=== PATIENT | female | born 1975 | race Caucasian/White ===

== ENCOUNTER 2020-06-21 13:59 | Observation (INO) | payer MEDICAID, SELFPAY ==
--- NOTE | ~2020-06-21 | CT_ITS ---
EXAMINATION: CT abdomen pelvis w con DATE: 06/21/2020 15:17 INDICATION: Nausea and vomiting. Jaundice. Right abdominal pain. TECHNIQUE: Computed tomography (CT) of the abdomen and pelvis was performed with 100 mL Omnipaque 350 intravenous contrast. Automated exposure control and iterative reconstruction technique were employe d. The dose-length product was 306.81 mGy-cm. COMPARISON: None. FINDINGS: The visualized portions of the lung bases demonstrate mild atelectasis. No pleural effusion . The heart size is normal. No pericardial effusion. The liver demonstrates diffuse steatosis and prema face nodularity, consistent with cirrhosis. The gallbladder is normal in size. Gallbladder wall thick ening is likely secondary to chronic liver disease. There is splenomegaly measuring 15.4 cm. Paraesop hageal varices are noted. There is a paraumbilical portacaval shunt. The pancreas, adrenal glands, an d left kidney are normal. There is focal parenchymal volume loss in right kidney upper pole. There is a 5 mm cyst in right kidney. There is a small volume of ascites. There is an intrauterine device in expected position. There are no dilated loops of bowel. The appendix is not visualized. There is mild periportal and aortocaval lymphadenopathy, likely reactive. There is edema of the intra-abdominal fa t. There is mild lumbar spondylosis. There is a healing fracture of right 10th rib. IMPRESSION: 1. Cirrhosis of the liver with portal venous hypertension. 2. Small volume of ascites, likely not enough for paracentesis. 3. Mild abdominal lymphadenopathy, likely reactive. Reviewed, dictated and finalized at location A.
[2020-06-21 14:00] VITALS: BP 155/93; PULSE 112; RESP 15; TEMP 36.6; O2SAT 100
[2020-06-21 14:24] LABS: Basophils Absolute Auto 0.1 K/mm3 (0.0-0.1); Basophils Percent Auto 0.7 % (0.2-1.2); Eosinophils Absolute Auto 0.1 K/mm3 (0-0.3); Eosinophils Percent Auto 0.7 % (0-4.4); Hematocrit 39.8 % (37.0-47.0); Hemoglobin 13.5 g/dL (12.0-15.0); Immature Granulocyte Absolute 0.03 K/mm3 (0.00-0.031); Immature Granulocyte Percent A 0.4 % (0-0.5); Lymphocytes Absolute Auto 1.09 K/mm3 (0.9-3.2); Mean Corpuscular HGB Conc 33.9 g/dl (32-36); Mean Corpuscular Hemoglobin 34.5 pg (26-34); Mean Corpuscular Volume 101.8 fl (80-100); Mean Platelet Volume 11.5 fl (7.4-10.4); Monocytes Absolute Auto 0.7 K/mm3 (0.1-0.6); Monocytes Percent Auto 9.2 % (2.6-8.5); Neutrophils Absolute Auto 5.4 K/mm3 (1.3-6.7); Platelet Count Result 79 k/mm3 (150-375); Red Blood Count 3.91 M/mm3 (4.2-5.4); Red Cell Distribution Width 14.6 % (11.5-14.5); White Blood Count 7.3 K/mm3 (4.5-10.0)
[2020-06-21 14:37] LABS: Ammonia 14 umol/L (9-30); Lactic Acid Reflex 1.6 mmol/L (0.7-2.1)
[2020-06-21 14:38] LABS: Alanine Aminotransferase 52 U/L (4-35); Albumin Level 4.4 g/dL (3.5-5.1); Alkaline Phosphatase 322 U/L (38-126); Anion Gap 18.2 mmol/L (7-16); Aspartate Amino Transferase 220 U/L (14-36); Bilirubin,Total 15.7 mg/dL (0.2-1.3); Blood Urea Nitrogen 7 mg/dL (7-17); Calcium 9.4 mg/dL (8.4-10.2); Carbon Dioxide 26 mmol/L (22-30); Chloride 90 mmol/L (98-107); Estimated CRCL calculation 126 ml/min; Estimated Glomerular Filt Rate > 60; Glucose 92 mg/dL (65-105); Lipase 363 U/L (23-300); Potassium 3.2 mmol/L (3.4-5.0); Sodium 131 mmol/L (137-145)
[2020-06-21 15:06] LABS: Add Urine Microscopic? YES; Amorphous Sediment Urine Few; Appearance Urine Clear (Clear); Bacteria Urine 4+ /hpf; Bilirubin Urine 2+ (Negative); Blood Urine 1+ (Negative); Color Urine Amber (Yellow); Glucose Urine UA Negative (Negative); Ketones Urine 1+ mg/dL (Negative); Leukocyte Esterase Ur 2+ LEU/UL (Negative); Mucus Urine Rare /lpf; Nitrate Urine Positive (Negative); Protein Urine 1+ mg/dL (Negative); RBC Urine 0-2 /hpf (0-2); Specific Grav Ur 1.015 (1.001-1.035); Squamous Epithelial Cell Urine Many /hpf (Few); WBC Urine >75 /hpf
--- NOTE | 2020-06-21 15:31 | ED.ABDPAIN ---
HPI - Abdominal Pain General Chief Complaint: Abdominal Pain Stated Complaint: liver issues Time Seen by Provider: 06/21/20 15:00 Source: patient History of Present Illness HPI narrative: 45 years old white female presents with abdominal bloating and intermittent vomiting for the last 2 months. Right upper quadrant and yellow change of the conjunctiva over the last 2 days. Patient denies any fever, chills. Patient does not smoke and drinks on the weekend, history of section x2 and IUD. Patient drove herself to the emergency room. Related Data Home Medications Medication Instructions Recorded Confirmed doxycycline hyclate 06/21/20 Allergies Allergy/AdvReac Type Severity Reaction Status Date / Time No Known Allergies Allergy Verified 06/21/20 14:09 Review of Systems Review of Systems: Narrative: CONSTITUTIONAL: Denies fever, chills, or sweats. EYES: Denies visual changes, redness, or discharge. ENT: Denies rhinorrhea, congestion, sore throat, or otalgia. CARDIOVASCULAR: Denies chest pain, palpitations, or edema. RESPIRATORY: Denies cough or dyspnea. GASTROINTESTINAL: Right abdominal pain, abdominal distention GENITOURINARY: Denies dysuria or hematuria. SKIN: Denies rash or itching. MUSCULOSKELETAL: Denies back pain, joint pain, or myalgia. NEUROLOGIC: Denies headache, numbness, or weakness. PSYCHIATRIC: Denies anxiety or depression. [facility] Surgical History Surgical History H/O: History of tonsillectomy and adenoidectomy Social History Social History Smoking status: Never smoker Gender identity (if verbalized by the patient): Female Exam Narrative: Exam Narrative: General appearance: Well-developed, well-nourished Skin: Normal color Head: Normocephalic, nontraumatic Eyes: Yellow conjunctiva ENT: Oropharynx normal, ears normal, nose normal Neck: Supple, nontender Chest and respiratory: Airway patent, no respiratory distress, no accessory muscle use Heart: Regular rate/rhythm Abdomen: Soft, diffuse tenderness right upper quadrant, questionable hepatomegaly, large distended abdomen Vascular: Normal peripheral pulses, normal capillary refill. Musculoskeletal: Normal range of motion, nontender back Neurologic: Alert and oriented ?3, [employer]PUT[employer] is normal as tested, no gross motor deficit Course Course Emergency Course: Stable Vital Signs Vital signs: Vital Signs Temperature 36.6 C 06/21/20 14:00 Pulse Rate 112 H 06/21/20 14:00 Respiratory Rate 15 06/21/20 14:00 Blood Pressure 155/93 H 06/21/20 14:00 Pulse Oximetry 100 06/21/20 14:00 Temperature 36.6 C 06/21/20 14:00 Pulse Rate 112 H 06/21/20 14:00 Respiratory Rate 15 06/21/20 14:00 Blood Pressure 155/93 H 06/21/20 14:00 Pulse Oximetry 100 06/21/20 14:00 MDM - Abdominal Pain MDM Narrative Medical decision making narrative: Patient presents with painless jaundice. Raises the suspicious for pancreatic cancer. Reviewed labs, CT abdomen pelvis with IV contrast, IV fluid started. Further plan to follow Differential Diagnosis Differential diagnosis: Likely pancreatitis and other (Gallbladder pathology, pancreatic cancer, intra-abdominal malignancy, ovarian cancer with metastasis) Lab Data Result diagrams: 06/21/20 14:13 06/21/20 14:13 Labs: Lab Results 06/21/20 06/21/20 06/21/20 Range/Units 14:13 14:13 14:13 WBC 7.3 (4.5-10.0) K/mm3 RBC 3.91 L (4.2-5.4) M/mm3 Hgb 13.5 (12.0-15.0) g/dL Hct 39.8 (37.0-47.0) % MCV 101.8 H (80-100) fl MCH 34.5 H (26-34) pg MCHC
[2020-06-21] MEDS: POTASSIUM CHLORIDE 20 MEQ TABLET PO (17:02)
[2020-06-21 18:21] VITALS: BP 127/77; PULSE 112; RESP 16; TEMP 37; O2SAT 99
--- NOTE | 2020-06-21 18:23 | ADMGEN ---
This patient, Alea Garcia, was admitted to Medical Room 251-01. Patient/family oriented to hospital policies and general routines including ID bracelet, bed and alarms, visiting hours, pain management, procedures, bathroom and other care routines, personal items, smoking policy, room service/diet, and visiting hours. Valuables list has been completed. Information on how to activate the Rapid Response Team has been discussed. Patient/Family are encouraged to report perceived risks to care and to ask questions if they do not understand what they are told or what they should do.
[2020-06-21 18:45] VITALS: BMI 23.7
--- NOTE | 2020-06-21 20:57 | PM.IMHP ---
H&P: HPI History of Present Illness Date/Time: 06/21/20 20:57 Chief complaint: Jaundice/liver cirrhosis w ascited/uti/hyponatremi Narrative: Alea Garcia is a 45 year old female who states that she does not drink every day but has been drinking more and fell last year than she usually does. She drinks beer or mixed drinks. She stated that her last drink was this last Wednesday. She had been at the [place] [facility] and had been drinking from Wednesday through Wednesday. She recalls what happened over the weekend so she does not feel like she was that intoxicated where she did remember what happened. She said she does not drink every day and she does not have any visual or auditory hallucinations and she does not have any shakes. 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 But since COVID outbreaks she has been at home and unemployed. So she has been drinking more. The patient has been having some abdominal bloating and she stated that it has just been getting worse the last couple months. And she has been having some intermittent vomiting for the last 2 months. She noticed over the last couple days her eyes became more jaundice. And her abdomen distended. She stated that she also had some constipation and she tried to eat more fiber. She denies any fever chills. She had no urinary symptoms. However today she was found have UTI was started on Rocephin. She has no prior history of having hepatitis. She had a CT of the abdomen which was read as cirrhosis of the liver with portal venous hypertension. Small volume of ascites, likely not enough for paracentesis. Mild abdominal lymphadenopathy likely reactive. GI has been consulted. Review of Systems Review of Systems: All systems reviewed & are unremarkable except as noted in HPI and below Constitutional: Constitutional: Reports as per HPI and Reports no additional constitutional complaints Eyes: Eyes: Reports as per HPI and Reports no additional eye complaints ENT: Reports system reviewed and no additional complaints, except as documented and Reports Normal hearing present Cardiovascular: Cardiovascular: Reports no additional cardiovascular complaints Respiratory: Respiratory: Reports no additional respiratory complaints and Reports no additional respiratory complaints Gastrointestinal: Gastrointestinal: Reports as per HPI and Reports no additional gastrointestinal complaints Musculoskeletal: Musculoskeletal: Reports no additional musculoskeletal complaints Integumentary/Breasts: Skin/Breast: Reports system reviewed and no additional complaints, except as docu and Reports as per HPI Neurologic: Reports system reviewed and no additional complaints, except as documented, Reports as per HPI and Reports Normal hearing present Psychiatric: Psychiatric: Reports no additional psychiatric complaints and Reports as per HPI Endocrine: Endocrine: Reports no additional endocrine complaints Hematologic/Lymphatic: Hematologic/Lymphatic: Reports no additional hematologic/lymphatic complaints Allergic/Immunologic: Allergic/Immunologic: Reports no additional allergic/immunologic complaints [facility] Surgical History Surgical History (Updated 06/21/20 @ 21:00 by Sayra Oliveira NP) H/O: x2 History of tonsillectomy and adenoidectomy Family History Family History (Updated 06/21/20 @ 21:02 by Sayra Oliveira NP) Mother Healthy adult Father Healthy adult Sibling Healthy adult Social History Social History (Updated 06/21/20 @ 21:05 by Sayra Oliveira NP) Social History: the patient had a long-term relationship for about 25 years and broken off about a year ago. She has 2 children. 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 Patient could not quantify how much she drinks because it is sporadic. She drink Wednesday through Wednesday this past week she drinks anywhere from beer to mixed drinks. She denies any toba
[2020-06-21 21:18] VITALS: BP 148/90
[2020-06-21 22:00] VITALS: BP 106/87; PULSE 107; RESP 20; TEMP 37.2; O2SAT 98
[2020-06-22] VITALS (8 sets, daily range): BP systolic 106–119; BP diastolic 74–87; PULSE 87–107; RESP 16–20; TEMP 36.6–36.8; O2SAT 98–100
[2020-06-22 05:43] LABS: Hematocrit 33.5 % (37.0-47.0); Hemoglobin 11.5 g/dL (12.0-15.0); Mean Corpuscular HGB Conc 34.3 g/dl (32-36); Mean Corpuscular Hemoglobin 34.5 pg (26-34); Mean Corpuscular Volume 100.6 fl (80-100); Red Blood Count 3.33 M/mm3 (4.2-5.4); Red Cell Distribution Width 14.6 % (11.5-14.5); White Blood Count 5.3 K/mm3 (4.5-10.0)
[2020-06-22 05:44] LABS: Basophils Percent Auto 0.8 % (0.2-1.2); Eosinophils Absolute Auto 0.1 K/mm3 (0-0.3); Eosinophils Percent Auto 1.3 % (0-4.4); Immature Granulocyte Absolute 0.03 K/mm3 (0.00-0.031); Immature Granulocyte Percent A 0.6 % (0-0.5); Immature Platelet Fraction Pct 7.8 % (0.9-11.2); Lymphocytes Absolute Auto 1.01 K/mm3 (0.9-3.2); Lymphocytes Percent Auto 18.9 % (18.3-44.2); Mean Platelet Volume 11.6 fl (7.4-10.4); Monocytes Absolute Auto 0.6 K/mm3 (0.1-0.6); Monocytes Percent Auto 10.5 % (2.6-8.5); Neutrophils Absolute Auto 3.6 K/mm3 (1.3-6.7); Neutrophils Percent Auto 67.9 % (45.5-73.1); Platelet Count Result 64 k/mm3 (150-375)
[2020-06-22 05:56] LABS: Alanine Aminotransferase 42 U/L (4-35); Albumin Level 3.6 g/dL (3.5-5.1); Alkaline Phosphatase 233 U/L (38-126); Anion Gap 15.3 mmol/L (7-16); Aspartate Amino Transferase 154 U/L (14-36); Blood Urea Nitrogen 5 mg/dL (7-17); CRP 5.7 mg/dL (<1.0); Calcium 8.7 mg/dL (8.4-10.2); Carbon Dioxide 26 mmol/L (22-30); Chloride 94 mmol/L (98-107); Estimated CRCL calculation 126 ml/min; Estimated Glomerular Filt Rate > 60; Glucose 85 mg/dL (65-105); Lactate Dehydrogenase 358 U/L (313-618); Lipase 309 U/L (23-300); Magnesium 1.6 mg/dL (1.6-2.3); Potassium 3.3 mmol/L (3.4-5.0); Sodium 132 mmol/L (137-145)
[2020-06-22 07:01] LABS: Hepatitis B Surface Antigen Negative (Negative)
[2020-06-22 07:07] LABS: HAV RESULT Negative (Negative); Hepatitis B Core IgM Result Negative (Negative)
[2020-06-22 07:19] LABS: Hepatitis C Virus Antibody Negative (Negative)
[2020-06-22] MEDS: THIAMINE HCL 100 MG TABLET PO (08:16)
[2020-06-22] MEDS: FOLIC ACID 1 MG TABLET PO (08:17)
[2020-06-22] MEDS: POTASSIUM CHLORIDE 20 MEQ TABLET.ER PO ×2 (08:17→16:49)
[2020-06-22 09:01] LABS: INR 1.4
[2020-06-22 09:13] LABS: Iron 85 ug/dL (37-170)
[2020-06-22 09:22] LABS: Percent Iron Saturation 36 % (20-50)
[2020-06-22 10:34] LABS: Folic Acid 4.6 ng/mL (2.76->20)
--- NOTE | 2020-06-22 10:34 | WPDGICN ---
Assessment and Plan Assessment and plan (1) Alcohol abuse: Code(s): F10.10 - Alcohol abuse, uncomplicated Status: Acute Assessment and Plan: patient with long history of alcohol abuse now has alcoholic liver disease. Alcohol rehab and alcohol support group will be essential after discharge. Long discussion with patient regarding this is primary therapeutic modality. (2) Jaundice: Code(s): R17 - Unspecified jaundice Status: Acute (3) Alcoholic hepatitis: Code(s): K70.10 - Alcoholic hepatitis without ascites Status: Acute Assessment and Plan: Marked enlargement of liver suggest alcoholic hepatitis. Plan is to consider trying steroids since because of profound elevation of her bilirubin. Additional lab work to exclude other etiologies for liver disease will be in progress but her felt less likely. (4) Cirrhosis of liver: Qualifiers: Ascites presence: with ascites Hepatic cirrhosis type: alcoholic cirrhosis Qualified Code(s): K70.31 - Alcoholic cirrhosis of liver with ascites Code(s): K74.60 - Unspecified cirrhosis of liver Status: Acute Assessment and Plan: CT scan reveals significant portal hypertension consistent with cirrhosis of the liver. Annual CT scan is suggested. Alpha fetoprotein is also suggested annually. Strict avoidance of alcohol strongly encourage. GI Consult Note Consult date/time: 06/22/20 10:34 HPI: Alea Garcia is a 45 year old female seen in evaluation at the request of the hospitalist service. Patient reports abdominal distention over the last several months. Jaundice over the last several weeks for this reason she presented to the emergency room last evening. Patient reports rather heavy alcohol intake since high school. She drinks admits to drinking heavily approximately 4 5 days a week. She denies abdominal pain. She denies any passing out spells or hallucinations. Upon presenting emergency room liver tests were quite high and she was admitted for further evaluation. Patient states her family history is noncontributory. There is no history of liver disease within the family. Patient has never been told she had hepatitis before. She never had jaundice prior to this episode. She has not traveled recently. She has had no unusual dietary intake and is on no medications. Review of Systems Review of Systems: All systems reviewed & are unremarkable except as noted in HPI and below PMFSH Surgical History Surgical History H/O: x2 History of tonsillectomy and adenoidectomy Family History Family History (Updated 06/21/20 @ 21:02 by Sayra Oliveira NP) Mother Healthy adult Father Healthy adult Sibling Healthy adult Social History Social History Social History: the patient had a long-term relationship for about 25 years and broken off about a year ago. She has 2 children. 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 Patient could not quantify how much she drinks because it is sporadic. She drink Wednesday through Wednesday this past week she drinks anywhere from beer to mixed drinks. She denies any tobacco use marijuana use or any illicit drugs. She chooses to have her mom is a durable power corporate attorney for healthcare. The patient would like to be a full code. Smoking status: Never smoker Alcohol intake: current Drinks per week: 3 Substance use: never Substance use type: does not use Gender identity (if verbalized by the patient): Female Spiritual care concerns: No Meds Home Medications and Allergies Home Medications Medication Instructions Recorded Confirmed Type doxycycline hyclate 100 mg PO DAILY 06/21/20 06/21/20 History Allergies Allergy/AdvReac Type Severity Reaction Status Date / Time No Known Allergies Allergy
[2020-06-22 11:07] LABS: Bilirubin Direct 9.1 mg/dL (0-0.3); Bilirubin Indirect 3.1 mg/dL (0-1.1); Bilirubin,Total 16.1 mg/dL (0.2-1.3)
--- NOTE | 2020-06-22 12:47 | PM.IMPN ---
Progress Note: A&P Assessment and Plan (1) Alcoholic hepatitis: Qualifiers: Ascites presence: with ascites Qualified Code(s): K70.11 - Alcoholic hepatitis with ascites Code(s): K70.10 - Alcoholic hepatitis without ascites Status: Acute Assessment and Plan: Low-dose prednisone 20 mg daily supportive care (2) Jaundice: Code(s): R17 - Unspecified jaundice Status: Acute Assessment and Plan: treat alcoholic hepatitis monitor labs (3) Alcohol abuse: Code(s): F10.10 - Alcohol abuse, uncomplicated Status: Acute Assessment and Plan: patient is interested and medication assisted treatment and alcohol rehab counseling she has a history of recent depression and may benefit from evaluation for that as well (4) Cirrhosis of liver: Qualifiers: Ascites presence: with ascites Hepatic cirrhosis type: alcoholic cirrhosis Qualified Code(s): K70.31 - Alcoholic cirrhosis of liver with ascites Code(s): K74.60 - Unspecified cirrhosis of liver Status: Acute Assessment and Plan: she likely has at least moderately severe cirrhosis with CT evidence of underlying portal hypertension discussed with patient and family that degree of hepatic dysfunction can be better assessed after resolution of the acute alcoholic hepatitis (5) Acute hyponatremia: Code(s): E87.1 - Hypo-osmolality and hyponatremia Status: Acute Assessment and Plan: monitor labs with treatment of acute hepatitis consider fluid restriction (6) Acute hypokalemia: Code(s): E87.6 - Hypokalemia Status: Acute Assessment and Plan: oral potassium supplementation follow-up labs (7) Urinary tract infection: Qualifiers: Hematuria presence: with hematuria Urinary tract infection type: acute cystitis Qualified Code(s): N30.01 - Acute cystitis with hematuria Code(s): N39.0 - Urinary tract infection, site not specified Status: Acute Assessment and Plan: continue ceftriaxone (8) Anemia, unspecified: Qualifiers: Anemia type: unspecified type Qualified Code(s): D64.9 - Anemia, unspecified Code(s): D64.9 - Anemia, unspecified Status: Acute Assessment and Plan: likely due to underlying cirrhosis with portal hypertension follow-up lab (9) Thrombocytopenia: Code(s): D69.6 - Thrombocytopenia, unspecified Status: Acute Assessment and Plan: likely due to cirrhosis with portal hypertension as well as alcohol toxicity to marrow follow-up lab Subjective Date/time seen: 06/22/20 12:47 Interval history: Admitted 06/21 for alcoholism relapse with acute alcoholic hepatitis superimposed on cirrhosis. Had some RUQ tenderness yesterday. None today. Denied bleeding. Review of Systems Review of Systems: All systems reviewed & are unremarkable except as noted in HPI and below Exam Narrative: Exam Narrative: HEENT: EOMI, PERRL, sclerae ICTERIC, pharyngeal mucosa pink and intact NECK: No JVD, adenopathy, or thyromegaly CHEST: Clear to auscultation. Normal effort. HEART: NL S1/S2, regular, no murmur ABDOMEN: BS+, nontender, no mass, no bruits. PROTUBERANT, LIVER MARGIN FIRM BUT NOT ENLARGED, SPLEEN NOT PALPABLE EXTREMITIES: No cyanosis, edema, or clubbing NEUROLOGIC: CN intact and symmetric to inspection. MUSCULOSKELETAL: Tone and strength symmetric. No tremor. PSYCH: Alert. Oriented to person, place, and time. Objective Data Vital Signs Vital Signs: Vital Signs - 24 hr 06/21/20 14:00 06/21/20 18:21 06/21/20 21:18 Temperature 97.8 F 98.6 F Pulse Rate 112 H 112 H Pulse Rate [Bilateral Radial] Respiratory Rate 15 16 Blood Pressure 155/93 H 127/77 148/90 H Pulse Oximetry 100 99 06/21/20 22:00 06/22/20 00:00 06/22/20 04:00 Temperature 98.9 F Pulse Rate 107 H Pulse Rate [Bilateral Radial] 107 H 98 Respiratory Rate 20 B
[2020-06-23 05:50] VITALS: BP 123/78; PULSE 96; RESP 16; TEMP 36.9; O2SAT 100
[2020-06-23 07:42] LABS: Hemoglobin 12.4 g/dL (12.0-15.0); Immature Platelet Fraction Pct 7.4 % (0.9-11.2); Mean Corpuscular HGB Conc 34.4 g/dl (32-36); Mean Corpuscular Hemoglobin 35.1 pg (26-34); Mean Platelet Volume 12.4 fl (7.4-10.4); Platelet Count Result 76 k/mm3 (150-375); Red Blood Count 3.53 M/mm3 (4.2-5.4); Red Cell Distribution Width 15.2 % (11.5-14.5); White Blood Count 4.6 K/mm3 (4.5-10.0)
[2020-06-23 08:00] VITALS: PULSE 96; RESP 16; O2SAT 100
[2020-06-23 08:06] LABS: Alanine Aminotransferase 47 U/L (4-35); Albumin Level 3.8 g/dL (3.5-5.1); Alkaline Phosphatase 242 U/L (38-126); Anion Gap 13.7 mmol/L (7-16); Aspartate Amino Transferase 161 U/L (14-36); Blood Urea Nitrogen 5 mg/dL (7-17); Carbon Dioxide 28 mmol/L (22-30); Chloride 95 mmol/L (98-107); Estimated CRCL calculation 126 ml/min; Estimated Glomerular Filt Rate > 60; Glucose 82 mg/dL (65-105); Potassium 3.7 mmol/L (3.4-5.0); Sodium 133 mmol/L (137-145)
--- NOTE | 2020-06-23 08:21 | WPDGIPROGNO ---
Progress Note: A&P Additional Plan Patient alert and comfortable this morning. She denies abdominal pain. Tolerating diet. Physical exam reveals marked scleral icterus. Lungs are clear. Heart without murmur. Abdomen bowel sounds present soft nontender marked hepatomegaly evident. Labs reveal total bilirubin of 16. Direct 9.1, AST 161, ALT 47, alk-phos 242. Platelets are low at 72,000 two thousand. Impression 1. Alcoholism. Patient will need strict alcohol avoidance after discharge. Support group strongly encourage. 2. Alcoholic liver disease. Enlarged liver suggesting alcoholic hepatitis, CT findings consistent with cirrhosis. Splenomegaly evident along with portal hypertension. We will continue low-dose steroids for apparent alcoholic hepatitis. Taper slowly after discharge. Over the next several weeks. 3. thrombocytopenia. appears to be secondary to portal hypertension and splenomegaly. Monitor conservatively at this point. 4. Hyperbilirubinemia and this is quite elevated. Will need to be followed closely after discharge. Plan is to repeat LFTs shortly after discharge and then weekly. I will anticipate seeing her in follow-up in the office in 1 week. Subjective Date/time seen: 06/23/20 08:21 Objective Data Vital Signs Vital Signs: Vital Signs - 24 hr 06/22/20 12:00 06/22/20 14:00 06/22/20 16:00 Temperature 98.0 F Pulse Rate 101 H Pulse Rate [Bilateral Radial] 98 98 Respiratory Rate 18 Blood Pressure 119/76 119/76 119/76 Pulse Oximetry 100 06/22/20 21:45 06/23/20 05:50 Temperature 97.9 F 98.5 F Pulse Rate 87 96 Pulse Rate [Bilateral Radial] Respiratory Rate 16 16 Blood Pressure 117/74 123/78 Pulse Oximetry 98 100 Intake/Output Intake/Output: Intake & Output 06/20/20 06/21/20 06/22/20 06/23/20 23:59 23:59 23:59 23:59 Intake Total 50 2875 250 Balance 50 2875 250 Meds/Results Medications: Active Medications Generic Name Dose Route Start Last Admin Trade Name Freq PRN Reason Stop Dose Admin Chlordiazepoxide HCl 25 mg 06/21/20 21:18 Librium Po PO Q6H PRN Withdrawal Folic Acid 1 mg 06/22/20 09:00 06/22/20 08:17 Folic Acid PO 1 mg DAILY ROGER Administration Ceftriaxone Sodium/Dextrose 1 gm in 50 mls @ 100 mls/hr 06/22/20 18:00 06/22/20 17:45 Rocephin 1 Gm/D5w 50 Ml IVPB Infused QPM ROGER Infusion Potassium Chloride 20 meq 06/22/20 09:00 06/22/20 16:49 Kcl Tablet PO 20 meq BID ROGER Administration Prednisone 20 mg 06/23/20 08:00 Prednisone PO DAILY@0800 ROGER Thiamine HCl 100 mg 06/22/20 09:00 06/22/20 08:16 Vitamin B-1 PO 100 mg QAM ROGER Administration Radiology Results: ITS Impressions Abdomen/Pelvis CT 06/21/20 15:35 IMPRESSION: 1. Cirrhosis of the liver with portal venous hypertension. 2. Small volume of ascites, likely not enough for paracentesis. 3. Mild abdominal lymphadenopathy, likely reactive. Labs Labs: Laboratory Results - last 24 hr 06/22/20 06/22/20 06/22/20 08:33 08:33 08:33 WBC RBC Hgb Hct MCV MCH MCHC RDW Plt Count MPV % Immature Plt Fraction PT 17.0 H INR 1.4 Sodium Potassium Chloride Carbon Dioxide Anion Gap BUN Creatinine Estim Creat Clear Calc Estimated GFR Glucose Calcium Iron 85 TIBC 236 L % Saturation 36 Total Bilirubin Direct Bilirubin Indirect Bilirubin AST ALT Alkaline Phosphatase Total Protein Albumin Vitamin B12 772.0 Folate 4.6 Random Cortisol 06/22/20 06/22/20 06/23/20 08:33 08:34 06:50 WBC 4.6 RBC 3.53 L Hgb 12.4 Hct 36.0 L MCV 102.0 H MCH 35.1 H MCHC 34.4 RDW 15.2 H Plt Count 76 L MPV 12.4 H % Immature Plt Fraction 7.4 PT INR Sodium Potassium Chloride Carbon Dioxide Anion Gap BUN Creatinine Estim Creat Clear C
[2020-06-23] MEDS: FOLIC ACID 1 MG TABLET PO (08:48)
[2020-06-23] MEDS: predniSONE 20 MG TABLET PO (08:48)
[2020-06-23] MEDS: POTASSIUM CHLORIDE 20 MEQ TABLET.ER PO (08:49)
[2020-06-23] MEDS: THIAMINE HCL 100 MG TABLET PO (08:49)
[2020-06-23 13:23] VITALS: BP 118/75; PULSE 97; RESP 18; TEMP 36.6; O2SAT 100
--- NOTE | 2020-06-23 13:37 | PM.DS ---
DS: Admitting Diagnosis Admitting Diagnosis Admitting Diagnosis: Alcoholic cirrhosis of liver with ascites DS: Discharge Diagnosis Discharge Diagnosis (1) Alcoholic hepatitis: Qualifiers: Ascites presence: with ascites Qualified Code(s): K70.11 - Alcoholic hepatitis with ascites Code(s): K70.10 - Alcoholic hepatitis without ascites Status: Acute Assessment and Plan: Patient has had heavy alcohol intake for many years. Alcohol cessation is imperative and was discussed at great length. She was provided information for alcohol rehab programs and support groups. She plans to establish care at [facility] for rehab. She was started on low dose prednisone taper 20 mg daily x7 days with decrease by 5 mg weekly. She will obtain repeat labs in 3 days and follow up with Dr. Stubbs in 1 week. (2) Jaundice: Code(s): R17 - Unspecified jaundice Status: Acute Assessment and Plan: Her LFTs and bilirubin were quite elevated and she had marked scleral icterus and jaundice, as well as hepatomegaly. Suspect improvement of jaundice with treatment of alcoholic hepatitis which is primarily with alcohol cessation. Repeat labs in 3 days. (3) Alcohol abuse: Code(s): F10.10 - Alcohol abuse, uncomplicated Status: Acute Assessment and Plan: Discussed at length. She recognizes that alcohol use is a problem for her and understands the need for cessation. She is motivated to stop drinking. She is interested in rehab counseling and may consider medication assisted treatment. She did not have any signs of alcohol withdrawal. Her last drink was 1 week ago. She was provided resources for programs. Begin thiamine and folic acid. (4) Cirrhosis of liver: Qualifiers: Ascites presence: with ascites Hepatic cirrhosis type: alcoholic cirrhosis Qualified Code(s): K70.31 - Alcoholic cirrhosis of liver with ascites Code(s): K74.60 - Unspecified cirrhosis of liver Status: Acute Assessment and Plan: She likely has at least moderately severe cirrhosis with CT evidence of underlying portal hypertension and small volume of ascites. She will follow up with Dr. Stubbs and degree of hepatic dysfunction can be better assessed after resolution of the acute alcoholic hepatitis. (5) Acute hyponatremia: Code(s): E87.1 - Hypo-osmolality and hyponatremia Status: Acute Assessment and Plan: Mildly low and continued to increase modestly. Repeat BMP in 3 days. (6) Acute hypokalemia: Code(s): E87.6 - Hypokalemia Status: Acute Assessment and Plan: Potassium was supplemented and improved. Repeat BMP in 3 days. (7) Urinary tract infection: Qualifiers: Hematuria presence: with hematuria Urinary tract infection type: acute cystitis Qualified Code(s): N30.01 - Acute cystitis with hematuria Code(s): N39.0 - Urinary tract infection, site not specified Status: Acute Assessment and Plan: Urine culture grew E. coli. Treated with IV rocephin x2 doses. Will continue macrobid for 3 days to complete a total 5 days of antibiotic therapy. No evidence of sepsis, remained afebrile, no leukocytosis. (8) Anemia, unspecified: Qualifiers: Anemia type: unspecified type Qualified Code(s): D64.9 - Anemia, unspecified Code(s): D64.9 - Anemia, unspecified Status: Acute Assessment and Plan: Macrocytic. Likely due to underlying cirrhosis with portal hypertension. Repeat labs in 3 days. Continue thiamine and folic acid. (9) Thrombocytopenia: Code(s): D69.6 - Thrombocytopenia, unspecified Status: Acute Assessment and Plan: Likely due to cirrhosis with portal hypertension as well as alcohol toxicity to marrow. Repeat labs in 3 days. DS: Summary Hospital Course Reason for hospitalization: Abdominal pain, jaundice Hospital Course: Date of admission: 05/24
[2020-06-27 17:04] LABS: Alpha Fetoprotein Tumor Marker 5.5 ng/mL (<6.1)
== END 2020-06-23 15:17 | disposition home or self-care (01) ==
LOC: ANHED 16:34 → ANH2MED 16:58
PROVIDERS: Internal Medicine; Internal Medicine Gastroenterology; Nurse Practitioner; Admitting Provider Internal Medicine; Emergency Provider Emergency Medicine; Visit Provider Family Medicine
DX: K70.11 Alcoholic hepatitis with ascites (principal); K70.31 Alcoholic cirrhosis of liver with ascites; K76.6 Portal hypertension; F10.10 Alcohol abuse, uncomplicated; E87.1 Hypo-osmolality and hyponatremia; E87.6 Hypokalemia; N30.01 Acute cystitis with hematuria; B96.20 Unspecified Escherichia coli [E. coli] as the cause of diseases classified elsewhere; D53.9 Nutritional anemia, unspecified; D69.6 Thrombocytopenia, unspecified
CPT/HCPCS: 36415; 74177; 80053; 80074; 81001; 81025; 82105; 82140; 82247; 82248; 82533; 82607; 82728; 82746; 83540; 83550; 83605; 83615; 83690; 83735; 84443; 85025; 85027; 85055; 85610; 86038; 86140; 87077; 87086; 87088; 87186; 96365; 99285; A9270; G0378; G0379; J0696; J7512; Q9967

== ENCOUNTER 2020-06-26 10:12 | Outpatient (CLI) | payer MEDICAID, SELFPAY ==
[2020-06-26 10:56] LABS: Hemoglobin 12.1 g/dL (12.0-15.0); Mean Corpuscular HGB Conc 34.6 g/dl (32-36); Mean Corpuscular Hemoglobin 35.4 pg (26-34); Mean Corpuscular Volume 102.3 fl (80-100); Mean Platelet Volume 11.5 fl (7.4-10.4); Platelet Count Result 160 k/mm3 (150-375); Red Blood Count 3.42 M/mm3 (4.2-5.4); Red Cell Distribution Width 15.8 % (11.5-14.5); White Blood Count 6.2 K/mm3 (4.5-10.0)
[2020-06-26 11:12] LABS: INR 1.4; Prothrombin Time 16.9 Seconds (11.1-14.7)
[2020-06-26 11:22] LABS: Alanine Aminotransferase 82 U/L (4-35); Albumin Level 3.8 g/dL (3.5-5.1); Alkaline Phosphatase 193 U/L (38-126); Anion Gap 14.2 mmol/L (7-16); Aspartate Amino Transferase 245 U/L (14-36); Bilirubin,Total 13.6 mg/dL (0.2-1.3); Blood Urea Nitrogen 10 mg/dL (7-17); Calcium 9.1 mg/dL (8.4-10.2); Carbon Dioxide 27 mmol/L (22-30); Chloride 96 mmol/L (98-107); Estimated Glomerular Filt Rate > 60; Glucose 130 mg/dL (65-105); Potassium 3.2 mmol/L (3.4-5.0); Sodium 134 mmol/L (137-145)
== END 2020-06-26 10:13 | disposition home or self-care (01) ==
PROVIDERS: Visit Provider Physician Assistant
DX: E87.1 Hypo-osmolality and hyponatremia (principal); E87.6 Hypokalemia; K70.10 Alcoholic hepatitis without ascites; D69.6 Thrombocytopenia, unspecified; K74.60 Unspecified cirrhosis of liver
CPT/HCPCS: 36415; 80053; 85027; 85610

== ENCOUNTER 2020-07-08 09:53 | Outpatient (CLI) | payer MEDICAID, SELFPAY ==
[2020-07-08 10:31] LABS: Basophils Absolute Auto 0.1 K/mm3 (0.0-0.1); Basophils Percent Auto 0.6 % (0.2-1.2); Eosinophils Absolute Auto 0.1 K/mm3 (0-0.3); Eosinophils Percent Auto 1.3 % (0-4.4); Hemoglobin 12.7 g/dL (12.0-15.0); Immature Granulocyte Absolute 0.06 K/mm3 (0.00-0.031); Immature Granulocyte Percent A 0.6 % (0-0.5); Lymphocytes Absolute Auto 1.71 K/mm3 (0.9-3.2); Lymphocytes Percent Auto 16.5 % (18.3-44.2); Mean Corpuscular HGB Conc 33.4 g/dl (32-36); Mean Corpuscular Hemoglobin 34.6 pg (26-34); Mean Corpuscular Volume 103.5 fl (80-100); Mean Platelet Volume 12.1 fl (7.4-10.4); Monocytes Absolute Auto 1.1 K/mm3 (0.1-0.6); Monocytes Percent Auto 10.3 % (2.6-8.5); Neutrophils Absolute Auto 7.3 K/mm3 (1.3-6.7); Neutrophils Percent Auto 70.7 % (45.5-73.1); Platelet Count Result 156 k/mm3 (150-375); Red Blood Count 3.67 M/mm3 (4.2-5.4); Red Cell Distribution Width 14.8 % (11.5-14.5); White Blood Count 10.3 K/mm3 (4.5-10.0)
[2020-07-08 10:38] LABS: INR 1.3; Prothrombin Time 16.1 Seconds (11.1-14.7)
[2020-07-08 10:39] LABS: Partial Thromboplastin Time 33.2 SECONDS (22.3-36.8)
[2020-07-08 10:43] LABS: Alanine Aminotransferase 182 U/L (4-35); Albumin Level 4.1 g/dL (3.5-5.1); Alkaline Phosphatase 125 U/L (38-126); Anion Gap 10 mmol/L (8-16); Aspartate Amino Transferase 275 U/L (14-36); Bilirubin,Total 5.5 mg/dL (0.2-1.3); Blood Urea Nitrogen 14 mg/dL (7-17); Calcium 9.4 mg/dL (8.4-10.2); Carbon Dioxide 27 mmol/L (22-30); Chloride 97 mmol/L (98-107); Estimated Glomerular Filt Rate > 60; Glucose 81 mg/dL (65-105); Magnesium 2.2 mg/dL (1.6-2.3); Potassium 4.3 mmol/L (3.4-5.0); Sodium 134 mmol/L (137-145)
== END 2020-07-08 09:54 | disposition home or self-care (01) ==
LOC: ANHLAB 09:55
PROVIDERS: Visit Provider Internal Medicine
DX: K70.11 Alcoholic hepatitis with ascites (principal); E87.6 Hypokalemia; K74.60 Unspecified cirrhosis of liver
CPT/HCPCS: 36415; 80053; 83735; 85025; 85610; 85730

== ENCOUNTER 2020-09-10 10:17 | Outpatient (CLI) | payer OTHER, SELFPAY ==
[2020-09-10 10:55] LABS: Hematocrit 37.2 % (37.0-47.0); Hemoglobin 12.6 g/dL (12.0-15.0); Immature Platelet Fraction Pct 3.9 % (0.9-11.2); Mean Corpuscular HGB Conc 33.9 g/dl (32-36); Mean Corpuscular Hemoglobin 33.1 pg (26-34); Mean Corpuscular Volume 97.6 fl (80-100); Mean Platelet Volume 10.3 fl (7.4-10.4); Platelet Count Result 103 k/mm3 (150-375); Red Blood Count 3.81 M/mm3 (4.2-5.4); Red Cell Distribution Width 12.2 % (11.5-14.5); White Blood Count 5.8 K/mm3 (4.5-10.0)
[2020-09-10 11:08] LABS: Alanine Aminotransferase 25 U/L (4-35); Alkaline Phosphatase 68 U/L (38-126); Anion Gap 6 mmol/L (8-16); Aspartate Amino Transferase 57 U/L (14-36); Bilirubin,Total 3.3 mg/dL (0.2-1.3); Blood Urea Nitrogen 8 mg/dL (7-17); Calcium 9.6 mg/dL (8.4-10.2); Carbon Dioxide 29 mmol/L (22-30); Chloride 104 mmol/L (98-107); Estimated Glomerular Filt Rate > 60; Glucose 125 mg/dL (65-105); Potassium 3.6 mmol/L (3.4-5.0); Sodium 139 mmol/L (137-145)
== END 2020-09-10 10:18 | disposition home or self-care (01) ==
PROVIDERS: PCP Internal Medicine; Visit Provider Internal Medicine Gastroenterology
DX: K70.10 Alcoholic hepatitis without ascites (principal)
CPT/HCPCS: 36415; 80048; 80076; 85027; 85055

== ENCOUNTER 2020-11-01 10:21 | Outpatient (CLI) | payer OTHER, SELFPAY ==
--- NOTE | ~2020-11-01 | MM_ITS ---
EXAMINATION: MM screening aguilar BI w valerie HISTORY: Screening TECHNIQUE: Craniocaudal and mediolateral oblique 3-D tomosynthesis images were obtained and synthetic 2-D images were generated. CAD analysis was submitted and interpreted. COMPARISON: No prior mammogram is available for comparison at this institution. BREAST PARENCHYMAL COMPOSITION: The breasts are extremely dense, which lowers the sensitivity of mamm ography. FINDINGS: There is no evidence of suspicious mass, calcification, or architectural distortion to sugg est malignancy in either breast. There has been no suspicious interval change. IMPRESSION: 1. No mammographic evidence of malignancy. 2. Recommend routine screening mammography in one year. BI-RADS Category 1: Negative Reviewed, dictated and finalized at location A. [employer]
== END 2020-11-01 10:22 | disposition home or self-care (01) ==
LOC: ANHIMG 10:23
PROVIDERS: PCP Internal Medicine; Visit Provider Nurse Practitioner Obstetrics & Gynecology
DX: Z12.31 Encounter for screening mammogram for malignant neoplasm of breast (principal); G45.9 Transient cerebral ischemic attack, unspecified
CPT/HCPCS: 77063; 77067

== ENCOUNTER 2020-11-17 11:09 | Emergency (ER) | payer OTHER, SELFPAY ==
[2020-11-17 11:18] VITALS: BP 120/66; PULSE 89; RESP 16; TEMP 37.1; O2SAT 100
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
== END 2020-11-17 12:15 | disposition home or self-care (01) ==
PROVIDERS: Emergency Provider Nurse Practitioner; PCP Internal Medicine
DX: T23.131A Burn of first degree of multiple right fingers (nail), not including thumb, initial encounter (principal); X19.XXXA Contact with other heat and hot substances, initial encounter
CPT/HCPCS: 99212; G0463

== ENCOUNTER 2024-11-19 09:21 | Emergency (ER) | payer OTHER, SELFPAY ==
[2024-11-19 09:53] VITALS: BP 131/76; PULSE 90; RESP 16; TEMP 36.9; O2SAT 99
--- NOTE | 2024-11-19 10:22 | ED.URI ---
HPI - URI/Sore Throat General Chief Complaint: Upper Respiratory Infection Stated Complaint: Flu like symptoms Source: patient and RN notes reviewed Mode of arrival: ambulatory Limitations: no limitations History of Present Illness HPI Narrative: 49-year-old female presented for complaint of right ear pain, headache, body aches, sinus pressure/congestion, cough, fever/chills. Onset 3 days. Denies sob, wheezing, n/v/d. Taking Tylenol for pain. MD elicited complaint: cough Related Data Home Medications ?Medication ?Instructions ?Recorded ?Confirmed ?Last Taken ?Type doxycycline hyclate 100 mg tablet 100 mg PO DAILY 06/21/20 06/21/20 Unknown History Allergies Allergy/AdvReac Type Severity Reaction Status Date / Time No Known Allergies Allergy Verified 11/19/24 10:10 Review of Systems Review of Systems: CONSTITUTIONAL: Endorses malaise, chills, sweats, fever EYES: Denies visual changes, redness, or discharge ENT: Reports rhinorrhea, congestion, sinus pain, otalgia, sore throat CARDIOVASCULAR: Denies chest pain, palpitations, edema RESPIRATORY: Reports cough, post nasal drainage. Denies dyspnea GASTROINTESTINAL: Denies abdominal pain, nausea, vomiting, diarrhea MUSCULOSKELETAL: Endorses myalgia NEUROLOGIC: Denies headache PMFSH Surgical History Surgical History H/O: x2 History of tonsillectomy and adenoidectomy Family History Family History Mother Healthy adult Father Healthy adult Sibling Healthy adult Social History Social History Social History: the patient had a long-term relationship for about 25 years and broken off about a year ago. She has 2 children. 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 Patient could not quantify how much she drinks because it is sporadic. She drink Wednesday through Wednesday this past week she drinks anywhere from beer to mixed drinks. She denies any tobacco use marijuana use or any illicit drugs. She chooses to have her mom is a durable power personal injury attorney for healthcare. The patient would like to be a full code. Smoking status: Never smoker Alcohol intake: current Drinks per week: 3 Substance use: never Substance use type: does not use Living arrangements: with family Gender identity (if verbalized by the patient): Female Spiritual care concerns: No Exam Narrative: GENERAL: Ill-appearing, nontoxic no acute distress. EYES: PERRLA, conjunctivae clear ENT: Mucous membranes moist. Left TM pearly reyes with dull light reflex; right TM erythematous, purulent effusion, bulging and intact; canal not erythematous, no drainage no tragal tenderness. Oropharynx erythematous without lesions or exudate, no drooling, no hoarseness, no trismus, uvula midline. No tripod positioning, muffled voice, soft palate or pharyngeal wall bulging NECK: Supple. No lymphadenopathy CHEST: Clear to auscultation, breath sounds equal. No wheezing, rhonchi, rales, or stridor. No respiratory distress, speaks in full sentences. HEART: Regular rate and rhythm. No murmur heard. SKIN: Warm, dry, no rash. NEURO: Alert and oriented x3. PSYCH: Normal mood and affect Course Course Emergency Course: Patient is aware of diagnosis, understands and agrees to treatment plan. Anticipatory guidance given. Patient agrees to follow-up as directed and is aware of reasons to seek care at the emergency department. Portions of this record may have been created with voice recognition software Level of Care: Express Care Visit Vital Signs Vital signs: Vital Signs Temperature 98.5 F 11/19/24 09:53 Pulse Rate 90 11/19/24 09:53 Respiratory Rate 16 11/19/24 09:53 Blood Pressure 131/76 11/19/24 09:53 Pulse Oximetry 99 11/19/24 09:53 Temperature 98.5 F 11/19/24 09:53 Pulse Rate 90 11/19/24 09:53 Respiratory Rate 16 11/19/24 09:53 Blood Pressure 131/76 11/19/24 09:53 Pulse Oximetry 99 11/19/24 09:53 reviewed MDM - URI/Sore Throat MDM Narrative Medical decision making narrative: Positive COVID and right AOM. Discussed physical exam findings. Advised supportive measures and signs/symptoms to go to the ER. Pt is appropriate for outpt treatment and f/u. Differential Diagnosis Differential diagnosis: Likely upper respiratory infection, otitis media, sinusitis, viral infection, influenza and pharyngitis Discharge Plan Discharge Clinical Impression: COVID-19, Otitis media Patient Disposition: Home, Self-Care Condition: Stable Instructions: Antibiotic Form, COVID-19 (Coronavirus Disease 2019) (ED) Additional Instructions: Your rapid COVID test was positive today. The following updated recommendations have been made by the CDC and local Health Departments, regarding COVID-19: - When people get sick with a respiratory virus, they stay home and away from others. - Return to normal activities when, for at least 24 hours, symptoms are improving overall, and if a fever was present, it has been gone without use of a fever-reducing medication. - Once people resume normal activities, they are encouraged to take additional prevention strategies for the next 5 days to curb disease spread, such as taking more steps for beauty parlor cleaner air, enhancing hygiene practices, wearing a well-fitting mask, keeping a distance from others, and/or getting tested for respiratory viruses. - Enhanced precautions are especially important to protect those most at risk for severe illness, including those over 65 and people with weakened immune systems. Rest, stay hydrated. Tylenol and ibuprofen every 8 hours as needed Flonase/nasal spray, Zyrtec, cough syrup cold/flu medications for symptoms as needed Follow up with your primary care provider, call to schedule an appointment. Go to the ER for worsening symptoms or concerns. Patient Language: Sudanese Prescriptions: New amoxicillin-pot clavulanate 875-125 mg tablet 1 tablet PO Q12H 7 Days Qty: 14 0RF No Action doxycycline hyclate 100 mg tablet 100 mg PO DAILY Rx Instructions: started on 06/20/20 for rosacea thiamine HCl (vitamin B1) [Vitamin B-1] 100 mg Tablet 100 mg PO QAM Qty: 30 0RF folic acid 1 mg Tablet 1 mg PO DAILY Qty: 30 0RF prednisone 5 mg tablet See Rx Instructions .ROUTE .COMPLEX Qty: 50 0RF Rx Instructions: Take 4 tablets daily for 7 days, then take 3 tablets daily for 7 days nitrofurantoin monohyd/m-cryst [Macrobid] 100 mg capsule 100 mg PO Q12H 3 Days Qty: 6 0RF Rx Instructions: must administer with a meal/food Follow-up/Referrals: UNKNOWN,DOCTOR [Primary Care Provider] - Time of Disposition: 10:27
[2024-11-19 10:26] LABS: EDCOVIDSCREEN Positive (Negative); EDINFLUASCREEN Negative (Negative); EDINFLUBSCREEN Negative (Negative)
--- OUTSIDE RECORDS SUMMARY | 2024-11-26 05:23 | XMS_ITS | Encounter Summary ---
Author Organization [facility] Address [address] [place] [address] Care Team Providers Care Cabin Crew Name Role Phone Lee Campbell MD Primary Care Provider [phone] Mat Stubbs MD Unavailable [phone] Reason for Referral * Radiology Services (Routine) - Closed Specialty Diagnoses / Procedures Referred By Contac t Referred To Contact Ultrasound Diagnoses Alcoholic cirrhosis of liver without ascites (HCC) Procedures US ABDOMEN LIMITED Dirk Mcdermott MD [address] [place] [address] [address] Referral ID Status Reason Start Date Expiration Date Visits Re quested Visits Authorized [id number] Closed 01/08/2023 01/08/2024 1 1 METRIST OWNER * Radiology Services (Routine) - Closed Specialty Diagnoses / Procedures Referred By Contac t Referred To Contact Ultrasound Diagnoses Alcoholic cirrhosis of liver without ascites (HCC) Colon cancer screening Procedures US ABDOMEN LIMITED Dirk Mcdermott MD [address] [place] [address] [address] [place] [address] [address] Referral ID Status Reason Start Date Expiration Date Visits Re quested Visits Authorized [id number] Closed 01/08/2023 01/08/2024 1 1 METRIST OWNER Reason for Visit * Reason Comments Liver Problem Encounter Details Date Type Department Care Team (Late st Contact Info) Description 01/08/2023 9:00 AM OPTOMETRIST OWNER Office Visit [facility] - [place] [address] [place] [address], [place] [address] Dirk Mcdermott MD [address] [place] [address] [place] [address] Alcoholic cirrhosis of liver without ascites (HCC) (Primary Dx); Colon cancer screening Social History Tobacco Use Types Packs/Day Years Used Date Smoking Tobacco: Never Smokeless Tobacco: Never Tobacco Cessation:Counseling Given: Not Answered Alcohol Use Standard Drinks/Week Comments Not Currently 0 (1 standard drink = 0.6 oz pure alcohol) past use 07/11, beer, wine, and hard liquor Sex and Gender Information Value Date Recorded Sex Assigned at Female 12/08/2020 7:15 PM OPTOMETRIST OWNER Gender Identity Female 12/08/2020 7:15 PM OPTOMETRIST OWNER Sexual Orientation Straight 12/08/2020 7: 15 PM OPTOMETRIST OWNER documented as of this encounter Last Filed Vital Signs Vital Sign Reading Time Taken Comments Blood Pressure 126/82 01/08/2023 9:10 AM OPTOMETRIST OWNER Pulse 92 01/08/2023 9:10 AM OPTOMETRIST OWNER Temperature 36.4 ??C (97.6 ??F) 01/08/2023 9:10 AM CS T Respiratory Rate 16 01/08/2023 9:10 AM OPTOMETRIST OWNER Oxygen Saturation 100% 01/08/2023 9:10 AM OPTOMETRIST OWNER Inhaled Oxygen Concentration - - Weight 60.3 kg (133 lb) 01/08/2023 9:10 AM OPTOMETRIST OWNER Height 162.6 cm (5' 4 ) 01/08/2023 9:10 AM OPTOMETRIST OWNER Body Mass Index 22.83 01/08/2023 9:10 AM OPTOMETRIST OWNER documented in this encounter Patient Instructions * Patient Instructions* Dirk Mcdermott MD - 01/08/2023 9:50 AM OPTOMETRIST OWNER Never drink alcohol again Labs with ultrasound in 6 months and 12 months Hepatitis B vaccine sent to pharmacy get at month 0, 1 if not covered call to change to other version Call to schedule EGD and colonoscopy when insurance corrected METRIST OWNER documented in this encounter Progress Notes * Dirk Mcdermott MD - 01/08/2023 9:00 AM CST Liver Attending Note Referring physician: Enoc Primary Care Physician: Lee Campbell MD 46 year old female with h/o jaundice who presents for evaluation of alcohol 6 months of nausea and vomiting Summer 2019 presented with jaundice Since adult except for drank 1 glass to 1 bottle wine sometimes more per day stopped 06/2020 Had ascites, No paracentesis, no GI bleeding, CT abd done, no liver biopsy or EGD Treated with vitamins and for UTI Resolved increased abd girth everything went back to normal after stopping etoh No etoh, no AA or rehab, h/o DUI 10 yrs ago Spoke to counselor for mood stress Weight was 30 lbs higher prior to stopping etoh Patient reports no symptoms of increased abdominal girth, altered mental status or gastrointestinalbleeding Patient reports no history of hepatitis or jaundice. Patient denies transfusions, positive tattoos, no injection drug use. occassional CBD/THC gummy Patient reports no family history of liver disease. Patient denies use of OTC medications, herbs and supplements except as already listed. Subjective: Continues to abstain from etoh since 06/2020 Energy good Denies AMS, GI bleeding, increased abd girth Chief Complaint Patient presents with ??? Liver Problem Patient Active Problem List: Alcoholic cirrhosis of liver without ascites (CMS/HCC) Colon cancer screening Current Outpatient Medications Medication Sig ??? Hepatitis B Vac Recomb Adj (Heplisav-B) 20 MCG/0.5ML SOLN Inject 0.5 mL into muscle every 30 days Reasons: Hepatitis B ??? levonorgestrel (MIRENA, 52 MG,) 20 MCG/24HR IUD Mirena 20 mcg/24 hours (6 yrs) 52 mg intrauterine device Take by intrauterine route. ??? Multiple Vitamin (MULTIVITAMIN ADULT) TABS Take 1 tablet by mouth No current facility-administered medications for this visit. Past Medical History: Patient denies any new PMH or FH since last visit in the liver clinic with meor my physician operating room assistant except what has already been documented in [facility] Social History: Patient denies smoking and drinking Review of Symptoms: Review of Systems Respiratory: Negative for cough and shortness of breath. Cardiovascular: Negative for chest pain and palpitations. I reviewed the past medical history, social history, problem list and medication as documented in the [facility] EHR today. Objective: Physical Examination: Blood pressure 126/82, pulse 92, temperature 97.6 ??F (36.4 ??C), temperature source Temporal, resp. rate 16, height 1.626 m (5' 4 ), weight 60.3 kg (133 lb), SpO2 100 %.Body mass index is 22.83 kg/m??. General appearance Well nourished well developed no acute distress Eyes anicteric Skin no jaundice Lungs clear to ascultation bilaterally, no dullness Heart regular rate and rhythm no thrills Abdomen Bowel sounds normoactive soft non-tender, non-distended, no ascites, no masses mild hepatomegaly Extremities no clubbing cyanosis or edema Mental status Alert and oriented to person, place, time and situation. No asterixis Labs/data: Recent Labs Component Name 12/29/22113307/17/22 1302 02/13/22 1258 BUN 11 10 13 CREATININE 0.56 0.60 0.55* NA 138 142 140 POTASSIUM 4.0 3.8 3.7 CL 105 104 104 CO2 28 27 26 GLUCOSE 68* 82 85 CALCIUM 9.7 9.8 9.8 PROT 7.4 7.9 8.3 ALB 4.3 4.5 4.6 TBILI 1.1 1.6* 1.8* ALKPHOS 72 85 95 ALT 25 29 29 AST 32 40* 41* ANIONGAP 9 15 14 BCR 20 17 24* OSMOLALITY 284 292 289 AGRATIO 1.4 1.3 1.2 EGFR >90 >90 >90 Recent Labs Component Name 12/29/22113307/17/22 1302 02/13/22 1258 WBC 5.3 5.7 5.4 HGB 14.1 14.5 14.6 HCT 41.7 43.0 43.2 PLTCOUNT 77* 75* 80* Recent Labs Component Name 12/29/22113307/17/22 1302 04/15/21 1338 INR 1.2 1.1 1.2 02/13/22 12:58 Hepatitis A Virus Antibody Total Positive ! Hepatitis B Surface Antibody Quantitative 0.0 Hepatitis B Virus Surface Antibody Non-reactive Hepatitis B Virus Surface Antigen Non-reactive Hepatitis C Antibody Non-reactive 01/21/22 US liver The visualized pancreas is normal. The liver is mildly heterogeneous with nodular contour and without discrete lesion. The hepatic and portal veins are patent. The gallbladder is normal size with no stones or wall thickening. There is no evidence of biliary dilatation. The common bile duct measures 3 mm. The right kidney measures 11.3 cm and shows no hydronephrosis. There is splenomegaly at 17.3 cm. There is no free fluid. IMPRESSION: 1. Cirrhotic liver morphology, with no focal lesion observed. 2. Splenomegaly.abnormal Labs and test results were reviewed with the patient Impression: 1. Alcohol related liver disease with cirrhosis given low plts after > 6 month abstinence and AST > ALT, US imaging confirmatory of nodular liver and splenomegaly lab w/u negative for Hep A, B,C, encouraged continued and lifelong abstinence, plan continued US for HCC surveillance q 6 months and discussed EGD surveillance for varices 2. Colon cancer screening due for initial screening reviewed risks and benefits Plan: 1. US soon and then q 6 months, EGD,colonscopy HBV vaccine needed Orders Placed This Encounter Procedures ??? US ABDOMEN LIMITED ??? US ABDOMEN LIMITED ??? CBC WITH DIFFERENTIAL ??? COMPREHENSIVE METABOLIC PANEL 2. An appointment was scheduled for her to see me in followup in 12 months. Pt instructions: Never drink alcohol again Labs with ultrasound in 6 months and 12 months Hepatitis B vaccine sent to pharmacy get at month 0, 1 if not covered call to change to other version Call to schedule EGD and colonoscopy when insurance corrected Total time spent on the encounter during the day of service including review of chart notes, labs, imaging and other tests in [facility], Care Everywhere, face to face encounter, documentation of visit, ordering labs and tests See documentation in [facility], , communication and care coordination was 31 minutes. Dirk Mcdermott MD METRIST OWNER documented in this encounter Plan of Treatment Upcoming Encounters Date Type Department Care Team (Late st Contact Info) Description 01/02/2025 8:45 AM OPTOMETRIST OWNER Appointment [address] [address] 01/02/2025 9:30 AM OPTOMETRIST OWNER Appointment [facility] [address] [place] [address] 01/02/2025 10:00 AM OPTOMETRIST OWNER Office Visit [facility] GI [address] [facility], [place] [address] Dirk Mcdermott MD [facility] [place] [address] documented as of this encounter Goals Goal Patient Goal Type Associated Problems Recent Progress Patient-Stated? Author Reduce fat intake. Diet On track( 11:01 AM OPTOMETRIST OWNER) No Rupali Pratt, RN Note: REDUCED FAT AND REDUCED SODIUM DIET. Safety General On track( 11:01 AM OPTOMETRIST OWNER) Rupali Cruz, RN Note: Expected end date: ONGOING Interventions: Wear glasses/hearing aid Keep personal items within easy reach Use some light at night in your room documented as of this encounter Results * US ABDOMEN LIMITED (12/28/2023 9:42 AM OPTOMETRIST OWNER) Anatomical Region Laterality Modality Abdomen Ultrasound 12/28/2023 9:51 AM OPTOMETRIST OWNER Impressions 12/28/2023 12:10 PM OPTOMETRIST OWNER Impression: 1.Liver Visualization Score A: No or minimal limitations. 2.US-1 Negative. Repeat surveillance US in 6 months. 3.Cirrhotic liver morphology with sequela of portal hypertension including splenomegaly. Report drafted by Jimbo Chopra (resident). > Dictated by Jimbo Chopra (Quantitative Researcher) 12/28/2023 9:51 AM IKaruna MD have personally reviewed and interpreted this examination/study. > Interpreting Provider: Karuna Hernandez MD on 12/28/2023 12:10 PM Narrative 12/28/2023 12:10 PM OPTOMETRIST OWNER PROCEDURE: ??US ABDOMEN LIMITED, DATE/TIME OF EXAM: ??12/28/2023 9:42 AM, LOCATION ??[facility] INDICATION: K70.30: Alcoholic cirrhosis of liver without ascites (CMS-HCC) COMPARISON: Limited abdominal ultrasound dated 06/22/2023 and 01/22/2023 Findings Liver Visualization Score: No or minimal limitations in liver visualization Liver Morphology: The liver has a coarse echotexture and nodular surface. Liver Observations: None. Main Portal Vein: Color Doppler evaluation demonstrates patency of the main portal vein. Hepatic Veins: Color Doppler evaluation demonstrates patency of the hepatic veins. Bile Ducts: The common bile duct is nondilated, measuring 4 mm. No intrahepatic or extrahepatic biliary dilation. Gallbladder: No gallstones or pericholecystic fluid is seen. Sonographic Nagy's sign is negative. Ascites: No ascites is present. Spleen: The spleen measures 14.9 cm in length. Pancreas: The visible pancreas is normal in echogenicity. Right Kidney: The right kidney measures 11.2 cm in length. Limited views of the right kidney reveal no evidence of nephrolithiasis or hydronephrosis. There is a subcentimeter hypoechoic structure within the right upper pole cortex with dependently layering twinkle artifact likely representing a cyst with layering milk of calcium. Procedure Note Mare Hernandez MD - 12/28/2023 PROCEDURE: US ABDOMEN LIMITED, DATE/TIME OF EXAM: 12/28/2023 9:42 AM, LOCATION [facility] INDICATION: K70.30: Alcoholic cirrhosis of liver without ascites (CMS-HCC) COMPARISON: Limited abdominal ultrasound dated 06/22/2023 and 01/22/2023 Findings Liver Visualization Score: No or minimal limitations in liver visualization Liver Morphology: The liver has a coarse echotexture and nodular surface. Liver Observations: None. Main Portal Vein: Color Doppler evaluation demonstrates patency of the main portal vein. Hepatic Veins: Color Doppler evaluation demonstrates patency of the hepatic veins. Bile Ducts: The common bile duct is nondilated, measuring 4 mm. No intrahepatic or extrahepatic biliary dilation. Gallbladder: No gallstones or pericholecystic fluid is seen. Sonographic Nagy'ssign is negative. Ascites: No ascites is present. Spleen: The spleen measures 14.9 cm in length. Pancreas: The visible pancreas is normal in echogenicity. Right Kidney: The right kidney measures 11.2 cm in length. Limited views of the right kidney reveal no evidence of nephrolithiasis or hydronephrosis. There carlos subcentimeter hypoechoic structure within the right upper pole cortexwith dependently layering twinkle artifact likely representing a cyst with layering milk of calcium. Impression: 1.Liver Visualization Score A: No or minimal limitations. 2.US-1 Negative. Repeat surveillance US in 6 months. 3.Cirrhotic liver morphology with sequela of portal hypertensionincluding splenomegaly. Report drafted by iJmbo Chopra (resident). > Dictated by Jimbo Chopra (Quantitative Researcher) 12/28/2023 9:51 AM Karuna Peguero MD have personally reviewed and interpreted this examination/study. > Interpreting Provider: Karuna Hernandez MD on 12/28/2023 12:10 PM Dirk Mcdermott MD US ORDERABLES * US ABDOMEN LIMITED (06/22/2023 9:11 AM CDT) Anatomical Region Laterality Modality Abdomen Ultrasound 06/22/2023 9:07 AM CDT Impressions 06/22/2023 11:27 AM CDT Impression: Liver Visualization Score A: No or minimal limitations. US-1 Negative. Repeat surveillance US in 6 months. Other: 1.Redemonstrated hepatic cirrhosis 2.Splenomegaly 3.Right kidney parenchymal calcification REFERENCE: US LI-RADS categories: US Category: ??US 1 - Negative: No evidence of hepatocellular carcinoma (HCC). ??US 2 - Subthreshold: ??Observation detected that may warrant short-interval US surveillance. ??Observation<10 mm in diameter, not definitely benign. ??US 3 - Positive: ??Observation detected that may warrant multi-phase contrast-enhanced imaging. ??Observation >/= 10 mm in diameter or new thrombus in vein. Visualization Score: ??A. ??No or minimal limitations: ??Limitations, if any, are unlikely to meaningfully affect sensitivity. ??B. ??Moderate limitations: ??Limitations may obscure small masses. ??C. Severe limitations: ??Limitations significantly lower sensitivity for focal liver lesions. Report drafted by Daniele Arce DO (resident). > Dictated by Daniele Arce DO (Quantitative Researcher) 06/22/2023 9:07 AM Tu Peguero MD have personally reviewed and interpreted this examination/study. > Interpreting Provider: Tu Hester MD on 06/22/2023 11:27 AM Narrative 06/22/2023 11:27 AM CDT PROCEDURE: ??US ABDOMEN LIMITED, DATE/TIME OF EXAM: ??06/22/2023 8:29 AM, LOCATION ??[facility] INDICATION: K70.30: Alcoholic cirrhosis of liver without ascites (CMS/HCC) Z12.11: Colon cancer screening ADDITIONAL CLINICAL INFORMATION: Ordering Provider Reason For Exam: ??cirrhosis, HCC screening Technologist Note: Additional: COMPARISON: 01/22/2023. Findings Liver Visualization Score: A Liver Morphology: The liver has a mildly coarse echotexture and nodular surface. Liver Observations: None. Main Portal Vein: Color Doppler evaluation demonstrates patency of the main portal vein. Hepatic Veins: Color Doppler evaluation demonstrates patency of the hepatic veins. Bile Ducts: The common bile duct is nondilated, measuring 4 mm. No intrahepatic or extrahepatic biliary dilation. Gallbladder: No gallstones or pericholecystic fluid is seen.. Sonographic Nagy's sign is negative. Ascites: No ascites is present. Spleen: The spleen is enlarged at 15.2 cm in length. Pancreas: The visible pancreas is normal in echogenicity. Right Kidney: The right kidney measures 10.1 cm in length. There appears to be parenchymal calcification within the upper pole of the right kidney. Limited views of the right kidney reveal no evidence of nephrolithiasis or hydronephrosis. ??No discrete mass identified. Procedure Note Tu Hester MD - 06/22/2023 PROCEDURE: US ABDOMEN LIMITED, DATE/TIME OF EXAM: 06/22/2023 8:29 AM, LOCATION [facility] INDICATION: K70.30: Alcoholic cirrhosis of liver without ascites (CMS/HCC) Z12.11: Colon cancer screening ADDITIONAL CLINICAL INFORMATION: Ordering Provider Reason For Exam: cirrhosis, HCC screening Technologist Note: Additional: COMPARISON: 01/22/2023. Findings Liver Visualization Score: A Liver Morphology: The liver has a mildly coarse echotexture and nodular surface. Liver Observations: None. Main Portal Vein: Color Doppler evaluation demonstrates patency of the main portal vein. Hepatic Veins: Color Doppler evaluation demonstrates patency of the hepatic veins. Bile Ducts: The common bile duct is nondilated, measuring 4 mm. No intrahepatic or extrahepatic biliary dilation. Gallbladder: No gallstones or pericholecystic fluid is seen.. Sonographic Nagy'ssign is negative. Ascites: No ascites is present. Spleen: The spleen is enlarged at 15.2 cm in length. Pancreas: The visible pancreas is normal in echogenicity. Right Kidney: The right kidney measures 10.1 cm in length. There appears to be parenchymal calcification within the upper pole of the right kidney. Limited views of the right kidney reveal no evidence of nephrolithiasisor hydronephrosis. No discrete mass identified. Impression: Liver Visualization Score A: No or minimal limitations. US-1 Negative. Repeat surveillance US in 6 months. Other: 1.Redemonstrated hepatic cirrhosis 2.Splenomegaly 3.Right kidney parenchymal calcification REFERENCE: US LI-RADS categories: US Category: US 1 - Negative: No evidence of hepatocellular carcinoma (HCC). US 2 - Subthreshold: Observation detected that may warrant short-interval US surveillance. Observation<10 mm in diameter, not definitely benign. US 3 - Positive: Observation detected that may warrant multi-phase contrast-enhanced imaging. Observation >/= 10 mm in diameter or new thrombus in vein. Visualization Score: A. No or minimal limitations: Limitations, if any, are unlikely to meaningfully affect sensitivity. B. Moderate limitations: Limitations may obscure small masses. C. Severe limitations: Limitations significantly lower sensitivityfor focal liver lesions. Report drafted by Daniele Arce DO (resident). > Dictated by Daniele Arce DO (Quantitative Researcher) 06/22/2023 9:07 AM ITu MD have personally reviewed and interpreted this examination/study. > Interpreting Provider: Tu Hester MD on 06/22/2023 11:27 AM Dirk Mcdermott MD US ORDERABLES documented in this encounter Visit Diagnoses Diagnosis Alcoholic cirrhosis of liver without ascites (HCC)- Primary Alcoholic cirrhosis of liver Colon cancer screening Special screening for malignant neoplasms, colon Alcoholic cirrhosis of liver without ascites (HCC) Alcoholic cirrhosis of liver Colon cancer screening Special screening for malignant neoplasms, colon Alcoholic cirrhosis of liver without ascites (HCC) Alcoholic cirrhosis of liver documented in this encounter Care Teams Cabin Crew Relationship Specialty Start Date End Date Lee Campbell MD [address] [facility] [place] [address] PCP - General Internal Medicine 04/15/21 Mat Stubbs MD [address] [place] [address] Gastroenterology 04/15/21 documented as of this encounter
--- OUTSIDE RECORDS SUMMARY | 2024-11-26 05:23 | XMS_ITS | Encounter Summary ---
Author Organization [facility] Address [address] [facility] [address] Care Team Providers Care Electric Trucker Name Role Phone Lee Campbell MD Primary Care Provider [phone] Mat Stubbs MD Unavailable [phone] Encounter Details Date Type Department Care Team (Latest Contact Info) Description 07/17/2022 Travel Social History Tobacco Use Types Packs/Day Years Used Date Smoking Tobacco: Never Smokeless Tobacco: Never Sex and Gender Information Value Date Recorded Sex Assigned at Female 12/08/2020 7:15 PM SHAREPOINT APPLICATION DEVELOPER Gender Identity Female 12/08/2020 7:15 PM SHAREPOINT APPLICATION DEVELOPER Sexual Orientation Straight 12/08/2020 7: 15 PM SHAREPOINT APPLICATION DEVELOPER documented as of this encounter Plan of Treatment Upcoming Encounters Date Type Department Care Team (Late st Contact Info) Description 01/02/2025 8:45 AM SHAREPOINT APPLICATION DEVELOPER [facility]oint[facility] [address] [place] [address] 01/02/2025 9:30 AM SHAREPOINT APPLICATION DEVELOPER Appointment [facility] OP [facility] [address] [place] [address] 01/02/2025 10:00 AM SHAREPOINT APPLICATION DEVELOPER Office Visit [facility] - GI [address] [place] [address], [place] [address] Dirk Mcdermott MD [address] [place] [address] [place] [address] documented as of this encounter Goals Goal Patient Goal Type Associated Problems Recent Progress Patient-Stated? Author Reduce fat intake. Diet On track( 024 11:01 AM SHAREPOINT APPLICATION DEVELOPER) No Rupali Pratt, RN Note: REDUCED FAT AND REDUCED SODIUM DIET. Safety General On track( 024 11:01 AM SHAREPOINT APPLICATION DEVELOPER) No Rupali Pratt, RN Note: Expected end date: ONGOING Interventions: Wear glasses/hearing aid Keep personal items within easy reach Use some light at night in your room documented as of this encounter Visit Diagnoses Not on filedocumented in this encounter Care Teams Electric Trucker Relationship Specialty Start Date End Date Lee Campbell MD [address] [place] [address] PCP - General Internal Medicine 04/15/21 Mat Stubbs MD [address] [place] [address] Gastroenterology 04/15/21 documented as of this encounter
--- OUTSIDE RECORDS SUMMARY | 2024-11-26 05:23 | XMS_ITS | Clinical Summary ---
Author Organization [facility] Address [address] [place] [address] Care Team Providers Care Computer Meteorologist Name Role Phone eLe Campbell MD Primary Care Provider [phone] Mat Stubbs MD Unavailable [phone] Source Comments [facility]),non-owned Affiliates and Associated Physician Practices is amultiple site organization consisting of ambulatory clinics and hospital sitesin [place], [place], [place] and [place]. This disclosure is being madepursuant to the Care Everywhere program and may not contain all information available regarding this patient. Last updated 18.[facility] Allergies No known active allergies Medications * Be aware that medications may not be up to date on this document. Alwaysverify current medications with the patient. Medication Sig Dispensed Refills Start Date End Date Status levonorgestrel (MIRENA, 52 MG,) 20 MCG/24HR IUD Mirena 20 mcg/24 hours (6 yrs) 52 mg intrauterine device Take by intrauterine route. Active Multiple Vitamin (MULTIVITAMIN ADULT) TABS Take 1 tablet by mouth Active Hepatitis B Vac Recomb Adj (Heplisav-B) 20 MCG/0.5ML SOLNIndications:He patitis B Inject 0.5 mL into muscle every 30 days Reasons: Hepatitis B 0.5 mL 1 05/19/2023 Active polyethylene glycol 3350 (Miralax) 17 GM/SCOOP powder Mix all of powder with 64oz liquid. Drink 48oz of mixture at 5pm the night before colonoscopy. Finish at 4am the day of test 238 g 07/12/2023 Active ondansetron (Zofran) 4 MG tablet Take 1 (one) tablet by mouth every 6 hours as needed for Nausea/Vomiting 10 tablet 01/04/2024 Active Active Problems Problem Noted Date Diagnosed Date Secondary esophageal varices without bleeding Colon cancer screening 01/08/2023 Alcoholic cirrhosis of liver without ascites 08/2021 Immunizations Name Administration Dates Next Due Covid Makenna primary monoval ent 12+ yr 0.3mL Purple cap 02/09/2021,01/19/2021 Family History Relation Name Status Comments Brother 1 Alive Brother 2 Alive Brother 3 Alive Brother 4 Alive Father Alive Mother Alive Social History Tobacco Use Types Packs/Day Years Used Date Smoking Tobacco: Never Smokeless Tobacco: Never Tobacco Cessation:Counseling Given: Not Answered Alcohol Use Standard Drinks/Week Comments Not Currently 0 (1 standard drink = 0.6 oz pure alcohol) past use 07/11, beer, wine, and hard liquor Sex and Gender Information Value Date Recorded Sex Assigned at Female 12/08/2020 7:15 PM MOTEL FRONT DESK ATTENDANT Gender Identity Female 12/08/2020 7:15 PM MOTEL FRONT DESK ATTENDANT Sexual Orientation Straight 12/08/2020 7: 15 PM MOTEL FRONT DESK ATTENDANT Last Filed Vital Signs Vital Sign Reading Time Taken Comments Blood Pressure 132/84 12/28/2023 10:53 AM MOTEL FRONT DESK ATTENDANT Pulse 61 12/28/2023 10:53 AM MOTEL FRONT DESK ATTENDANT Temperature 36.6 ??C (97.9 ??F) 12/28/2023 10:[address] Respiratory Rate 21 05/17/2023 9:00 AM CDT Oxygen Saturation 100% 12/28/2023 10:53 AM MOTEL FRONT DESK ATTENDANT Inhaled Oxygen Concentration - - Weight 62.1 kg (137 lb) 12/28/2023 10:53 AM MOTEL FRONT DESK ATTENDANT Height 162.6 cm (5' 4 ) 12/28/2023 10:53 AM MOTEL FRONT DESK ATTENDANT Body Mass Index 23.52 12/28/2023 10:53 AM MOTEL FRONT DESK ATTENDANT Plan of Treatment Upcoming Encounters Date Type Department Care Team (Late st Contact Info) Description 01/02/2025 8:45 AM MOTEL FRONT DESK ATTENDANT Appointment [facility] [address] [place] [address] 01/02/2025 9:30 AM MOTEL FRONT DESK ATTENDANT Appointment [facility] [address] [place] [address] 01/02/2025 10:00 AM MOTEL FRONT DESK ATTENDANT Office Visit [facility] - GI [address] [facility] [place] [id number] Dirk Mcdermott MD [address] [place] [address] [place] [address] Health Maintenance Due Date Last Done Comments COLOGUARD (AGES 45-75) - COL ON CA SCREENING 1976 CT COLONOGRAPHY - COLON CA SCREENING 1976 FIT - COLON CA SCREENING 1976 FLEX SIG - COLON CA SCREENING 1976 LIPID TESTING 1976 MAMMOGRAM 1976 PAP SMEAR 1976 PNEUMOCOCCAL VACCINE (1 of 2 - PCV) 1982 HIV SCREENING 1991 DTAP/TDAP/TD VACCINES (1 - Tdap) 1995 HEPATITIS B VACCINE (1 of 3 - 19+ 3-dose series) 1995 COVID-19 VACCINE (3 - 2023-2 5 season) 2024 02/09/2021, 01/19/2021 INFLUENZA VACCINE (#1) 2024 DEPRESSION SCREENING 11/22/2024 ZOSTER VACCINE (1 of 2) 2026 COLON MONITORING 05/17/2033 05/17/2023 COLONOSCOPY - COLON CA SCREENING 05/17/2033 05/17/2023 Colorectal Cancer Screening 05/17/2033 HEPATITIS C SCREENING Completed 02/13/2022 HIB VACCINE Aged Out No longer eligi ble based on patient's age to complete this topic HPV VACCINE Aged Out No longer eligi ble based on patient's age to complete this topic MENINGOCOCCAL VACCINE Aged Out No scot jesus eligible based on patient's age to complete this topic Goals Goal Patient Goal Type Associated Problems Recent Progress Patient-Stated? Author Reduce fat intake. Diet On track( 11:01 AM MOTEL FRONT DESK ATTENDANT) Rupali Cruz RN Note: REDUCED FAT AND REDUCED SODIUM DIET. Safety General On track( 024 11:01 AM MOTEL FRONT DESK ATTENDANT) Rupali Cruz RN Note: Expected end date: ONGOING Interventions: Wear glasses/hearing aid Keep personal items within easy reach Use some light at night in your room Procedures Procedure Name Priority Date/Time Associated Diagnosis Comments ENDOSCOPY, COLON, SCREENING Routine 05/17/2023 7:59 AM CDT HEPATITIS C AB SCREEN RFLX NAAT QUANT Routine 02/13/2022 12:58 PM CDT Alcoholic cirrhosis of liver without ascites (HCC) from Last 3 Months or Most Recently Relevant to Health Maintenance Results * ENDOSCOPY, COLON, SCREENING (05/17/2023 7:59 AM CDT) Report Endoscopy POC Endoscopy Department Report _ Patient Name: Alea Garcia ? Procedure Date: 05/17/2023 7:59 AM ?Date of : 1975 Classification: Outpatient ?Gender: Female Ethnicity: Not or ? Race: White _ Providers: ?Dirk Mcdermott MD Referring : ? manisha Howard (Referring ) Procedure: ?Upper GI endoscopy Indications: ?Cirrhosis with suspected esophageal varices Medications: ?Monitored Anesthesia Care Description of Procedure: Pre-Anesthesia Assessment: ?- Prior to the procedure, a History and Physical ?was performed, and patient medications and ?allergies were reviewed. The patient's tolerance of ?previous anesthesia was also reviewed. The risks ?and benefits of the procedure and the sedation ?options and risks were discussed with the patient. ?All questions were answered, and informed consent ?was obtained. Prior Anticoagulants: The patient has ?taken no anticoagulant or antiplatelet agents. ASA ?Grade Assessment: III - A patient with severe ?systemic disease. After reviewing the risks and ?benefits, the patient was deemed in satisfactory ?condition to undergo the procedure. ?- Prior Aspirin/ NSAID therapy: The patient has ?taken no aspirin or NSAID medications. ?After obtaining informed consent, the endoscope was ?passed under direct vision. Throughout the ?procedure, the patient's blood pressure, pulse, and ?oxygen saturations were monitored continuously. The ?[id number]-[id number] was introduced through the mouth, and ?advanced to the second part of duodenum. The upper ?GI endoscopy was accomplished without difficulty. ?The patient tolerated the procedure well. ? Findings: ? The Z-line was regular and was found 37 cm from the incisors. ? Grade I varices were found in the lower third of the esophagus. They ? were diminutive in size. ? Localized mild inflammation characterized by congestion (edema), ? erosions and erythema was found in the gastric antrum. Biopsies were ? taken with a cold forceps for histology. Verification of patient ? identification for the specimen was done by the nurse using the ? patient's name and date. Estimated blood loss was minimal. ? The cardia and gastric fundus were normal on retroflexion. ? The examined duodenum was normal. ? Estimated Blood Loss: ? Estimated blood loss: none. Complications: ?No immediate complications. Impression: ? - Z-line regular, 37 cm from the incisors. ?- Grade I esophageal varices. ?- Chronic gastritis. Biopsied. ?- Normal examined duodenum. Recommendation: ? - Patient has a contact number available for ?emergencies. The signs and symptoms of potential ?delayed complications were discussed with the ?patient. Return to normal activities tomorrow. ?Written discharge instructions were provided to the ?patient. ?- Resume previous diet. ?- Continue present medications. ?- Await pathology results. ?- Repeat upper endoscopy in 2 years for ?surveillance. ?- Return to liver clinic as previously scheduled. ? Attending Participation: ??I personally performed the entire procedure. ? Procedure Code(s): ? --- Professional --- ? 97788, Esophagogastroduod enoscopy, flexible, transoral; with biopsy, ? single or multiple Diagnosis Code(s): ?--- Professional --- ?K74.60, Unspecified cirrhosis of liver ?I85.10, Secondary esophageal varices without ?bleeding ?K29.50, Unspecified chronic gastritis without ?bleeding CPT copyright 2021 [employer]. All rights reserved. The codes documented in this report are preliminary and upon water treatment plant engineer review may be revised to meet current compliance requirements. Dirk Mcdermott MD 05/17/2023 8:31:34 AM This report has been signed electronically. Note Initiated On: 05/17/2023 7:59 AM Number of Addenda: 0 ? [facility] ? [address] [place] [address] [facility] 05/17/2023 7:59 AM CDT Dirk Mcdermott MD GI PROCEDURE ORDERAB LES Performing Organization Address [place] de Phone Number [facility] * HEPATITIS C AB SCREEN RFLX NAAT QUANT (02/13/2022 12:58 PM CDT) Hepatitis C Antibody Non-react shaylee Non-reac tive 02/13/2022 2:52 PM CDT [facility] Comment:Hepatitis C Antibody screen indicates no serologic evidence of past or current infection with Hepatitis C Virus. Patients with unexplained liver disease who are immunocompromised or suspected of having acute Hepatitis C infection may benefit from Nucleic Acid Test (RUFINO) for Hepatitis C Viral RNA to confirm Hepatitis C status. Blood BLOOD SPECIMEN / Unknown Lab Venipuncture / Unknown 02/13/2022 12:58 PM CDT 02/13/2022 1:58 PM CDT Dirk Mcdermott MD LAB - CHEMISTRY ORDJaiden MARTINEZ Performing Organization Address [place] Co de Phone Number [address] [address], [facility] [phone] from Last 3 Months or Most Recently Relevant to Health Maintenance Care Teams Computer Meteorologist Relationship Specialty Start Date End Date Lee Campbell MD [address] [place] [address] PCP - General Internal Medicine 04/15/21 Mat Stubbs MD [address] [facility] [address] [place] [address] Gastroenterology 04/15/21
--- OUTSIDE RECORDS SUMMARY | 2024-11-26 05:23 | XMS_ITS | Encounter Summary ---
Author Organization [facility] Address [address] [facility] [place] [place] [address] Care Team Providers Care Cat Breeder Name Role Phone Lee Campbell MD Primary Care Provider [phone] Mat Stubbs MD Unavailable [phone] Reason for Referral * Radiology Services (Routine) - Closed Specialty Diagnoses / Procedures Referred By Contac t Referred To Contact Ultrasound Diagnoses Alcoholic cirrhosis of liver without ascites (HCC) Colon cancer screening Procedures US ABDOMEN LIMITED Dirk Mcdermott MD [address] [place] [address] [address] [facility] [place] [address] [facility] [address] [place] [phone] Referral ID Status Reason Start Date Expiration Date Visits Re quested Visits Authorized [id number] Closed 12/23/2024 12/23/2025 1 1 Reason for Visit * Radiology Services (Routine) - Closed Specialty Diagnoses / Procedures Referred By Contac t Referred To Contact Ultrasound Diagnoses Alcoholic cirrhosis of liver without ascites (HCC) Colon cancer screening Procedures US ABDOMEN LIMITED Dirk Mcdermott MD [address] [place] [address] [address] [place] [address] [facility] [address] [place] [address] Referral ID Status Reason Start Date Expiration Date Visits Re quested Visits Authorized [id number] Closed 12/23/2024 12/23/2025 1 1 Encounter Details Date Type Department Care Team (Latest Contact Info) Description 07/04/2024 8:00 AM CDT - 07/04/2024 11:59 PM CDT Hospital Encounter [facility] [address] [place] [address] Dirk Mcdermott MD [address] [place] [address] Discharge Disposition: Home or Self Care Social History Tobacco Use Types Packs/Day Years Used Date Smoking Tobacco: Never Smokeless Tobacco: Never Alcohol Use Standard Drinks/Week Comments Not Currently 0 (1 standard drink = 0.6 oz pure alcohol) past use 07/11, beer, wine, and hard liquor Sex and Gender Information Value Date Recorded Sex Assigned at Female 12/08/2020 7:15 PM PRODUCT DEVELOPMENT CONSULTANT Gender Identity Female 12/08/2020 7:15 PM PRODUCT DEVELOPMENT CONSULTANT Sexual Orientation Straight 12/08/2020 7: 15 PM PRODUCT DEVELOPMENT CONSULTANT documented as of this encounter Medications at Time of Discharge Medication Sig Dispensed Refills Start Date End Date Hepatitis B Vac Recomb Adj (Heplisav-B) 20 MCG/0.5ML SOLNIndications:Hepati tis B Inject 0.5 mL into muscle every 30 days Reasons: Hepatitis B 0.5 mL 1 05/19/2023 levonorgestrel (MIRENA, 52 MG,) 20 MCG/24HR IUD Mirena 20 mcg/24 hours (6 yrs) 52 mg intrauterine device Take by intrauterine route. Multiple Vitamin (MULTIVITAMIN ADULT) TABS Take 1 tablet by mouth ondansetron (Zofran) 4 MG tablet Take 1 (one) tablet by mouth every 6 hours as needed for Nausea/Vomiting 10 tablet 01/04/2024 polyethylene glycol 3350 (Miralax) 17 GM/SCOOP powder Mix all of powder with 64oz liquid. Drink 48oz of mixture at 5pm the night before colonoscopy. Finish at 4am the day of test 238 g 07/12/2023 documented as of this encounter Plan of Treatment Upcoming Encounters Date Type Department Care Team (Late st Contact Info) Description 01/02/2025 8:45 AM PRODUCT DEVELOPMENT CONSULTANT Appointment [facility] [address] [place] [address] 01/02/2025 9:30 AM PRODUCT DEVELOPMENT CONSULTANT Appointment [facility] [address] [place] [address] 01/02/2025 10:00 AM PRODUCT DEVELOPMENT CONSULTANT Office Visit [facility] - GI [address] [facility], [place] [address] Dirk Mcdermott MD [address] [place] [address] [place] [address] documented as of this encounter Goals Goal Patient Goal Type Associated Problems Recent Progress Patient-Stated? Author Reduce fat intake. Diet On track( 11:01 AM PRODUCT DEVELOPMENT CONSULTANT) No Rupali Pratt, RN Note: REDUCED FAT AND REDUCED SODIUM DIET. Safety General On track( 11:01 AM PRODUCT DEVELOPMENT CONSULTANT) Rupali Cruz, RN Note: Expected end date: ONGOING Interventions: Wear glasses/hearing aid Keep personal items within easy reach Use some light at night in your room documented as of this encounter Procedures Procedure Name Priority Date/Time Associated Diagnosis Comments US ABDOMEN LIMITED Routine 07/04/2024 10 :14 AM CDT Alcoholic cirrhosis of liver without ascites (HCC) Colon cancer screening documented in this encounter Results * US ABDOMEN LIMITED (07/04/2024 10:14 AM CDT) Anatomical Region Laterality Modality Abdomen Ultrasound 07/04/2024 10:5 4 AM CDT Impressions 07/04/2024 11:46 PM CDT IMPRESSION: 1.Cirrhotic liver morphology with sequela of portal hypertension including splenomegaly. 2.No cholelithiasis. US LI RADS screening/surveillance Category: US LI-RADS score: US-1 Negative. Routine 6 months surveillance ultrasound examination recommended. Visualization score: A - no or minimal limitation. > Dictated by Romel Guzmán MD, (residential sales). I, E. Alistair Hernandez MD have personally reviewed and interpreted this examination/study. > Interpreting Provider: Karuna Hernandez MD on 07/04/2024 11:46 PM Narrative 07/04/2024 11:46 PM CDT PROCEDURE: ??US ABDOMEN LIMITED, DATE/TIME OF EXAM: ??07/04/2024 10:14 AM, LOCATION ??[facility] INDICATION: K70.30: Alcoholic cirrhosis of liver without ascites (HCC) Z12.11: Colon cancer screening COMPARISON: Limited abdominal ultrasound from 12/28/2023. Technique: Grayscale and color Doppler ultrasound evaluation of the hepatobiliary system was performed. Findings: Liver visualization score: LI-RADS visualization score: A (no or minimal limitation in the liver visualization) Parenchymal morphology: Coarse echotexture with nodular outline, consistent with cirrhosis. Liver observations:None. Main portal vein: Patent with normal directional flow. Varices: No varices seen. ? Ascites: None. Gallbladder: ??Normally distended. No stones or mural thickening. Negative sonographic Nagy sign. Bile ducts: ??Normal caliber. CBD measures 4mm. Spleen: ??Spleen is enlarged. Spleen measures: 16.2 cm. Right kidney: Measures:10.9 cm in length. Right kidney is normal morphology. No focal lesions seen. No hydronephrosis seen. There is a 9 mm cystic structure within the superior pole of the kidney with small areas of internal calcification, likely represents a simple renal cyst with layering milk of calcium which appears unchanged when compared to prior study. Procedure Note Mare Hernandez MD - 07/04/2024 PROCEDURE: US ABDOMEN LIMITED, DATE/TIME OF EXAM: 07/04/2024 10:14 AM, LOCATION [facility] INDICATION: K70.30: Alcoholic cirrhosis of liver without ascites (HCC) Z12.11: Colon cancer screening COMPARISON: Limited abdominal ultrasound from 12/28/2023. Technique: Grayscale and color Doppler ultrasound evaluation of the hepatobiliary system was performed. Findings: Liver visualization score: LI-RADS visualization score: A (no or minimal limitation in the liver visualization) Parenchymal morphology: Coarse echotexture with nodular outline,consistent with cirrhosis. Liver observations:None. Main portal vein: Patent with normal directional flow. Varices: No varices seen. Ascites: None. Gallbladder: Normally distended. No stones or mural thickening.Negative sonographic Nagy sign. Bile ducts: Normal caliber. CBD measures 4mm. Spleen: Spleen is enlarged. Spleen measures: 16.2 cm. Right kidney: Measures:10.9 cm in length. Right kidney is normal morphology. No focal lesions seen. No hydronephrosis seen. There is a 9mm cystic structure within the superior pole of the kidney with small areasof internal calcification, likely represents a simple renal cyst withlayering milk of calcium which appears unchanged when compared to prior study. IMPRESSION: 1.Cirrhotic liver morphology with sequela of portal hypertensionincluding splenomegaly. 2.No cholelithiasis. US LI RADS screening/surveillance Category: US LI-RADS score: US-1 Negative. Routine 6 months surveillance ultrasound examination recommended. Visualization score: A - no or minimal limitation. > Dictated by Romel Guzmán MD, (residential sales). IKaruna MD have personally reviewed and interpreted this examination/study. > Interpreting Provider: Karuna Hernandez MD on 07/04/2024 11:46 PM Dirk Mcdermott MD US ORDERABLES documented in this encounter Visit Diagnoses Diagnosis Alcoholic cirrhosis of liver without ascites (HCC) Alcoholic cirrhosis of liver Colon cancer screening Special screening for malignant neoplasms, colon documented in this encounter Care Teams Cat Breeder Relationship Specialty Start Date End Date Lee Campbell MD [address] [facility] [place] [address] PCP - General Internal Medicine 04/15/21 Mat Stubbs MD [address] [place] [address] Gastroenterology 04/15/21 documented as of this encounter
--- OUTSIDE RECORDS SUMMARY | 2024-11-26 05:23 | XMS_ITS | Encounter Summary ---
Author Organization [facility] Address [address] [place] [address] Care Team Providers Care Geological Technical Officer Name Role Phone Lee Campbell MD Primary Care Provider [phone] Mat Stubbs MD Unavailable [phone] Reason for Visit * Auth/Cert (Routine) Specialty Diagnoses / Procedures Referred By Contanders t Referred To Contact Diagnoses Alcoholic cirrhosis of liver without ascites (HCC) Screen for colon cancer Procedures ESOPHAGOGASTRODUODENOSCOPY (EGD) DIAGNOSTIC COLONOSCOPY SCREEN Referral ID Status Reason Start Date Expiration Date Visits Re quested Visits Authorized [id number] 1 1 Encounter Details Date Type Department Care Team (Late st Contact Info) Description 05/17/2023 8:00 AM CDT - 05/17/2023 9:00 AM CDT Surgery [facility] ENDOSCOPY [address] [place] [id number] Dirk Mcdermott MD [address] [place] [address] [place] [address] EGD w/ Sharron Surgery Details Date/Time Status Location OR Service Patient Class Case Class Case Type Trauma Case? 05/17/2023 8:00 AM Posted [facility] Endoscopy ENDO 4 Gastroenterology Surgery Day Care Elective > 5 days Panel 1 Procedure LRB Anes Op Region Wound Class Comments EGD w/ Sharron N/A MAC Esophagus Clean Contamina ezekiel Small varices , gastritis, gastric erosions A. Gastric bx to r/o H.pylori- Strandard bx Surgeon Surgeon Role Service Panel Dirk Mcdermott MD Primary Gastroenterology 1 Special Needs EGD and colonoscopy Received: Today Call patient Yuliet Wallis, RN P [facility] Schedulers - Endoscopy Pool Helteressa Ladies: Please schedule an egd and colonoscopy for pt with Dr. Mcdermott in April. ??Expecting insurance change. ?? Thanks, Yuliet ?? Received Date Received Time Jan 08, 2023 10:50 AM documented in this encounter Social History Tobacco Use Types Packs/Day Years Used Date Smoking Tobacco: Never Smokeless Tobacco: Never Alcohol Use Standard Drinks/Week Comments Not Currently 0 (1 standard drink = 0.6 oz pure alcohol) past use 07/11, beer, wine, and hard liquor Sex and Gender Information Value Date Recorded Sex Assigned at Female 12/08/2020 7:15 PM GRADES 1 THROUGH 5 TEACHER Gender Identity Female 12/08/2020 7:15 PM GRADES 1 THROUGH 5 TEACHER Sexual Orientation Straight 12/08/2020 7: 15 PM GRADES 1 THROUGH 5 TEACHER COVID-19 Exposure Response Date Recorded In the last 10 days, have yo u been in contact with someone who was confirmed or suspected to have Coronavirus/COVID-19? No / Unsure 05/17/2023 7:00 AM CDT documented as of this encounter Last Filed Vital Signs Vital Sign Reading Time Taken Comments Blood Pressure 108/82 05/17/2023 9:00 AM CDT Pulse 60 05/17/2023 9:00 AM CDT Temperature 36.8 ??C (98.2 ??F) 05/17/2023 8:28 AM CD T Respiratory Rate 21 05/17/2023 9:00 AM CDT Oxygen Saturation 98% 05/17/2023 9:00 AM CDT Inhaled Oxygen Concentration - - Weight 58 kg (127 lb 12.8 oz) 05/17/2023 7:11 AM CDT Height 162.6 cm (5' 4 ) 05/17/2023 7:11 AM CDT Body Mass Index 21.94 05/17/2023 7:11 AM CDT documented in this encounter Medications at Time of Discharge [...] ADULT) TABS Take 1 tablet by mouth polyethylene glycol (Golytely) 236 g solution Drink prep solution at 5pm the night before your colonoscopy 4000 mL 05/19/2023 07/12/2023 documented as of this encounter H&P Notes * Dirk Mcdermott MD - 05/17/2023 7:49 AM CDT PRE-PROCEDURE HISTORY & PHYSICAL NOTE (Presedation assessment per Anesthesia Team) 05/17/2023 7:49 AM Patient: Alea Garcia, date of 1975 Procedure(s) planned: EGD colonoscopy Indication(s): cirrhosis screeening for colon cancer History: Patient Active Problem List: Alcoholic cirrhosis of liver without ascites (CMS/HCC) Colon cancer screening Past Medical History: Diagnosis Date ??? Broken arm Past Surgical History: Procedure Laterality Date ??? Section ??? Tonsillectomy and Adenoidectomy No Known Allergies No current facility-administered medications for this encounter. Social History: no tobacco Family History: no colon cancer Review of systems: Chest pain: No. Shortness of breath: No. Review of systems otherwise negative. Physical Exam: BP 127/82 Pulse 78 Temp 98.1 ??F (36.7 ??C) (Oral) Resp 10 Ht 1.626 m (5' 4 ) Wt 58 kg (127 lb 12.8 oz) SpO2 100% GENERAL: The patient is alert, oriented and in no apparent distress. HEENT: Neck supple, posterior pharynx is clear. LUNGS: Lungs are clear to auscultation. CVS: Heart sounds are normal, no murmurs. ABDOMEN: Soft, no tenderness, masses or organomegaly. EXTREMITIES: Normal. NEURO: Non-focal. Pain assessment: None. Sedation Plan: Monitored Anesthesia Care (MAC) by the anesthesia team. Procedure Plan: Based on the above assessment, we will perform the procedures indicated above. I have discussed the plan, risks, benefits and alternatives with the patient or guardian. When assessment above was not obtained immediately before the procedure, I have reassessed this patient and there are no changes. Dirk Mcdermott MD documented in this encounter Plan of Treatment Upcoming Encounters Date Type Department Care Team (Late st Contact Info) Description 01/02/2025 8:45 AM GRADES 1 THROUGH 5 TEACHER Appointment [facility] [address] [place] [address] 01/02/2025 9:30 AM GRADES 1 THROUGH 5 TEACHER Appointment [facility] OP DRAW STATION [address] [place] [address] 01/02/2025 10:00 AM GRADES 1 THROUGH 5 TEACHER Office Visit [facility] - GI [address] [facility] [place] [phone] Dirk Mcdermott MD [address] [place] [address] [address] [place] [address] documented as of this encounter Goals Goal Patient Goal Type Associated Problems Recent Progress Patient-Stated? Author Reduce fat intake. Diet On track( 024 11:01 AM GRADES 1 THROUGH 5 TEACHER) No Rupali Pratt RN Note: REDUCED FAT AND REDUCED SODIUM DIET. Safety General On track( 024 11:01 AM GRADES 1 THROUGH 5 TEACHER) Rupali Cruz, RENATA Note: Expected end date: ONGOING Interventions: Wear glasses/hearing aid Keep personal items within easy reach Use some light at night in your room documented as of this encounter Procedures Procedure Name Priority Date/Time Associated Diagnosis Comments PATHOLOGY TISSUE Routine 05/17/2023 8:15 AM CDT Alcoholic cirrhosis of liver without ascites (HCC) Screen for colon cancer [facility] EGD FLEX TRANSORAL DX 05/17/2023 8:11 AM CDT Alcoholic cirrhosis of liver without ascites (HCC) Screen for colon cancer Special Needs EGD and colonoscopy Received: Today Call patient Yuliet Wallis, RN P [facility] Schedulers - Endoscopy Pool Hello Ladies: Please schedule an egd and colonoscopy for pt with Dr. Mcdermott in April. ??Expecting insurance change. ?? Thanks, Yuliet ?? Received Date Received Time Jan 08, 2023 10:50 AM ENDOSCOPY, COLON, SCREENING Routine 05/17/2023 7:59 AM CDT HCG URINE QUALITATIVE - POCT (IP) INTERFACED Routine 05/17/2023 7:27 AM CDT HCG URINE QUAL POCT NOTIFICATION STAT 05/17/2023 6:00 AM CDT Preop examination documented in this encounter Results * PATHOLOGY TISSUE (05/17/2023 8:15 AM CDT) Case Report Surgical Pathology Report ? Case: [id number] ? Authorizing Provider: ??Dirk Mcdermott MD ?Collected: ? 05/17/2023 08:15 AM ? Ordering Location: ? [facility] ?Received: ?05/17/2023 10:34 AM ? Pathologist: ? Kasie Frye MD ? Specimen: ?Gastric, ??Gastric bx to r/o H.pylori ? 05/19/2023 5:52 PM CDT [facility] Final Diagnosis Stomach, biopsy (A): - Antral and oxyntic mucosa, no histopathologic abnormality - No active inflammation or intestinal metaplasia - Negative for Helicobacter pylori on the Helicobacter pylori immunohistochemical stain 05/19/2023 5:52 PM [facility] Microscopic Description and Comment Microscopic examination substantiates the final diagnosis. The Helicobacter pylori immunostain controls stained appropriately. 05/19/2023 5:52 PM [facility] Clinical History The patient is a 48-year-old woman with cirrhosis with suspected esophageal varices. Operative procedure/findings: Upper GI endoscopy - Chronic gastritis, biopsied. 05/19/2023 5:52 PM [facility] Gross Description The requisition and specimen(s) are identified with the patient's name Alea Garcia. Received in formalin, specimen A , are 5 ramsay-red soft tissues ranging from 0.2 to 0.4 cm which are submitted in toto in A1. /ml 05/19/2023 5:52 PM [facility] Pathologist Location at [facility] 05/19/2023 5:52 PM [facility] Disclaimer The performance characteristics of all immunohistochemical and indirect immunofluorescence stains (if any) cited in this report were determined by the Histopathology Laboratory of [facility]. Some of these tests were developed by our own laboratory and have not been cleared or approved by the US Food and Drug Administration. The FDA does not require this test to go through premarket FDA review. These tests are used for clinical purposes. They should not be regarded as investigational or for research. This laboratory is certified under the Clinical Laboratory Improvement Amendments (CLIA) as qualified to perform high complexity clinical laboratory testing. This case has been personally reviewed and interpreted by the attending (teaching) pathologist. 05/19/2023 5:52 PM [facility] Embedded Images 05/19/2023 5:52 PM [facility] Biopsy, NOS GASTRIC CONTENTS SPECIMEN / Unknown 05/17/2023 8:15 AM CDT 05/17/2023 10:34 AM CDT Dirk Mcdermott MD LAB - PATHOLOGY/CYTO LOGY ORDERABLES [facility] [address] [place] [address], [facility] [phone] * ENDOSCOPY, COLON, SCREENING (05/17/2023 7:59 AM [...] Procedure Code(s): ? --- Professional --- ? 91525, Esophagogastroduod enoscopy, flexible, transoral; with biopsy, ? single or multiple Diagnosis Code(s): ?--- Professional --- ?K74.60, Unspecified cirrhosis of liver ?I85.10, Secondary esophageal varices without ?bleeding ?K29.50, Unspecified chronic gastritis without ?bleeding CPT copyright 202 [employer]. All rights reserved. The codes documented in this report are preliminary and upon cattle dealer review may be revised to meet current compliance requirements. Dirk Mcdermott MD 05/17/2023 8:31:34 AM This report has been signed electronically. Note Initiated On: 05/17/2023 7:59 AM Number of Addenda: 0 ? [facility] ? [address] [place] [address] [facility] 05/17/2023 7:59 AM CDT Dirk Mcdermott MD GI PROCEDURE ORDERAB LES Performing Organization Address City/[facility]/ZIP Co de Phone Number [facility] * HCG URINE QUALITATIVE - POCT (IP) INTERFACED (05/17/2023 7:27 AM CDT) HCG Qual Urine Negative Negative 05/17/2023 7:39 AM CDT [facility] Urine URINE / Unknown 05/17/2023 7 :27 AM CDT 05/17/2023 7:39 AM CDT Dirk Mcdermott MD LAB - POINT OF CARE ORDERABLES Performing Organization Address [facility] Co de Phone Number [address] [address], [place] [phone] * HCG URINE QUAL POCT NOTIFICATION (05/17/2023 6:00 AM CDT) Comment Notification Label Only - See Separate Report 05/17/2023 7:30 AM CDT [facility] Urine URINE / Unknown 05/17/2023 6 :00 AM CDT 05/17/2023 6:00 AM CDT Dirk Mcdermott MD LAB - URINALYSIS ORD ERABLES Performing Organization Address [facility] Co de Phone Number [address] [address], [place] [phone] documented in this encounter Visit Diagnoses Diagnosis Preop examination- Primary Preoperative examination, unspecified Alcoholic cirrhosis of liver without ascites (HCC) Alcoholic cirrhosis of liver Screen for colon cancer Special screening for malignant neoplasms, colon Alcoholic cirrhosis of liver without ascites (HCC) Alcoholic cirrhosis of liver Screen for colon cancer Special screening for malignant neoplasms, colon documented in this encounter Administered Medications Inactive Administered Medications - up to 3 most recent administrations Medication Order MAR Action Action Date Dose Rate Site 0.9% NaCl injection 3 mL 3 mL, Intracatheter, PRE-PROCEDURE MULTIPLE, Starting on Wed05/17/23 at 0802, Until Wed05/17/23 at 1013, For Saline Lock flushes if one is inserted for Bronchoscopy/Endoscopy procedure., Pre-procedure (GI) documented in this encounter Active and Recently Administered Medications Times are shown in CDT. Scheduled Medication Order 05/15/2023 05/16/2023 05/17/2023 0.9% NaCl injection 3 mL 3 mL, Intracatheter, PRE-PROCEDURE MULTIPLE, Starting on Wed05/17/23 at 0802, Until Wed05/17/23 at 1013, For Saline Lock flushes if one is inserted for Bronchoscopy/Endoscopy procedure., Pre-procedure (GI) documented in this encounter Care Teams Geological Technical Officer Relationship Specialty Start Date End Date Lee Campbell MD [address] [facility] [place] [address] PCP - General Internal Medicine 04/15/21 Mat Stubbs MD [address] [facility] [address] [place] [address] Gastroenterology 04/15/21 documented as of this encounter
--- OUTSIDE RECORDS SUMMARY | 2024-11-26 05:23 | XMS_ITS | Data Portability ---
Author Organization [facility] [place] Address [address] [place] [address] Assessment Encounter Date Assessment Date Assessment LastModified by Organization Details LastModified Time 08/12/2020 08/12/2020 Annual gynecological exam performed. Patient will come back in a year unless there are new symptoms. [email or web address] Not available 08/12/2020 15:15:20 Plan of Treatment Reminders Order Date Submit Date Provider Last Modified By Organization Details Last Modified Time Details Appointments None record ed. Lab None record ed. Referral None record ed. Procedures None record ed. Surgeries None record ed. Imaging None record ed. Medication Orders None record ed. Patient TargetsNo targets recorded. Patient Instructions Encounter Date Encounter Id Patient Instructions Last Modified By Organization Details Last Modified Time 08/12/2020 [email or web address] Not available 15:40:05 Reason for Referral None Reported. Results Created Date Observation Date Name Description Value Unit Range Abnormal Flag Note LastModifiedBy Organization Detail LastModifiedTime 08/12/20 20 08/14/2020 pap, LB Pap test thin prep Negati ve for Intrae pithel ial Lesion or Malign luke normal ACCES VAN #: [id number] Sourc e: Cervi ninfa/E ndoce rvica l LMP: 04/10 Date Taken : 08/12 Speci men Type: ThinP rep Vial Date Repor samuel: 2019 Clini ninfa Data: Cytot ech: Sangita Luong Ackle y, CT( CP) Date Repor samuel: 2019 Speci men Adequ acy: Satis facto ry for evalu ation No endoc ervic al/tr ansfo rmati on zone compo nent prese nt Gener al Categ oriza tion: NEGAT MARQUISE FOR INTRA EPITH ELIAL ADRIENNE Ceja OR TERRY KELSEY This speci men has been jose zed by the ThinP rep Imagi ng Ruben m, an inter activ e compu ter ruben m which denise ts the lab in the jose duque of ThinP rep Pap Test slide sItz cardozo imagi ng, the slide was revie wed by a Cytot echno logis t and/o r Patho logis t. D N A A S S A Y S R E P O R T TEST NAME RESUL TS ----- ---- ----- -- HPV High Risk Jose ceja (TMA) ThinP rep Vial The human papil lomav irus (HPV) High Risk Jose ceja is an FDA-a pprov ed in-vi tro ampli fied nucle ic acid test for the quali tativ e detec tion of E6/E7 viral mRNA. Resul ts halle d be corre lated with patie nt prese ntati on, histo ry, cervi ninfa cytol ogy and other clini ninfa and labor atory findi ngs. See https ://entegra technologies/s ites/ defau lt/fi les/2 018-0 3/AW- 20441 _002_ 01.pd f for mara callaway willgracie ceja. Test perfo rmed by [facility], [address], [place] [address] , Aminta Zepeda ra, DO, [facility]. HPV High Risk *HPV NOT DETEC SAMUEL (TYPE S 16, 18, 31, 33, 35, 39, 45, 51, 52, 56, 58, 59, 66, 68) *HPV: The human papil lomav irus (HPV) High Risk Jose ceja is an FDA-a pprov ed in-vi tro ampli fied nucle ic acid test for the quali tativ e detec tion of E6/E7 viral mRNA. Resul ts halle d be corre lated with patie nt prese ntati on, histo ry, cervi ninfa cytol ogy and other clini ninfa and labor atory findi ngs. See https ://ww wTemporal Power. Seaters/s ites/ defrogerio lt/fi les/2 018-0 3/AW- 79949 _002_ 01.pd f for mara swain itzelr amairani marcial. Test perfo [facility]med by [facility], d/b/a [facility], [address], [place] [address] , Aminta Zepeda ra, DO, [facility] atory Dire tor. End of Repor t Techn ical servi [place] provi ded by [facility], d/b/a [facility], [address] [place] [address] Andres Palma MD, [facility]. Case revie wed and diagn osis rende red at [facility] [employer] [facility] [place], d/b/a [facility], [address] [place] [address] Andres Palma MD, [facility]. CONFI DENTI AL Not Available [facility] ([facility]) [address] [place] [address], [place], [address], 08/14/2020 09:34:56 08/12/20 20 08/13/2020 HPV DNA, high- risk HPV high risk NOT DETECT ED normal Not Available [facility] ([facility]) [address] [place] [address], [place], [address], 08/14/2020 09:34:56 11/07/20 20 MAMMO , scree dunia, bilat eral No observ ation record ed. JOHNNIE Not Available 2019 10:22:06 Result Notes None recorded. Procedures Surgical History None recorded. Imaging Results Imaging Date Name Status LastModified by Organiz ation Details LastModified Time 11/07/2020 MAMMO, screening, bilateral completed JOHNNIE Information not available 11/14/2020 10:22:06 Procedure Notes None recorded. Medical Equipment None Reported. Allergies No known drug allergies Medications Name Sig Start Date Stop Date Status Note LastModified by Organization Details LastModified Time Mirena 21 mcg/24 hr (up to 8 years) 52 mg intrauterine device Take by intrauterin e route. active Not Available Not Available No t Available prednisone 20 mg tablet TK 1 T PO BID FOR 5 DAYS active Not Available Not Available No t Available prednisone 5 mg tablet TK 4 TS PO D FOR 7 DAYS THEN TK 3 TS PO D FOR 7 DAYS active Not Available Not Available No t Available folic acid 1 mg tablet TK 1 T PO D active Not Available Not Availabl e Not Available doxycycline hyclate 100 mg tablet TK 1 T PO QD WITH A MEAL active Not Available Not Available No t Available nitrofuranto in monohydrate/ macrocrystal s 100 mg capsule TK 1 C PO Q 12 H FOR 3 DAYS active Not Available Not Available No t Available Vitamin B-1 (mononitrate ) 100 mg tablet TK ONE T PO QAM active Not Available Not Available No t Available metronidazol e 1 % topical gel with pump APPLY TOPICALLY QD TO FACE active Not Available Not Available N ot Available Vitals Date Recorded Body height Body mass index (BMI) Body weight Systolic blood pressure Diastolic blood pressure Provider Name and Address Organization Details Last Updated DateTime 08/12/2020 162.56 cm 23.5 kg/m2 47937.15 g 134 mm[Hg] 75 mm[Hg] Ashia Martin [facility] 0 15:22:25 Social History None recorded. Functional Status None recorded. Mental Status None recorded. Family History Relationship Description Onset Age of this Age Resolved Age Notes LastModified by Organization Details LastModified Time Mother Asthma [email or web address] Not available 15:16:24 Maternal Grandmother Carcinoma in situ of breast [email or web address] Not available 2019 15:16:35 Medical History Condition Response Allergies (Food, seasonal, environmental ) N Other N Breast Cancer N Drug/Latex Allergies/Reactions N Blood Transfusion N Dermatologic Disorders N Lung Disease N Defects or Inherited Disease N Breast Problem N Gestational Diabetes N Hematologic disorders N Anesthesia Complications N History of STI N Deep Vein Thrombosis N Polycystic ovary syndrome N Anxiety Disorder N Autoimmune disease N Arthritis N Infertility N Polyps N Acid Reflux (GERD) N History of abnormal pap N Cancer N Stroke N Varicosities N Neurologic/Epilepsy N Endometriosis N High Cholesterol N Headaches N Fibromyalgia N Kidney Disease N Heart Problems N Kidney or Bladder Problems N Thyroid Problems N GI Problems N Eating Disorder N Anemia N Art (IVF or FET) N Psychiatric Illness N Ovarian Cancer N Diabetes N Pulmonary (TB, Asthma) N Hepatitis/Liver Disease N Eczema N Urinary Tract Infection N Abuse/Domestic Violence N Asthma N Trauma/Violence N Depression/ depression N Heart Disease N Pre-Eclampsia N Hypertension N Osteoporosis N Thrombophilias N Gynecological History Statement/Question Response Current Control Method IUD Obstetrics History GPAL:G 0 P 0 0 0 0 Past Encounters Encounter ID Performer Location Encounter Start Date Encounter Closed Date Diagnosis/Indication Diagnosis SNOMED-CT Code Diagnosis ICD10 Code Diagnosis Note Janice Arnett , [facility] [address] [address] 08/12/2020 14:55:31 08/12/2020 15:53:38 Gynecologic examination 06344161 Z01.419 Suggested Calcium with Vitamin D 1200-1500m g daily. Patient advised to get an annual flu shot in the fall and she could obtain at [facility] or [facility] care clinic. Also to obtain TDap vaccinatio n if you have not had one in the last 10 years. Recommend yearly mammograms . Encouraged monthly self breast exams. Encourage safe sexual practices, to use condoms and limit partners if not already in a monogamous relationsh ip. Engage in daily exercise of low impact aerobic exercise 45-60 minutes 4-5 times weekly. Avoid tobacco and illicit drugs as well as using moderation with alcohol intake less than 1-2 8 oz beverages daily. This lifestyle behavior pattern will lead to less health conditions and longer life span. If BMI greater than 25 weight watchers or dietary consult advised. All questions have been answered. Patient appears to understand informatio n, but if you have any questions please call or respond to this email. Request records from previous ELECTRICAL ASSISTANT IUD placed almost 10yrs ago-Mirena . Wants another IUD. No MOUNTER CLARINETS issues or concerns. Health Concerns Section Related Observation LastModified by Organization Detai ls LastModified Time None Recorded Concern Status LastModified by Organization Details LastModified Time None Recorded Advance Directives Directive None Recorded Payers Encounter Date Sequence Insurance Name Policy Number Policy Lazaro Covered Member ID Lazaro Member ID Guarantor Name 08/12/2020 1 [facility] (MEDICAID HMO) Alea Garcia [id number] Alea Garcia Notes Date Note Type Note Provider Name and Address Organization Details Recorded Time 08/12/2020 text/html Annual GYNReport ed bypatient.History: no gynecologic complaints Menstrual cycle:Normal menses Urinary symptoms:No hematuria; No incontinence Vulva:No genital lesion Vagina:Normal vaginal discharge Breast:No breast pain; No breast lump; No nipple discharge Current Contraception:Sati sfied with current contraception; Monogamous relationship; Intrauterine device (iud); Device placed Dr. Galindo's office almost 10yrs ago. She doesn't have regular cycles on this device. Sexual complaints:No sexual complaints; No pain during intercourse; Normal libido Menopausal Symptoms:No menopausal symptoms; Normal vaginal lubrication Psychological symptoms:No depression; No anxiety; No PMDD Preventive measures:Encourage self breast examination; Encourage regular exercise; Encourage no tobacco use; Encourage regular mammograms starting age 40; Needs to schedule mammogram Janice Arnett, [facility]- [address], [place], [address], [facility] 08/12/2020 15:41:31 OBGyn Episode Ob Episode Information Episode Created Date Number of Fetuses Patient Bloodtype Patient rh Status Prepregnancy Weight lbs Domestic Partner Domestic Partner Phone Father Name Customer Service Officer Status 08/12/20 20 1 CLOSED Fetus Data First Name Last Name Admitted to NICU Weight (g) Sex Living Outcome Pediatric Complications Fetus ID Race Codes Race Delivery Type [id number] Primary Stan Calculation Initial Stan Date Initial Exam Date Initial Exam Provider Initial Ultrasound Date Last Menstrual Period Date Ultra Sound Weeks Gestation 0 Eighteen To Twenty Week Stan Update Ultra Sound Date Fundal Height At Umbil Quickening Date Ultra Sound Latest Weeks Gestation Final Stan Confirmed By Final Stan Confirmed Date Final Stan Date Ultra Sound Latest Days Gestation 0 0 Menstrual History Last Menstrual Date Menses Monthly On Bcp Conception Prior Menses Frequency Hcg Plus Date Menarche Onset Age Delivery Information Delivery Date Delivery Type Labor Anesthesia Weeks Gestation Incision Type Labor Labor Length Hrs Delivered By Post Complications Tubal Sterilization Discharge Date Comments 5 Discharge Information Feeding Method Contraceptive Method Maternal HG B and HCT Levels Ob Episode Information Episode Created Date Number of Fetuses Patient Bloodtype Patient rh Status Prepregnancy Weight lbs Domestic Partner Domestic Partner Phone Father Name Customer Service Officer Status 08/12/20 20 1 CLOSED Fetus Data First Name Last Name Admitted to NICU Weight (g) Sex Living Outcome Pediatric Complications Fetus ID Race Codes Race Delivery Type [id number] Primary Stan Calculation Initial Stan Date Initial Exam Date Initial Exam Provider Initial Ultrasound Date Last Menstrual Period Date Ultra Sound Weeks Gestation 0 Eighteen To Twenty Week Stan Update Ultra Sound Date Fundal Height At Umbil Quickening Date Ultra Sound Latest Weeks Gestation Final Stan Confirmed By Final Stan Confirmed Date Final Stan Date Ultra Sound Latest Days Gestation 0 0 Menstrual History Last Menstrual Date Menses Monthly On Bcp Conception Prior Menses Frequency Hcg Plus Date Menarche Onset Age Delivery Information Delivery Date Delivery Type Labor Anesthesia Weeks Gestation Incision Type Labor Labor Length Hrs Delivered By Post Complications Tubal Sterilization Discharge Date Comments 0 Discharge Information Feeding Method Contraceptive Method Maternal HG B and HCT Levels
--- OUTSIDE RECORDS SUMMARY | 2024-11-26 05:23 | XMS_ITS | Encounter Summary ---
Author Organization [facility] Address [address] [place] [address] Care Team Providers Care Private Tutors And Teachers Name Role Phone Lee Campbell MD Primary Care Provider [phone] Mat Stubbs MD Unavailable [phone] Reason for Referral * Radiology Services (Routine) - Closed Specialty Diagnoses / Procedures Referred By Contac t Referred To Contact Ultrasound Diagnoses Alcoholic cirrhosis of liver without ascites (HCC) Procedures US ABDOMEN LIMITED Dirk Mcdermott MD [address] [place] [address] [address] Referral ID Status Reason Start Date Expiration Date Visits Re quested Visits Authorized [id number] Closed 01/08/2023 01/08/2024 1 1 MOTIVE ELECTRICAL FITTER Reason for Visit * Radiology Services (Routine) - Closed Specialty Diagnoses / Procedures Referred By Contac t Referred To Contact Ultrasound Diagnoses Alcoholic cirrhosis of liver without ascites (HCC) Procedures US ABDOMEN LIMITED Dirk Mcdermott MD [address] [place] [address] [address] [place] [address] [address] Referral ID Status Reason Start Date Expiration Date Visits Re quested Visits Authorized [id number] Closed 01/08/2023 01/08/2024 1 1 Encounter Details Date Type Department Care Team (Latest Contact Info) Description 12/28/2023 8:45 AM AUTOMOTIVE ELECTRICAL FITTER - 12/28/2023 11:59 PM AUTOMOTIVE ELECTRICAL FITTER Hospital Encounter [facility] [address] [place] [address] Dirk Mcdermott MD [address] [facility] [address] [facility] [place] [address] Discharge Disposition: Home or Self Care Social History Tobacco Use Types Packs/Day Years Used Date Smoking Tobacco: Never Smokeless Tobacco: Never Alcohol Use Standard Drinks/Week Comments Not Currently 0 (1 standard drink = 0.6 oz pure alcohol) past use 07/11, beer, wine, and hard liquor Sex and Gender Information Value Date Recorded Sex Assigned at Female 12/08/2020 7:15 PM AUTOMOTIVE ELECTRICAL FITTER Gender Identity Female 12/08/2020 7:15 PM AUTOMOTIVE ELECTRICAL FITTER Sexual Orientation Straight 12/08/2020 7: 15 PM AUTOMOTIVE ELECTRICAL FITTER documented as of this encounter Medications at Time of Discharge Medication Sig Dispensed Refills Start Date End Date Hepatitis B Vac Recomb Adj (Heplisav-B) 20 MCG/0.5ML SOLNIndications:Hepat itis B Inject 0.5 mL into muscle every 30 days Reasons: Hepatitis B 0.5 mL 1 05/19/2023 levonorgestrel (MIRENA, 52 MG,) 20 MCG/24HR IUD Mirena 20 mcg/24 hours (6 yrs) 52 mg intrauterine device Take by intrauterine route. Multiple Vitamin (MULTIVITAMIN ADULT) TABS Take 1 tablet by mouth polyethylene glycol 3350 (Miralax) 17 GM/SCOOP powder Mix all of powder with 64oz liquid. Drink 48oz of mixture at 5pm the night before colonoscopy. Finish at 4am the day of test 238 g 07/12/2023 ondansetron (Zofran) 4 MG tablet Take 1 (one) tablet by mouth every 6 hours as needed for Nausea/Vomiting 10 tablet 07/12/2023 01/01/2024 documented as of this encounter Plan of Treatment Upcoming Encounters Date Type Department Care Team (Late st Contact Info) Description 01/02/2025 8:45 AM AUTOMOTIVE ELECTRICAL FITTER Appointment [facility] [address] [place] [address] 01/02/2025 9:30 AM AUTOMOTIVE ELECTRICAL FITTER Appointment [facility] OP DRAW STATION [address] [place] [address] 01/02/2025 10:00 AM AUTOMOTIVE ELECTRICAL FITTER Office Visit [facility] [address] [facility], [place] [address] Dirk Mcdermott MD [address] [place] [address] [place] [address] documented as of this encounter Goals Goal Patient Goal Type Associated Problems Recent Progress Patient-Stated? Author Reduce fat intake. Diet On track( 11:01 AM AUTOMOTIVE ELECTRICAL FITTER) No Rupali Pratt, RN Note: REDUCED FAT AND REDUCED SODIUM DIET. Safety General On track( 11:01 AM AUTOMOTIVE ELECTRICAL FITTER) No Rupali Pratt, RN Note: Expected end date: ONGOING Interventions: Wear glasses/hearing aid Keep personal items within easy reach Use some light at night in your room documented as of this encounter Procedures Procedure Name Priority Date/Time Associated Diagnosis Comments US ABDOMEN LIMITED Routine 12/28/2023 9: 42 AM AUTOMOTIVE ELECTRICAL FITTER Alcoholic cirrhosis of liver without ascites (HCC) documented in this encounter Results * US ABDOMEN LIMITED (12/28/2023 9:42 AM AUTOMOTIVE ELECTRICAL FITTER) Anatomical Region Laterality Modality Abdomen Ultrasound 12/28/2023 9:51 AM AUTOMOTIVE ELECTRICAL FITTER Impressions 12/28/2023 12:10 PM AUTOMOTIVE ELECTRICAL FITTER Impression: 1.Liver Visualization Score A: No or minimal limitations. 2.US-1 Negative. Repeat surveillance US in 6 months. 3.Cirrhotic liver morphology with sequela of portal hypertension including splenomegaly. Report drafted by Jimbo Chopra (resident). > Dictated by Jimbo Chopra (Natural Gas Shothole Driller) 12/28/2023 9:51 AM Karuna Peguero MD have personally reviewed and interpreted this examination/study. > Interpreting Provider: Karuna Hernandez MD on 12/28/2023 12:10 PM Narrative 12/28/2023 12:10 PM AUTOMOTIVE ELECTRICAL FITTER PROCEDURE: ??US ABDOMEN LIMITED, DATE/TIME OF EXAM: ??12/28/2023 9:42 AM, LOCATION ??[facility] INDICATION: K70.30: Alcoholic cirrhosis of liver [...] DATE/TIME OF EXAM: 12/28/2023 9:42 AM, LOCATION [facility] INDICATION: K70.30: Alcoholic cirrhosis of liver [...] of portal hypertensionincluding splenomegaly. Report drafted by Jimbo Chopra (resident). > Dictated by Jimbo Chopra (Natural Gas Shothole Driller) 12/28/2023 9:51 AM IKaruna MD have personally reviewed and interpreted this examination/study. > Interpreting Provider: Karuna Hernandez MD on 12/28/2023 12:10 PM Dirk Mcdermott MD US ORDERABLES documented in this encounter Visit Diagnoses Diagnosis Alcoholic cirrhosis of liver without ascites (HCC) Alcoholic cirrhosis of liver documented in this encounter Care Teams Private Tutors And Teachers Relationship Specialty Start Date End Date Lee Campbell MD [address] [place] [address] PCP - General Internal Medicine 04/15/21 Mat Stubbs MD [address] [facility] [address] [place] [address] Gastroenterology 04/15/21 documented as of this encounter
--- OUTSIDE RECORDS SUMMARY | 2024-11-26 05:23 | XMS_ITS | Patient Health Summary ---
Author Organization [facility] Address [address] [place] [address] Care Team Providers Care Bead Forming Machine Operator Name Role Phone Lee Campbell MD Primary Care Provider Mat Stubbs MD Unavailable [phone] Note from [facility],non-owned Affiliates and Associated Physician Practices is amultiple site organization consisting of ambulatory clinics and hospital sitesin [place], [place], [place] and [place]. This disclosure is being madepursuant to the Care Everywhere program and may not contain all information available regarding this patient. Last updated 18.[facility] Allergies No known active allergies Medications * Be aware that medications may not be up to date on this document. Alwaysverify current medications with the patient. * levonorgestrel (MIRENA, 52 MG,) 20 MCG/24HR IUD Mirena 20 mcg/24 hours (6 yrs) 52 mg intrauterine device Take by intrauterine route. * Multiple Vitamin (MULTIVITAMIN ADULT) TABS Take 1 tablet by mouth * Hepatitis B Vac Recomb Adj (Heplisav-B) 20 MCG/0.5ML SOLN(Started 05/19/2023) Inject 0.5 mL into muscle every 30 days Reasons: Hepatitis B 1 refill by 05/18/2024 * polyethylene glycol 3350 (Miralax) 17 GM/SCOOP powder(Started 07/12/2023) Mix all of powder with 64oz liquid. Drink 48oz of mixture at 5pm the night before colonoscopy. Finish at 4am the day of test * ondansetron (Zofran) 4 MG tablet(Started 01/04/2024) Take 1 (one) tablet by mouth every 6 hours as needed for Nausea/Vomiting Active Problems Problem Noted Date Diagnosed Date Secondary esophageal varices without bleeding Colon cancer screening 01/08/2023 Alcoholic cirrhosis of liver without ascites 08/2021 Immunizations * Covid Pfizer primary monovalent 12+ yr 0.3mL Purple cap(Given 02/09/2021, 01/19/2021) Social History Tobacco Use Types Packs/Day Years Used Date Smoking Tobacco: Never Smokeless Tobacco: Never Tobacco Cessation:Counseling Given: Not Answered Alcohol Use Standard Drinks/Week Comments Not Currently 0 (1 standard drink = 0.6 oz pure alcohol) past use 07/11, beer, wine, and hard liquor Sex and Gender Information Value Date Recorded Sex Assigned at Female 12/08/2020 7:15 PM DISCHARGING MACHINE OPERATOR Gender Identity Female 12/08/2020 7:15 PM DISCHARGING MACHINE OPERATOR Sexual Orientation Straight 12/08/2020 7: 15 PM DISCHARGING MACHINE OPERATOR Last Filed Vital Signs Vital Sign Reading Time Taken Comments Blood Pressure 132/84 12/28/2023 10:53 AM DISCHARGING MACHINE OPERATOR Pulse 61 12/28/2023 10:53 AM DISCHARGING MACHINE OPERATOR Temperature 36.6 ??C (97.9 ??F) 12/28/2023 10:[address] Respiratory Rate 21 05/17/2023 9:00 AM CDT Oxygen Saturation 100% 12/28/2023 10:53 AM DISCHARGING MACHINE OPERATOR Inhaled Oxygen Concentration - - Weight 62.1 kg (137 lb) 12/28/2023 10:53 AM DISCHARGING MACHINE OPERATOR Height 162.6 cm (5' 4 ) 12/28/2023 10:53 AM DISCHARGING MACHINE OPERATOR Body Mass Index 23.52 12/28/2023 10:53 AM DISCHARGING MACHINE OPERATOR Procedures * US ABDOMEN LIMITED(Performed 07/04/2024) Performed for Alcoholic cirrhosis of liver without ascites (HCC), Colon cancer screening * US ABDOMEN LIMITED(Performed 12/28/2023) Performed for Alcoholic cirrhosis of liver without ascites (HCC) * US ABDOMEN LIMITED(Performed 06/22/2023) Performed for Alcoholic cirrhosis of liver without ascites (HCC), Colon cancer screening * PATHOLOGY TISSUE(Performed 05/17/2023) Performed for Alcoholic cirrhosis of liver without ascites (HCC), Screen for colon cancer * GA ED EGD FLEX TRANSORAL DX(Performed 05/17/2023) Performed for Alcoholic cirrhosis of liver without ascites (HCC), Screen for colon cancer * ENDOSCOPY, COLON, SCREENING(Performed 05/17/2023) * HCG URINE QUALITATIVE - POCT (IP) INTERFACED(Performed 05/17/2023) * HCG URINE QUAL POCT NOTIFICATION(Performed 05/17/2023) Performed for Preop examination * US ABDOMEN LIMITED(Performed 01/22/2023) Performed for Alcoholic cirrhosis of liver without ascites (HCC), Portal hypertension (HCC), Elevated bilirubin * PT-INR SLH(Performed 12/29/2022) Performed for Alcoholic cirrhosis of liver without ascites (HCC), Portal hypertension (HCC), Elevated bilirubin * CBC W AUTO DIFFERENTIAL(Performed 12/29/2022) Performed for Alcoholic cirrhosis of liver without ascites (HCC), Portal hypertension (HCC), Elevated bilirubin * BASIC METABOLIC PANEL (CALCIUM TOTAL)(Performed 12/29/2022) Performed for Alcoholic cirrhosis of liver without ascites (HCC), Portal hypertension (HCC), Elevated bilirubin * HEPATIC FUNCTION PANEL(Performed 12/29/2022) Performed for Alcoholic cirrhosis of liver without ascites (HCC), Portal hypertension (HCC), Elevated bilirubin * PT-INR SL[facility](Performed 07/17/2022) Performed for Alcoholic cirrhosis of liver without ascites (HCC) * CBC W AUTO DIFFERENTIAL(Performed 07/17/2022) Performed for Alcoholic cirrhosis of liver without ascites (HCC) * BASIC METABOLIC PANEL (CALCIUM TOTAL)(Performed 07/17/2022) Performed for Alcoholic cirrhosis of liver without ascites (HCC) * HEPATIC FUNCTION PANEL(Performed 07/17/2022) Performed for Alcoholic cirrhosis of liver without ascites (HCC) * CERULOPLASMIN(Performed 02/13/2022) Performed for Alcoholic cirrhosis of liver without ascites (HCC) * BASIC METABOLIC PANEL (CALCIUM TOTAL)(Performed 02/13/2022) Performed for Alcoholic cirrhosis of liver without ascites (HCC) * HEPATIC FUNCTION PANEL(Performed 02/13/2022) Performed for Alcoholic cirrhosis of liver without ascites (HCC) * HEPATITIS A ANTIBODY(Performed 02/13/2022) Performed for Alcoholic cirrhosis of liver without ascites (HCC) * HEPATITIS B SURFACE ANTIBODY(Performed 02/13/2022) Performed for Alcoholic cirrhosis of liver without ascites (HCC) * HEPATITIS B SURFACE ANTIGEN W RFLX CONFIRMATION(Performed 02/13/2022) Performed for Alcoholic cirrhosis of liver without ascites (HCC) * HEPATITIS C AB SCREEN RFLX NAAT QUANT(Performed 02/13/2022) Performed for Alcoholic cirrhosis of liver without ascites (HCC) * CBC W AUTO DIFFERENTIAL(Performed 02/13/2022) Performed for Alcoholic cirrhosis of liver without ascites (HCC) * US ABDOMEN LIMITED(Performed 01/21/2022) Performed for Alcoholic cirrhosis of liver without ascites (HCC) * PT-INR [facility](Performed 04/15/2021) Performed for Alcoholic liver disease (HCC) * COMPREHENSIVE METABOLIC PANEL(Performed 04/15/2021) Performed for Alcoholic liver disease (HCC) * CBC W AUTO DIFFERENTIAL(Performed 04/15/2021) Performed for Alcoholic liver disease (HCC) Results * US ABDOMEN LIMITED (07/04/2024 10:14 AM CDT) Only the most recent of5 resultswithin the time period is included. Anatomical Region Laterality Modality Abdomen Ultrasound 07/04/2024 10:5 4 AM CDT Impressions 07/04/2024 11:46 PM CDT IMPRESSION: 1.Cirrhotic liver morphology with sequela of portal hypertension including splenomegaly. 2.No cholelithiasis. US LI RADS screening/surveillance Category: US LI-RADS score: US-1 Negative. Routine 6 months surveillance ultrasound examination recommended. Visualization score: A - no or minimal limitation. > Dictated by Romel Guzmán MD, (resident physician). IKaruna MD have personally reviewed and interpreted this examination/study. > Interpreting Provider: Karuna Hernandez MD on 07/04/2024 11:46 PM Narrative 07/04/2024 11:46 PM CDT PROCEDURE: ??US ABDOMEN LIMITED, DATE/TIME OF EXAM: ??07/04/2024 10:14 AM, LOCATION ??[facility] INDICATION: K70.30: Alcoholic cirrhosis of liver [...] DATE/TIME OF EXAM: 07/04/2024 10:14 AM, LOCATION [facility] INDICATION: K70.30: Alcoholic cirrhosis of liver [...] limitation. > Dictated by Romel Guzmán MD, (resident physician). Karuna Peguero MD have personally reviewed and interpreted this examination/study. > Interpreting Provider: Karuna Hernandez MD on 07/04/2024 11:46 PM Dirk Mcdermott MD ORDERABLES * PATHOLOGY TISSUE (05/17/2023 8:15 AM CDT) Case Report Surgical Pathology Report ? Case: [id number] ? Authorizing Provider: ??Dirk Mcdermott MD ?Collected: ? 05/17/2023 08:15 AM ? Ordering Location: ? [facility] ?Received: ?05/17/2023 10:34 AM ? Pathologist: ? Kasie Frye MD ? Specimen: ?Gastric, ??Gastric bx to r/o H.pylori ? 05/19/2023 5:52 PM CDT [facility] Final Diagnosis Stomach, biopsy (A): - Antral and oxyntic mucosa, no histopathologic abnormality - No active inflammation or intestinal metaplasia - Negative for Helicobacter pylori on the Helicobacter pylori immunohistochemical stain 05/19/2023 5:[address] [facility] PATH[facility]Y [facility] Microscopic Description and Comment Microscopic examination substantiates the final diagnosis. The Helicobacter pylori immunostain controls stained appropriately. 05/19/2023 5:52 PM T [facility] Clinical History The patient is a 48-year-old woman with cirrhosis with suspected esophageal varices. Operative procedure/findings: Upper GI endoscopy - Chronic gastritis, biopsied. 05/19/2023 5:52 PM CDT [facility] Gross Description The requisition and specimen(s) are identified with the patient's name Alea Garcia. Received in formalin, specimen A , are 5 ramsay-red soft tissues ranging from 0.2 to 0.4 cm which are submitted in toto in A1. /ml 05/19/2023 5:52 PM T [facility] PATHOLOGY LAB Pathologist Location at [facility] 05/19/2023 5:52 PM CDT [facility] Disclaimer The performance characteristics of all immunohistochemical and indirect immunofluorescence stains (if any) cited in this report were determined by the Histopathology Laboratory of [facility]. Some of these tests were developed by [...] the attending (teaching) pathologist. 05/19/2023 5:52 PM T [facility] Embedded Images 05/19/2023 5:52 PM CDT [facility] PATHOLOGY LAB Biopsy, NOS GASTRIC CONTENTS SPECIMEN / Unknown 05/17/2023 8:15 AM CDT 05/17/2023 10:34 AM CDT Dirk Mcdermott MD LAB - PATHOLOGY/CYTO LOGY ORDERABLES Performing Organization Address City/State/[facility] Co de Phone Number [facility] PATHOLOGY LAB [address] [place] [id number] [place] [address] * ENDOSCOPY, COLON, SCREENING (05/17/2023 7:59 AM [...] years for ?surveillance. ?- [facility]. ? Attending Participation: ??I personally performed the entire procedure. ? Procedure Code(s): ? --- Professional --- ? 02612, Esophagogastroduod enoscopy, flexible, transoral; with biopsy, ? single or multiple Diagnosis Code(s): ?--- Professional --- ?K74.60, Unspecified cirrhosis of liver ?I85.10, Secondary esophageal varices without ?bleeding ?K29.50, Unspecified chronic gastritis without ?bleeding CPT copyright 2022 [employer]. All rights reserved. The codes documented in this report are preliminary and upon hospital coder review may be revised to meet current compliance requirements. Dirk Mcdermott MD 05/17/2023 8:31:34 AM This report has been signed electronically. Note Initiated On: 05/17/2023 7:59 AM Number of Addenda: 0 ? [address] [place] [address] [facility] 05/17/2023 7:59 AM CDT Dirk Mcdermott MD GI PROCEDURE ORDERAB LES Performing Organization Address City/[facility]/ZIP Co de Phone Number [facility] * HCG URINE QUALITATIVE - POCT (IP) INTERFACED (05/17/2023 7:27 AM CDT) HCG Qual Urine Negative Negative 05/17/2023 7:39 AM CDT [facility] Urine URINE / Unknown 05/17/2023 7 :27 AM CDT 05/17/2023 7:39 AM CDT Dirk Mcdermott MD LAB - POINT OF CARE ORDERABLES Performing Organization Address [facility] Co de Phone Number [address] [address], [place] [phone] * HCG URINE QUAL POCT NOTIFICATION (05/17/2023 6:00 AM CDT) Comment Notification Label Only - See Separate Report 05/17/2023 7:30 AM CDT [facility] Urine URINE / Unknown 05/17/2023 6 :00 AM CDT 05/17/2023 6:00 AM CDT Dirk Mcdermott MD LAB - URINALYSIS ORD ERABLES Performing Organization Address [facility] Co de Phone Number [address] [address], [place] [phone] * PT-INR [facility] (12/29/2022 11:34 AM DISCHARGING MACHINE OPERATOR) Only the most recent of3 resultswithin the time period is included. Pathologist [facility] [place] PT 14.7 12.1 - 14.8 Seconds 12/29/2022 12:15 PM [facility] INR 1.2 See Comment 12/29/2022 12:15 PM [facility] Comment:The suggested therap eutic range for standard coumadin (warfarin) therapy is an INR of 2.0-3.0. For high-risk patients (Mechanical Mitral Valve Prosthesis, etc.), the suggested prophylactic therapeutic range is an INR of 2.5-3.5. Blood BLOOD SPECIMEN / Unknown Lab Venipuncture / Unknown 12/29/2022 11:34 AM DISCHARGING MACHINE OPERATOR 12/29/2022 11:55 AM DISCHARGING MACHINE OPERATOR Lani Hernandez PA-C LAB - COAGULATI ON ORDERABLES Performing Organization Address City/State/[facility] Co de Phone Number [address] [address] [phone] * (ABNORMAL) CBC WITH DIFFERENTIAL (12/29/2022 11:34 AM DISCHARGING MACHINE OPERATOR) Only the most recent of4 resultswithin the time period is included. Pathologist [facility] [place] WBC 5.3 3.5 - 10.5 10? 3 /uL 12/29/2022 12:13 PM [facility] RBC 4.82 3.80 - 5.20 10? 6 /uL 12/29/2022 12:13 PM [facility] Hemoglobin 14.1 12.0 - 15.6 g/dL 12/29/2022 12:13 PM [facility] Hematocrit 41.7 35.0 - 45.0 % 12/29/2022 12:13 PM [facility] MCV 86.5 80.7 - 98.3 fL 12/29/2022 12:13 PM [facility] MCH 29.3 26.7 - 34.0 pg 12/29/2022 12:13 PM [facility] MCHC 33.8 30.8 - 35.9 g/dL 12/29/2022 12:13 PM [facility] RDW-SD 38.7 36.0 - 50.0 fL 12/29/2022 12:13 PM [facility] RDW-CV 12.2 11.2 - 14.8 % 12/29/2022 12:13 PM [facility] Platelet Count 77(L) 150 - 400 10? 3 /uL 12/29/2022 12:13 PM [facility] MPV 12.4 9.4 - 12.9 fL 12/29/2022 12:13 PM [facility] nRBC Absolute 0.00 0 10? 3 /uL 12/29/2022 12:13 PM [facility] nRBC Auto 0.0 0 /100 WBC 12/29/2022 12:13 PM [facility] Neutrophils % 67.1 35.0 - 70.0 % 12/29/2022 12:13 PM [facility] Lymphocytes % 23.0 20.0 - 43.0 % 12/29/2022 12:13 PM [facility] Monocytes % 7.5 5.0 - 13.0 % 12/29/2022 12:13 PM [facility] Eosinophils % 1.3 0.0 - 6.0 % 12/29/2022 12:13 PM [facility] Basophil % 0.7 0.0 - 2.0 % 12/29/2022 12:13 PM [facility] Neutrophils Absolute 3.58 1.60 - 7.00 10? 3 /uL 12/29/2022 12:13 PM [facility] Lymphocyte Absolute 1.23 1.10 - 3.90 10? 3 /uL 12/29/2022 12:13 PM [facility] Monocytes Absolute 0.40 0.26 - 1.07 10? 3 /uL 12/29/2022 12:13 PM [facility] Eosinophils Absolute 0.07 0.00 - 0.47 10? 3 /uL 12/29/2022 12:13 PM [facility] Basophils Absolute 0.04 0.00 - 0.08 10? 3 /uL 12/29/2022 12:13 PM [facility] Immature Granulocytes % 0.4 0.0 - 1.0 % 12/29/2022 12:13 PM [facility] Immature Granulocytes Absolute 0.02 12/29/2022 12:13 PM [facility] Blood BLOOD SPECIMEN / Unknown Lab Venipuncture / Unknown 12/29/2022 11:34 AM DISCHARGING MACHINE OPERATOR 12/29/2022 11:56 AM DISCHARGING MACHINE OPERATOR Lani Hernandez PA-C LAB - HEMATOLOG Y ORDERABLES Performing Organization Address City/[facility]/ZIP Co de Phone Number [facility] [address] [place] [address], [facility] [phone] * (ABNORMAL) BASIC METABOLIC PANEL (CALCIUM TOTAL) (12/29/2022 11:34 AM DISCHARGING MACHINE OPERATOR) Only the most recent of3 resultswithin the time period is included. BUN 11 7 - 26 mg/dL 12/29/2022 12:20 PM [facility] Creatinine 0.56 0.56 - 0.96 mg/dL 12/29/2022 12:20 PM [facility] Sodium 138 136 - 145 mmol/L 12/29/2022 12:20 PM [facility] Potassium 4.0 3.5 - 4.5 mmol/L 12/29/2022 12:20 PM [facility] Chloride 105 98 - 107 mmol/L 12/29/2022 12:20 PM [facility] CO2 28 22 - 29 mmol/L 12/29/2022 12:20 PM [facility] Glucose 68(L) 70 - 115 mg/dL 12/29/2022 12:20 PM [facility] Calcium 9.7 8.4 - 10.2 mg/dL 12/29/2022 12:20 PM [facility] Anion Gap 9 8 - 18 12/29/2022 12:20 PM [facility] BUN/Creatinine Ratio 20 7 - 23 12/29/2022 12:20 PM [facility] Osmolality Calculated 284 270 - 300 mOsm/kg 12/29/2022 12:20 PM [facility] eGFR by CKD-EPI >90 >=90 mL/min/1.7 3 m2 12/29/2022 12:20 PM [facility] Blood BLOOD SPECIMEN / Unknown Lab Venipuncture / Unknown 12/29/2022 11:34 AM DISCHARGING MACHINE OPERATOR 12/29/2022 11:55 AM DISCHARGING MACHINE OPERATOR Lani Hernandez PA-C LAB - CHEMISTRY ORDERABLES [facility] [address] [place] [address], [facility] [phone] * HEPATIC FUNCTION PANEL (12/29/2022 11:34 AM DISCHARGING MACHINE OPERATOR) Only the most recent of3 resultswithin the time period is included. Protein Total 7.4 6.0 - 8.3 g/dL 023 12:20 PM [facility] Albumin 4.3 3.4 - 5.0 g/dL 12/29/2022 12:20 PM [facility] Bilirubin Total 1.1 0.2 - 1.2 mg/dL 05/2023 12:20 PM [facility] Bilirubin Conjugated 0.4 0.1 - 0.5 mg/dL 12/29/2022 12:20 PM [facility] Bilirubin Unconjugated 0.7 Unconjugated Bilirubin is a calculated value: Reference ranges have not been established. mg/dL 12/29/2022 12:20 PM [facility] Alkaline Phosphatase 72 40 - 150 U/L 12/29/2022 12:20 PM [facility] ALT 25 5 - 55 U/L 12/29/2022 12:20 PM [facility] AST 32 5 - 34 U/L 12/29/2022 12:20 PM [facility] Albumin/Globulin Ratio 1.4 1.1 - 2.3 12/29/2022 12:20 PM [facility] Blood BLOOD SPECIMEN / Unknown Lab Venipuncture / Unknown 12/29/2022 11:34 AM DISCHARGING MACHINE OPERATOR 12/29/2022 11:55 AM DISCHARGING MACHINE OPERATOR Lani Hernandez PA-C LAB - CHEMISTRY ORDERABLES [address] [address], [facility] [phone] * HEPATITIS C AB SCREEN RFLX NAAT QUANT (02/13/2022 12:58 PM CDT) [facility] Hepatitis C Antibody Non-react shaylee Non-reac tive 02/13/2022 2:52 PM CDT [facility] Comment:Hepatitis C Antibody screen indicates no serologic [...] CDT Dirk Mcdermott MD LAB - CHEMISTRY ADRIEN MARTINEZ [address] [address], [facility] [phone] * CERULOPLASMIN (02/13/2022 12:58 PM CDT) [facility] Ceruloplasmin 28 20 - 60 mg/dL 02/13/2022 2:34 PM CDT [facility] Blood BLOOD SPECIMEN / Unknown Lab Venipuncture / Unknown 02/13/2022 12:58 PM CDT 02/13/2022 1:58 PM CDT Dirk Mcdermott MD LAB - CHEMISTRY ADRIEN MARTINEZ [address] [address], [facility] [phone] * HEPATITIS B SURFACE ANTIBODY (02/13/2022 12:58 PM CDT) [facility] Hepatitis B Virus Surface Antibody Non-react shaylee Non-react shaylee 02/13/2022 2:52 PM CDT [facility] Comment: < 8 mIU/mL Hepatitis B surface Antibody (HBsAb). Nonreactive for HBsAb - individual is considered not immune to Hepatitis B Virus infection. Hepatitis B Surface Antibody Quantitative 0.0 <8.0 mIU/mL 02/13/2022 2:52 PM CDT [facility] Comment: Hepatitis B Surface Antibody Numeric Result Interpretation: ? Nonreactive: ?<8.0 mIU/mL ? Indeterminate: ??8.0 - 12.0 mIU/mL ? Reactive: ?>12.0 mIU/mL ? Blood BLOOD SPECIMEN / Unknown Lab Venipuncture / Unknown 02/13/2022 12:58 PM CDT 02/13/2022 1:58 PM CDT Dirk Mcdermott MD LAB - CHEMISTRY ADRIEN MARTINEZ Performing Organization Address [facility]/ZIP Co de Phone Number [address] [address], [place] [phone] * HEPATITIS B SURFACE ANTIGEN W RFLX CONFIRMATION (02/13/2022 12:58 PM CDT) Pathologist [facility] [place] Hepatitis B Virus Surface Antigen Non-reacti ve Non-reacti ve 02/13/2022 2:52 PM CDT [facility] Blood BLOOD SPECIMEN / Unknown Lab Venipuncture / Unknown 02/13/2022 12:58 PM CDT 02/13/2022 1:58 PM CDT Dirk Mcdermott MD LAB - CHEMISTRY ADRIEN MARTINEZ Performing Organization Address [facility]/ZIP Co de Phone Number [address] [address], [place] [phone] * (ABNORMAL) HEPATITIS A ANTIBODY (02/13/2022 12:58 PM CDT) Hepatitis A Virus Antibody Total Positive( A) Negative 02/15/2022 9:22 AM CDT [facility] ([facility]) Comment: The positive anti-HAV is consistent with recent or remote Hepatitis A infection or antibody response to HAV vaccination. False positive anti-HAV can occur. Performed by [employer], [address] [place] [address] [email or web address], Danelle Martínez MD, Lab. Director Blood BLOOD SPECIMEN / Unknown Lab Venipuncture / Unknown 02/13/2022 12:58 PM CDT 02/13/2022 1:58 PM CDT Dirk Mcdermott MD LAB - CHEMISTRY ADRIEN MARTINEZ [facility] ([facility]) [address] [place] [address], [facility] * (ABNORMAL) COMPREHENSIVE METABOLIC PANEL (04/15/2021 1:38 PM CDT) BUN 8 7 - 26 mg/dL 04/15/2021 3:05 PM [facility] Creatinine 0.53(L) 0.56 - 0.96 mg/dL 04/15/2021 3:05 PM [facility] Sodium 141 136 - 145 mmol/L 04/15/2021 3:05 PM [facility] Potassium 3.5 3.5 - 4.5 mmol/L 04/15/2021 3:05 PM [facility] Chloride 106 98 - 107 mmol/L 04/15/2021 3:05 PM [facility] CO2 25 22 - 29 mmol/L 04/15/2021 3:05 PM [facility] Glucose 98 70 - 115 mg/dL 04/15/2021 3:05 PM [facility] Calcium 9.3 8.4 - 10.2 mg/dL 04/15/2021 3:05 PM [facility] Protein Total 7.7 6.0 - 8.3 g/dL 04/15/2021 3:05 PM [facility] Albumin 4.2 3.4 - 5.0 g/dL 04/15/2021 3:05 PM [facility] Bilirubin Total 1.6(H) 0.2 - 1.2 mg/dL 04/15/2021 3:05 PM [facility] Alkaline Phosphatase 95 40 - 150 U/L 04/15/2021 3:05 PM [facility] ALT 33 5 - 55 U/L 04/15/2021 3:05 PM [facility] AST 52(H) 5 - 34 U/L 04/15/2021 3:05 PM [facility] Anion Gap 14 8 - 18 04/15/2021 3:05 PM [facility] BUN/Creatinine Ratio 15 7 - 23 04/15/2021 3:05 PM [facility] Osmolality Calculated 290 270 - 300 mOsm/kg 04/15/2021 3:05 PM [facility] Albumin/Globulin Ratio 1.2 1.1 - 2.3 04/15/2021 3:05 PM [facility] eGFR by CKD-EPI >90 >=90 mL/min/1.7 3 m2 04/15/2021 3:05 PM [facility] Blood BLOOD SPECIMEN / Unknown Lab Venipuncture / Unknown 04/15/2021 1:38 PM CDT 04/15/2021 2:17 PM T Dirk Mcdermott MD LAB - CHEMISTRY ADRIEN MARTINEZ [facility] Organization Address City/[facility]/ZIP Co de Phone Number [facility] [address] [place] [address], [facility] [phone] Care Teams Bead Forming Machine Operator Relationship Specialty Start Date End Date Lee Campbell MD [address] [facility] [place] [address] PCP - General Internal Medicine 04/15/21 Mat Stubbs MD [address] [place] [address] Gastroenterology 04/15/21
--- OUTSIDE RECORDS SUMMARY | 2024-11-26 05:23 | XMS_ITS | Encounter Summary ---
Author Organization [facility] Address [address] [place] [address] Care Team Providers Care Naval [employer]crew[employer] Tactical Helicopter Name Role Phone Lee Campbell MD Primary Care Provider [phone] Mat Stubbs MD Unavailable [phone] Reason for Visit * Auth/Cert (Routine) Specialty Diagnoses / Procedures Referred By Contac t Referred To Contact Diagnoses Alcoholic cirrhosis of liver without ascites (HCC) Screen for colon cancer Procedures ESOPHAGOGASTRODUODENOSCOPY (EGD) DIAGNOSTIC COLONOSCOPY SCREEN Referral ID Status Reason Start Date Expiration Date Visits Re quested Visits Authorized [id number] 1 1 Encounter Details Date Type Department Care Team (Latest Contact Info) Description 05/17/2023 6:59 AM CDT - 05/17/2023 9:13 AM CDT Hospital Encounter [facility] [address] [place] [id number] Dirk Mcdermott MD [address] [place] [address] Surgery General Discharge Disposition: Home or Self Care Social History Tobacco Use Types Packs/Day Years Used Date Smoking Tobacco: Never Smokeless Tobacco: Never Alcohol Use Standard Drinks/Week Comments Not Currently 0 (1 standard drink = 0.6 oz pure alcohol) past use 07/11, beer, wine, and hard liquor Sex and Gender Information Value Date Recorded Sex Assigned at Female 12/08/2020 7:15 PM ONCOLOGY CONSULTANT Gender Identity Female 12/08/2020 7:15 PM ONCOLOGY CONSULTANT Sexual Orientation Straight 12/08/2020 7: 15 PM ONCOLOGY CONSULTANT COVID-19 Exposure Response Date Recorded In the last 10 days, have jorge alberto holden been in contact with someone who was [...] st Contact Info) Description 01/02/2025 8:45 AM ONCOLOGY CONSULTANT Appointment [facility] [address] [place] [address] 01/02/2025 9:30 AM ONCOLOGY CONSULTANT Appointment [facility]RAW [facility] [address] [place] [address] 01/02/2025 10:00 AM ONCOLOGY CONSULTANT Office Visit [facility] - GI [address] [place] [address], [place] [address] Dirk Mcdermott MD [address] [place] [address] [place] [address] documented as of this encounter Goals Goal Patient Goal Type Associated Problems Recent Progress Patient-Stated? Author Reduce fat intake. Diet On track( 11:01 AM ONCOLOGY CONSULTANT) Rupali Cruz, RN Note: REDUCED FAT AND REDUCED SODIUM DIET. Safety General On track( 11:01 AM ONCOLOGY CONSULTANT) Rupali Cruz RN Note: Expected end date: [...] Today Call patient Yuliet Wallis, RN P [facility] Schedulers - Endoscopy Pool Hello Ladies: Please [...] Case Report Surgical Pathology Report ? Case: [id number] ? Authorizing Provider: ??Dirk Mcdermott MD ?Collected: ? 05/17/2023 08:15 AM ? Ordering Location: ? [facility] ?Received: ?05/17/2023 10:34 AM ? Pathologist: ? Kasie Frye MD ? Specimen: ?Gastric, ??Gastric bx to r/o H.pylori ? 05/19/2023 5:52 PM CDT [facility] Final Diagnosis Stomach, biopsy (A): - Antral and oxyntic mucosa, no histopathologic abnormality - No active inflammation or intestinal metaplasia - Negative for Helicobacter pylori on the Helicobacter pylori immunohistochemical stain 05/19/2023 5:52 PM [facility] Microscopic Description and Comment Microscopic examination substantiates the final diagnosis. The Helicobacter pylori immunostain controls stained appropriately. 05/19/2023 5:52 PM [facility] Clinical History The patient is a 48-year-old woman with cirrhosis with suspected esophageal varices. Operative procedure/findings: Upper GI endoscopy - Chronic gastritis, biopsied. 05/19/2023 5:52 PM [facility] Gross Description The requisition and specimen(s) are identified with the patient's name Alea Garcia. Received in formalin, specimen A , are 5 ramsay-red soft tissues ranging from 0.2 to 0.4 cm which are submitted in toto in A1. /ml 05/19/2023 5:52 PM CDT [facility] Pathologist Location at [facility] 05/19/2023 5:52 PM CDT [facility] Disclaimer The performance characteristics of all immunohistochemical and indirect immunofluorescence stains (if any) cited in this report were determined by the Histopathology Laboratory of [facility]. Some of these tests were developed [...] the attending (teaching) pathologist. 05/19/2023 5:52 PM CDT [facility] Embedded Images 05/19/2023 5:52 PM CDT [facility] Biopsy, NOS GASTRIC CONTENTS SPECIMEN / Unknown 05/17/2023 8:15 AM CDT 05/17/2023 10:34 AM CDT Dikr Mcdermott MD LAB - PATHOLOGY/CYTO LOGY ORDERABLES [facility] LAB [address] [place] [address], [facility] [phone] * ENDOSCOPY, COLON, SCREENING (05/17/2023 7:59 AM CDT) Report Endoscopy POC Endoscopy Department Report _ Patient Name: Alea Garcia ? Procedure Date: 05/17/2023 7:59 AM ?Date of : 1975 Classification: Outpatient ?Gender: Female Ethnicity: Not or ? Race: White _ Providers: ?Dirk Mcdermott MD Referring MD: ? manisha Howard (Referring MD) Procedure: ?Upper GI endoscopy Indications: ?Cirrhosis with [...] Procedure Code(s): ? --- Professional --- ? 93011, Esophagogastroduod enoscopy, flexible, transoral; with biopsy, ? single or multiple Diagnosis Code(s): ?--- Professional --- ?K74.60, Unspecified cirrhosis of liver ?I85.10, Secondary esophageal varices without ?bleeding ?K29.50, Unspecified chronic gastritis without ?bleeding CPT copyright 2021 [employer]. All rights reserved. The codes documented in this report are preliminary and upon remote coders review may be revised to meet current compliance requirements. Dirk Mcdermott MD 05/17/2023 8:31:34 AM This report has been signed electronically. Note Initiated On: 05/17/2023 7:59 AM Number of Addenda: 0 ? [facility] ? [address] [place] [address] [facility] 05/17/2023 7:59 AM CDT Dirk Mcdermott MD GI PROCEDURE ORDERAB LES Performing Organization Address City/State/[facility] Co de Phone Number [facility] * HCG URINE QUALITATIVE - POCT (IP) INTERFACED (05/17/2023 7:27 AM CDT) HCG Qual Urine Negative Negative 05/17/2023 7:39 AM CDT [facility] Urine URINE / Unknown 05/17/2023 7 :27 AM CDT 05/17/2023 7:39 AM CDT Dirk Mcdermott MD LAB - POINT OF CARE ORDERABLES [address] [address], [place] [phone] * HCG URINE QUAL POCT NOTIFICATION (05/17/2023 6:00 AM CDT) Comment Notification Label Only - See Separate Report 05/17/2023 7:30 AM CDT [facility] Urine URINE / Unknown 05/17/2023 6 :00 AM CDT 05/17/2023 6:00 AM CDT Dirk Mcdermott MD LAB - URINALYSIS ORD ERABLES Performing Organization Address City/[facility]/ZIP Co de Phone Number [address] [address], [place] [phone] documented in this encounter Visit Diagnoses Diagnosis [...] (GI) documented in this encounter Care Teams [employer] Hel[employer]opter Relationship Specialty Start Date End Date Lee Campbell MD [address] [place] [address] PCP - General Internal Medicine 04/15/21 Mat Stubbs MD [address] [place] [address] Gastroenterology 04/15/21 documented as of this encounter
--- OUTSIDE RECORDS SUMMARY | 2024-11-26 05:23 | XMS_ITS | Encounter Summary ---
Author Organization [facility] Address [address] [facility] [place] [address] Care Team Providers Care Executive Secretary Name Role Phone Lee Campbell MD Primary Care Provider [phone] Mat Stubbs MD Unavailable [phone] Encounter Details Date Type Department Care Team (Latest Contact Info) Description 12/28/2023 Travel Social History Tobacco Use Types Packs/Day Years Used Date Smoking Tobacco: Never Smokeless Tobacco: Never Alcohol Use Standard Drinks/Week Comments Not Currently 0 (1 standard drink = 0.6 oz pure alcohol) past use 07/11, beer, wine, and hard liquor Sex and Gender Information Value Date Recorded Sex Assigned at Female 12/08/2020 7:15 PM [employer] Gender Identity Female 12/08/2020 7:15 PM [employer] Sexual Orientation Straight 12/08/2020 7: 15 PM [employer] documented as of this encounter Plan of Treatment Upcoming Encounters Date Type Department Care Team (Late st Contact Info) Description 01/02/2025 8:45 AM [employer] Appointment [facility] [address] [place] [address] 01/02/2025 9:30 AM [employer] Appointment [facility] OP [place] [address] [address] [place] [address] 01/02/2025 10:00 AM [employer] Office Visit [facility] - GI [address] [place] [address], [place] [address] Dirk Mcdermott MD [address] [place] [address] [place] [address] documented as of this encounter Goals Goal Patient Goal Type Associated Problems Recent Progress Patient-Stated? Author Reduce fat intake. Diet On track( 11:01 AM [employer]) Rupali Cruz, RN Note: REDUCED FAT AND REDUCED SODIUM DIET. Safety General On track( 11:01 AM [employer]) Rupali Cruz RN Note: Expected end date: ONGOING Interventions: Wear glasses/hearing aid Keep personal items within easy reach Use some light at night in your room documented as of this encounter Visit Diagnoses Not on filedocumented in this encounter Care Teams Executive Secretary Relationship Specialty Start Date End Date Lee Campbell MD [address] [place] [address] PCP - General Internal Medicine 04/15/21 Mat Stubbs MD [address] [place] [address] Gastroenterology 04/15/21 documented as of this encounter
--- OUTSIDE RECORDS SUMMARY | 2024-11-26 05:23 | XMS_ITS | Encounter Summary ---
Author Organization [facility] Address [address] [place] [address] Care Team Providers Care Siderographist Name Role Phone Lee Campbell MD Primary Care Provider [phone] Mat Stubbs MD Unavailable [phone] Reason for Visit * Reason Onset Date Comments MEDICATION REFILL 05/14/2023 Encounter Details Date Type Department Care Team (Late st Contact Info) Description 05/14/2023 Refill [facility] - GI [address] [place] [address], [facility] [place] [phone] Dirk Mcdermott MD [address] [place] [address] [place] [address] MEDICATION REFILL Social History Tobacco Use Types Packs/Day Years Used Date Smoking Tobacco: Never Smokeless Tobacco: Never Alcohol Use Standard Drinks/Week Comments Not Currently 0 (1 standard drink = 0.6 oz pure alcohol) past use 07/11, beer, wine, and hard liquor Sex and Gender Information Value Date Recorded Sex Assigned at Female 12/08/2020 7:15 PM MONOTYPIST Gender Identity Female 12/08/2020 7:15 PM MONOTYPIST Sexual Orientation Straight 12/08/2020 7: 15 PM MONOTYPIST COVID-19 Exposure Response Date Recorded In the last 10 days, have yo u been in contact with someone who was confirmed or suspected to have Coronavirus/COVID-19? No / Unsure 05/17/2023 7:00 AM CDT documented as of this encounter Plan of Treatment Upcoming Encounters Date Type Department Care Team (Late st Contact Info) Description 01/02/2025 8:45 AM MONOTYPIST Appointment [facility] [address] [place] [address] 01/02/2025 9:30 AM MONOTYPIST Appointment [facility] OP [place]RAW [address] [address] [place] [address] 01/02/2025 10:00 AM MONOTYPIST Office Visit [facility] - GI [address] [facility], [place] [address] Dirk Mcdermott MD [address] [place] [address] [address] [place] [address] documented as of this encounter Goals Goal Patient Goal Type Associated Problems Recent Progress Patient-Stated? Author Reduce fat intake. Diet On track( 11:01 AM MONOTYPIST) No Rupali Pratt, RN Note: REDUCED FAT AND REDUCED SODIUM DIET. Safety General On track( 11:01 AM MONOTYPIST) No Rupali Pratt, RN Note: Expected end date: ONGOING Interventions: Wear glasses/hearing aid Keep personal items within easy reach Use some light at night in your room documented as of this encounter Visit Diagnoses Not on filedocumented in this encounter Care Teams Siderographist Relationship Specialty Start Date End Date Lee Campbell MD [address] [place] [address] PCP - General Internal Medicine 04/15/21 Mat Stubbs MD [address] [facility] [address] [place] [address] Gastroenterology 04/15/21 documented as of this encounter
--- OUTSIDE RECORDS SUMMARY | 2024-11-26 05:23 | XMS_ITS | Encounter Summary ---
Author Organization [facility] Address [address] [place] [address] Care Team Providers Care Supervisor Ornamental Ironworking Name Role Phone Lee Campbell MD Primary Care Provider [phone] Mat Stubbs MD Unavailable [phone] Encounter Details Date Type Department Care Team (Latest Contact Info) Description 05/17/2023 Travel Social History Tobacco Use Types Packs/Day Years Used Date Smoking Tobacco: Never Smokeless Tobacco: Never Alcohol Use Standard Drinks/Week Comments Not Currently 0 (1 standard drink = 0.6 oz pure alcohol) past use 07/11, beer, wine, and hard liquor Sex and Gender Information Value Date Recorded Sex Assigned at Female 12/08/2020 7:15 PM [employer]LLIANDEER LOPPER Gender Identity Female 12/08/2020 7:15 PM [employer]IAN[employer]ER LOPPER Sexual Orientation Straight 12/08/2020 7: 15 PM BRILLIANDEER LOPPER COVID-19 Exposure Response Date Recorded In the last 10 days, have yo u been in contact with someone who was confirmed or suspected to have Coronavirus/COVID-19? No / Unsure 05/17/2023 7:00 AM CDT documented as of this encounter Plan of Treatment Upcoming Encounters Date Type Department Care Team (Late st Contact Info) Description 01/02/2025 8:45 AM BRILLIANDEER LOPPER Appointment [facility] [address] [place] [address] 01/02/2025 9:30 AM BRI[employer]IANDEER LOPPER Appointment [facility] OP [place] [address] [place] [address] 01/02/2025 10:00 AM BRILLIANDEER LOPPER Office Visit [facility] - GI [address] [facility], [place] [address] Dirk Mcdermott MD [address] [place] [address] [address] [place] [address] documented as of this encounter Goals Goal Patient Goal Type Associated Problems Recent Progress Patient-Stated? Author Reduce fat intake. Diet On track( 11:01 AM BRILLIANDEER LOPPER) No Rupali Pratt, RN Note: REDUCED FAT AND REDUCED SODIUM DIET. Safety General On track( 11:01 AM BRILLIANDEER LOPPER) No Rupali Pratt, RN Note: Expected end date: ONGOING Interventions: Wear glasses/hearing aid Keep personal items within easy reach Use some light at night in your room documented as of this encounter Visit Diagnoses Not on filedocumented in this encounter Care Teams Supervisor Ornamental Ironworking Relationship Specialty Start Date End Date Lee Campbell MD [address] [facility] [place] [address] PCP - General Internal Medicine 04/15/21 Mat Stubbs MD [address] [facility] [address] [place] [address] Gastroenterology 04/15/21 documented as of this encounter
--- OUTSIDE RECORDS SUMMARY | 2024-11-26 05:23 | XMS_ITS | Encounter Summary ---
Author Organization [facility] Address [address] [place] [address] Care Team Providers Care Beam Dyer Name Role Phone Lee Campbell MD Primary Care Provider [phone] Mat Stubbs MD Unavailable [phone] Reason for Visit * Auth/Cert (Routine) Specialty Diagnoses / Procedures Referred By Contac t Referred To Contact Diagnoses Alcoholic cirrhosis of liver without ascites (HCC) Screen for colon cancer Procedures ESOPHAGOGASTRODUODENOSCOPY (EGD) DIAGNOSTIC COLONOSCOPY SCREEN Referral ID Status Reason Start Date Expiration Date Visits Re quested Visits Authorized [id number] 1 1 Encounter Details Date Type Department Care Team (Late st Contact Info) Description 05/17/2023 8:05 AM CDT Anesthesia Event [facility] [address] [place] [id number] Jessica Jones MD [address] [place] [address] DE[place] [phone] Anesthesia Record Procedure Summary Procedure Name Responsible Anesthesiologist Anesthesia Start Time Anesthesia Stop Time EGD w/ Befeler (Esophagus) Jessica Jones MD 05/17/23 0805 05/17/23 0827 Events Date Time Event Comment 05/17/2023 0740 0805 An Start 0805 Pt In Room 0805 An Start Data 0807 PT Reassessment 0808 Timeout Anesthesia part icipated in timeout at the time documented in the record by nursing. 0809 Induction 0811 Anes Ready 0811 Proc Start 0818 Proc Stop 0818 An Emergence 0823 an stop data 0824 Pt out of Room 0827 An Stop Meds Name Total lidocaine PF 2% 50 mg propofol 200mg/20mL injection 250 mg propofol 500 mg/50 mL 101.5 mg NS (0.9% NaCl) 200 mL * Agents Name O2 Flow - Auxiliary * Blood No blood administrations on file. Lines, Drains, and Airways Type Details Placement Removal Peripheral IV Date: 05/17/23; Time : 758; Orientation: Anterior, Proximal, Right; Placed By: Rosie YANEZ; Tolerance: Well 05/17/23 0759 by Rosie Sharp RN 05/17/23 0905 by Rosie Sharp RN documented in this encounter Social History Tobacco Use Types Packs/Day Years Used Date Smoking Tobacco: Never Smokeless Tobacco: Never Alcohol Use Standard Drinks/Week Comments Not Currently 0 (1 standard drink = 0.6 oz pure alcohol) past use 07/11, beer, wine, and hard liquor Sex and Gender Information Value Date Recorded Sex Assigned at Female 12/08/2020 7:15 PM CORE STRIPPER Gender Identity Female 12/08/2020 7:15 PM CORE STRIPPER Sexual Orientation Straight 12/08/2020 7: 15 PM CORE STRIPPER COVID-19 Exposure Response Date Recorded In the last 10 days, have yo u been in contact with someone who was confirmed or suspected to have Coronavirus/COVID-19? No / Unsure 05/17/2023 7:00 AM CDT documented as of this encounter Progress Notes * Jessica Jones MD - 05/17/2023 11:30 AM CDT ANESTHESIA POSTOP EVALUATION NOTE Procedure: EGD w/ Befecasa (Esophagus) Alea Garcia is a 48 year old female Patient Vitals for the past 6 hrs: BP Temp Pulse Resp SpO2 Pain Rating Score #1 Pain Scale/Observation Pulse - (SPO2/Cuff) 05/17/23 0712 -- 98.1 ??F (36.7 ??C) -- -- -- 0 N -- 05/17/23 0725 127/82 -- 78 10 100 % -- -- 78 bpm 05/17/23 0730 112/69 -- 68 10 100 % -- -- 72 bpm 05/17/23 0745 116/64 -- 81 13 100 % -- -- 83 bpm 05/17/23 0828 106/67 98.2 ??F (36.8 ??C) 83 11 100 % -- -- 85 bpm 05/17/23 0830 116/78 -- 82 20 97 % -- -- 83 bpm 05/17/23 0845 115/69 -- 63 11 99 % -- -- 63 bpm 05/17/23 0900 108/82 -- 60 21 98 % -- -- 61 bpm Anesthesia Type: general Pre-op Diagnosis Codes: * Alcoholic cirrhosis of liver without ascites (CMS/HCC) [K70.30] * Screen for colon cancer [Z12.11] Mental Status: awake, alert, neurologic status has returned to preoperative level and sufficiently recovered from acute administration of anesthesia to participate in the evaluation Respiratory Function: natural Cardiac Function: stable Postop Pain: acceptable to the patient Postop Hydration: adequate Postop Nausea: none Assessment: no apparent anesthetic complications, patient tolerated procedure well and no evidence of recall Patient Disposition: Follow Up Needed NOTABLE EVENTS: No notable events documented. * Jessica Jones MD - 05/17/2023 7:33 AM CDT ANESTHESIA PREOPERATIVE EVALUATION NOTE Procedure: EGD w/ Befeler (Esophagus) COLONOSCOPY SCREEN NPO status: Since Midnight (05/17/2023 7:13 AM) Vitals: Patient Vitals for the past 6 hrs: BP Temp Pulse Resp SpO2 Pain Rating Score #1 05/17/23 0725 127/82 -- 78 10 100 % -- 05/17/23 0712 -- 98.1 ??F (36.7 ??C) -- -- -- 0 LMP: No LMP recorded (lmp unknown). OB Status: unknown ANESTHESIA PRE-EVALUATION NOTE History of Present Illness: 48 yo alcoholic cirrhosis for egd /colon Pt puked most of her prep yesterday and today.still brown BM The patient is a current smoker (marijuana chews). Physical Exam: Orientation X3 Airway/Mallampati Score: II Mouth Opening Distance: 2.5 fingerwidths Neck ROM: full TM Distance: > 3 FB Teeth: normal Heart: normal - S1 S2 Lungs: clear to ausculation bilaterally Abdomen Exam: normal Review of Systems: History of anesthetic complications: No Sleep Apnea Risk: No Malignant Hyperthermia: No GERD: No Poor Exercise Tolerance: No Recent Chest Pain: No Shortness of Breath: No AICD/Pacemaker: No Renal Disease: No Diagnostic Tests: Lab(s) reviewed: Yes. ANESTHESIA PLAN ASA Score: 2 NPO Status: No liquids within 2 hours and Patient instructed to be NPO after midnight Anesthesia Plan: MAC and TIVA (back up ga with ett) Planned Induction: intravenous Planned Postop Destination: endo Anesthetic plan was discussed with: patient Anesthetic Plan discussion was: Consented The patient's procedural Anesthetic Plan was discussed with the biology research assistant. BMI, Height, Weight Tobacco History Estimated body mass index is 21.94 kg/m?? as calculated from the following: Height as of this encounter: 1.626 m (5' 4 ). Weight as of this encounter: 58 kg (127 lb 12.8 oz). Social History Tobacco Use Smoking Status Never Smokeless Tobacco Never Vaping Use ??? Vaping Use: Never used Alcohol History Drug History Social History Substance and Sexual Activity Alcohol Use Not Currently Comment: past use 07/11, beer, wine, and hard liquor Social History Substance and Sexual Activity Drug Use Yes Comment: CBD/THC edibles Outpatient Medications: Inpatient Medications: Outpatient Medications Marked as Taking for the 05/17/23 encounter (Hospital Encounter) Medication Sig Last Dose ??? Mirena (52 MG) Mirena 20 mcg/24 hours (6 yrs) 52 mg intrauterine device Take by intrauterine route. 05/17/2023 ??? Multivitamin Adult Take 1 tablet by mouth 05/15/2023 No current facility-administered medications for this encounter. Allergies: No Known Allergies Relevant Problems No relevant active problems Problem List: Patient Active Problem List Diagnosis Date Noted ??? Colon cancer screening 01/08/2023 Priority: Not Prioritized ??? Alcoholic cirrhosis of liver without ascites (CMS/HCC) 05/01/2021 Priority: Not Prioritized Medical History: Past Medical History: Diagnosis Date ??? Broken arm Surgical History: Past Surgical History: Procedure Laterality Date ??? Section ??? Tonsillectomy and Adenoidectomy FICTION WRITER Status: No LMP recorded (lmp unknown). unknown OB History No obstetric history on file. Covid Vaccine: Lab Results: No results found for requested labs within last 120 days. No results found for requested labs within last 120 days. documented in this encounter Miscellaneous Notes * Anesthesia Transfer of Care - Jostin Wilson Anes Asst - 05/17/2023 8:29 AM CDT ANESTHESIA TRANSFER OF CARE NOTE Today's Date: 05/17/2023 Date of : 1975 Patient: Alea Voss Moake Procedure(s) with comments: EGD w/ Jessieler - Small varices , gastritis, gastric erosions A. Gastric bx to r/o H.pylori- [place]andard bx Surgeon(s): Primary: Dirk Mcdermott MD Preop Diagnosis: Pre-op Diagnois: * Alcoholic cirrhosis of liver without ascites (CMS/HCC) [K70.30] * Screen for colon cancer [Z12.11] Pre-op Meds (From admission, onward) Start Stop Status Route Frequency Ordered 05/17/23 08 0.9% NaCl injection 3 mL -- Dispensed IK PRE-PROCEDURE MULTIPLE 05/17/23 0802 Post-op Diagnosis: * Alcoholic cirrhosis of liver without ascites (CMS/HCC) [K70.30] * Screen for colon cancer [Z12.11] . No Known Allergies Vitals: Patient Vitals for the past 3 hrs: BP Temp Pulse Resp SpO2 Pain Rating Score #1 05/17/23 0828 106/67 98.2 ??F (36.8 ??C) 83 11 100 % -- 05/17/23 0745 116/64 -- 81 13 100 % -- 05/17/23 0730 112/69 -- 68 10 100 % -- 05/17/23 0725 127/82 -- 78 10 100 % -- 05/17/23 0712 -- 98.1 ??F (36.7 ??C) -- -- -- 0 Lines, Drains, and Airways Type Details Placement Removal Peripheral IV Date: 05/17/23; Time: 0759; Orientation: Anterior, Proximal, Right; Location: Forearm; Placed By: Rosie YANEZ; Gauge: 20 Gauge; Locals: None; Tolerance: Well 05/17/23 0759 by Rosie Sharp RN Intraprocedure I/O Totals None Patient Transfer Location: Endo Recovery Transport Airway: spontaneous respirations Complications: None Handoff Given? Yes Checklist or Protocol - The romero handoff elements that must be included in the transfer of care checklist include: 1. Identification of patient. 2. Identification of responsible practitioner (PACU nurse or advanced practitioner). 3. Discussion of pertinent medical history. 4. Discussion of the surgical/procedure course (procedure, reason for surgery, procedure performed). 5. Intraoperative anesthetic management and issue/concerns. 6. Expectations/Plans for the early post-procedure period. 7. Opportunity for questions and acknowledgement of understanding of report from the receiving PACUteam. Zoey Levine Asst documented in this encounter Plan of Treatment Upcoming Encounters Date Type Department Care Team (Late st Contact Info) Description 01/02/2025 8:45 AM CORE STRIPPER Appointment [facility] [address] [place] [address] 01/02/2025 9:30 AM CORE STRIPPER Appoint[address] [facility] OP DRAW STATION [address] [place] [address] 01/02/2025 10:00 AM CORE STRIPPER Office Visit [facility] - GI [address] [place] [address], [place] [address] Dirk Mcdermott MD [address] [place] [address] [place] [address] documented as of this encounter Goals Goal Patient Goal Type Associated Problems Recent Progress Patient-Stated? Author Reduce fat intake. Diet On track( 11:01 AM CORE STRIPPER) No Rupali Pratt, RENATA Note: REDUCED FAT AND REDUCED SODIUM DIET. Safety General On track( 11:01 AM CORE STRIPPER) No Rupali Pratt RN Note: Expected end date: ONGOING Interventions: Wear glasses/hearing aid Keep personal items within easy reach Use some light at night in your room documented as of this encounter Visit Diagnoses Not on filedocumented in this encounter Administered Medications Inactive Administered Medications - up to 3 most recent administrations Medication Order MAR Action Action Date Dose Rate Site 0.9% NaCl infusion Intravenous, CONTINUOUS PRN, Starting on Wed05/17/23 at 0806, Until Wed05/17/23 at 0829, Anesthesia Intra-op $ New Bag/Syringe 05/17/2023 8:06 AM CDT lidocaine HCl (PF) (Xylocaine MPF) 2 % injection Intravenous, PRN, Starting on Wed05/17/23 at 0809, Until Wed05/17/23 at 0829, Anesthesia Intra-op $ Given 05/17/2023 8:09 AM CDT 50 mg propofol (Diprivan) infusion Intravenous, CONTINUOUS PRN, Starting on Wed05/17/23 at 0809, Until Wed05/17/23 at 0829, Anesthesia Intra-op Rate Change 05/17/2023 8:11 AM CDT 200 mcg/kg/min 69.6 mL/hr $ New Bag/Syringe 05/17/2023 8:09 AM CDT 175 mcg/kg/min 60 .9 mL/hr propofol (Diprivan) injection Intravenous, PRN, Starting on Wed05/17/23 at 0809, Until Wed05/17/23 at 0829, Anesthesia Intra-op $ Given 05/17/2023 8:10 AM CDT 100 mg $ Given 05/17/2023 8:09 AM CDT 150 mg documented in this encounter Care Teams Beam Dyer Relationship Specialty Start Date End Date Lee Campbell MD [address] [facility] [place] [address] PCP - General Internal Medicine 04/15/21 Mat Stubbs MD [address] [place] [address] Gastroenterology 04/15/21 documented as of this encounter
--- OUTSIDE RECORDS SUMMARY | 2024-11-26 05:23 | XMS_ITS | Encounter Summary ---
Author Organization [facility] Address [address] [place] [address] Care Team Providers Care Fittings Finisher Name Role Phone Lee Campbell MD Primary Care Provider [phone] Mat Stubbs MD Unavailable [phone] Reason for Referral * Radiology Services (Routine) - Closed Specialty Diagnoses / Procedures Referred By Contac t Referred To Contact Ultrasound Diagnoses Alcoholic cirrhosis of liver without ascites (HCC) Colon cancer screening Procedures US ABDOMEN LIMITED Dirk Mcdermott MD [address] [place] [address] [address] [place] [address] [facility] [address] [place] [address] Referral ID Status Reason Start Date Expiration Date Visits Re quested Visits Authorized [id number] Closed 12/23/2024 12/23/2025 1 1 R PRESS TENDER * Radiology Services (Routine) - Pending Review Specialty Diagnoses / Procedures Referred By Contac t Referred To Contact Gastroenterology Diagnoses Alcoholic cirrhosis of liver without ascites (HCC) Colon cancer screening Procedures US ABDOMEN LIMITED Dirk Mcdermott MD [address] [place] [address] [address] [place] [address] [facility] 3l [address] [facility], [place] [address] Referral ID Status Reason Start Date Expiration Date V isits Requested Visits Authorized [id number] Pending Review 06/22/2024 06/22/2025 1 1 R PRESS TENDER * Procedure (Routine) - Pending Review Specialty Diagnoses / Procedures Referred By Contac t Referred To Contact Gastroenterology Diagnoses Alcoholic cirrhosis of liver without ascites (HCC) Colon cancer screening Procedures ENDOSCOPY, COLON, SCREENING Dirk Mcdermott MD [address] [place] [address] [address] [place] [address] Referral ID Status Reason Start Date Expiration Date V isits Requested Visits Authorized [id number] Pending Review 12/28/2023 12/27/2024 1 1 R PRESS TENDER Reason for Visit * Reason Comments Cirrhosis Encounter Details Date Type Department Care Team (Late st Contact Info) Description 12/28/2023 10:00 AM POWER PRESS TENDER Office Visit [facility] - GI [address] [place] [address], [place] [address] Dirk Mcdermott MD [address] [place] [address] [address] [facility] [place] [address] Alcoholic cirrhosis of liver without ascites (HCC) (Primary Dx); Colon cancer screening; Secondary esophageal varices without bleeding (HCC) Social History Tobacco Use Types Packs/Day Years Used Date Smoking Tobacco: Never Smokeless Tobacco: Never Tobacco Cessation:Counseling Given: Not Answered Alcohol Use Standard Drinks/Week Comments Not Currently 0 (1 standard drink = 0.6 oz pure alcohol) past use 07/11, beer, wine, and hard liquor Sex and Gender Information Value Date Recorded Sex Assigned at Female 12/08/2020 7:15 PM POWER PRESS TENDER Gender Identity Female 12/08/2020 7:15 PM POWER PRESS TENDER Sexual Orientation Straight 12/08/2020 7: 15 PM POWER PRESS TENDER documented as of this encounter Last Filed Vital Signs Vital Sign Reading Time Taken Comments Blood Pressure 132/84 12/28/2023 10:53 AM POWER PRESS TENDER Pulse 61 12/28/2023 10:53 AM POWER PRESS TENDER Temperature 36.6 ??C (97.9 ??F) 12/28/2023 10:[address] Respiratory Rate - - Oxygen Saturation 100% 12/28/2023 10:53 AM POWER PRESS TENDER Inhaled Oxygen Concentration - - Weight 62.1 kg (137 lb) 12/28/2023 10:53 AM POWER PRESS TENDER Height 162.6 cm (5' 4 ) 12/28/2023 10:53 AM POWER PRESS TENDER Body Mass Index 23.52 12/28/2023 10:53 AM POWER PRESS TENDER documented in this encounter Progress Notes * Dirk Mcdermott MD - 12/28/2023 11:27 AM CST Liver Attending Note Referring physician: [...] girth Chief Complaint Patient presents with ??? Cirrhosis Patient Active Problem List: Alcoholic cirrhosis of liver without ascites (CMS-HCC) Colon cancer screening Current Outpatient Medications Medication Sig ??? Hepatitis B Vac Recomb Adj (Heplisav-B) 20 MCG/0.5ML SOLN Inject 0.5 mL into muscle every 30 days Reasons: Hepatitis B ??? levonorgestrel (MIRENA, 52 MG,) 20 MCG/24HR IUD Mirena 20 mcg/24 hours (6 yrs) 52 mg intrauterine device Take by intrauterine route. ??? Multiple Vitamin (MULTIVITAMIN ADULT) TABS Take 1 tablet by mouth ??? ondansetron (Zofran) 4 MG tablet Take 1 (one) tablet by mouth every 6 hours as needed for Nausea/Vomiting ??? polyethylene glycol 3350 (Miralax) 17 GM/SCOOP powder Mix all of powder with 64oz liquid. [id number] of mixture at 5pm the night before colonoscopy. Finish at 4am the day of test No current facility-administered medications for this visit. Past Medical History: Patient denies any new PMH or FH since last visit in the liver clinic with meor my physician podiatrist assistant except what has already been documented in [facility] Social History: Patient denies smoking and drinking Review of Symptoms: Review of Systems Respiratory: Negative for cough and shortness of breath. Cardiovascular: Negative for chest pain and palpitations. I reviewed the past medical history, social history, problem list and medication as documented in the [facility] EHR today. Objective: Physical Examination: Blood pressure 132/84, pulse 61, temperature 97.9 ??F (36.6 ??C), temperature source Oral, height 1.626 m (5' 4 ), weight 62.1 kg (137 lb), SpO2 100%.Body mass index is 23.52 kg/m??. General appearance Well nourished well developed [...] No asterixis Labs/data: Recent Labs Component Name 12/29/22 1134 07/17/22 1302 02/13/22 1258 BUN 11 10 13 [...] >90 >90 >90 Recent Labs Component Name 12/29/22 1134 07/17/22 1302 02/13/22 1258 WBC 5.3 5.7 5.4 HGB 14.1 14.5 14.6 HCT 41.7 43.0 43.2 PLTCOUNT 77* 75* 80* Recent Labs Component Name 12/29/22 1134 07/17/22 1302 04/15/21 1338 INR 1.2 1.1 1.2 02/13/22 12:58 Hepatitis A Virus Antibody Total Positive ! Hepatitis B Surface Antibody Quantitative 0.0 Hepatitis B Virus Surface Antibody Non-reactive Hepatitis B Virus Surface Antigen Non-reactive Hepatitis C Antibody Non-reactive 06/22/23 US liver Liver Visualization Score A: No or minimal limitations. US-1 Negative. Repeat surveillance US in 6 months. Other: 1.Redemonstrated hepatic cirrhosis 2.Splenomegaly 3.Right kidney parenchymal calcification 05/17/23 EGD Impression: ? - Z-line regular, 37 cm from the incisors. ? - Grade I esophageal varices. ? - Chronic gastritis. Biopsied. ? - Normal examined duodenum. Recommendation: ? - Await pathology results. ? - Repeat upper endoscopy in 2 years for ? surveillance. Stomach, biopsy (A): - Antral and oxyntic mucosa, no histopathologic abnormality - No active inflammation or intestinal metaplasia - Negative for Helicobacter pylori on the Helicobacter pylori immunohistochemical stain Labs and test results were reviewed with the patient Impression: 1. Alcohol related liver disease with cirrhosis given low plts after > 6 month abstinence and AST > ALT, US imaging confirmatory of nodular liver and splenomegaly lab w/u negative for Hep A, B,C, encouraged continued and lifelong abstinence, plan continued US for HCC surveillance q 6 months,currently Child A, compensated, uptodate of HCC surveillance negative US today 2. Colon cancer screening due for initial screening reviewed risks and benefits needs to be reordered 3. Small non-bleeding EV noted 04/2023 plan repeat EGD /2024 4. Colon cancer screening never had reviewed risks and benefits will schedule Plan: 1. US labs q 6 months, colonscopy HBV vaccine needed Orders Placed This Encounter Procedures ??? US ABDOMEN LIMITED ??? US ABDOMEN LIMITED ??? CBC WITH DIFFERENTIAL ??? COMPREHENSIVE METABOLIC PANEL ??? ALPHA FETOPROTEIN BLOOD TUMOR MARKER 2. An appointment was scheduled for her to see me in followup in 12 months. Pt instructions: Never drink alcohol again Labs with ultrasound in 6 months and 12 months Hepatitis B vaccine get second vaccine Schedule colonoscopy Dirk Mcdermott MD R PRESS TENDER documented in this encounter Plan of Treatment Upcoming Encounters Date Type Department Care Team (Late st Contact Info) Description 01/02/2025 8:45 AM POWER PRESS TENDER Appointment [facility] [address] [place] [address] 01/02/2025 9:30 AM POWER PRESS TENDER Appointment [facility] OP DRAW STATION [address] [place] [address] 01/02/2025 10:00 AM POWER PRESS TENDER Office Visit [facility] - GI [address] [place] [address], [place] [address] Dirk Mcdermott MD [address] [place] [address] [address] [facility] [place] [address] Scheduled Orders Name Type Priority Associated Diagnoses Orde r Schedule CBC WITH DIFFERENTIAL Lab Routine Alcoholic cirrhosis of liver without ascites (HCC) Colon cancer screening E-6Months for 3 Occurrences starting 12/28/2023 until 01/25/2025 COMPREHENSIVE METABOLIC PANEL Lab Routine Alcoholic cirrhosis of liver without ascites (HCC) Colon cancer screening E-6Months for 3 Occurrences starting 12/28/2023 until 01/25/2025 ALPHA FETOPROTEIN BLOOD TUMOR MARKER Lab Routine Alcoholic cirrhosis of liver without ascites (HCC) Colon cancer screening E-6Months for 3 Occurrences starting 12/28/2023 until 01/25/2025 ENDOSCOPY, COLON, SCREENING GI Routine Alcoholic cirrhosis of liver without ascites (HCC) Colon cancer screening 1 Occurrences starting 12/28/2023 until 12/27/2024 US ABDOMEN LIMITED Imaging Routine Alcoholic cirrhosis of liver without ascites (HCC) Colon cancer screening Expected: 06/22/2024 (Approximate), Expires: 07/20/2025 documented as of this encounter Goals Goal Patient Goal Type Associated Problems Recent Progress Patient-Stated? Author Reduce fat intake. Diet On track( 11:01 AM POWER PRESS TENDER) Rupali Cruz RN Note: REDUCED FAT AND REDUCED SODIUM DIET. Safety General On track( 11:01 AM POWER PRESS TENDER) Rupali Cruz RN Note: Expected end date: [...] limitation. > Dictated by Romel Guzmán MD, (plant operations vice president). IKaruna MD have personally reviewed and interpreted this examination/study. > Interpreting Provider: Karuna Hernandez MD on 07/04/2024 11:46 PM Narrative 07/04/2024 11:46 PM CDT PROCEDURE: ??US ABDOMEN LIMITED, DATE/TIME OF EXAM: ??07/04/2024 10:14 AM, LOCATION ??[facility] INDICATION: K70.30: Alcoholic cirrhosis of liver without [...] DATE/TIME OF EXAM: 07/04/2024 10:14 AM, LOCATION [facility] INDICATION: K70.30: Alcoholic cirrhosis of liver without [...] limitation. > Dictated by Romel Guzmán MD, (plant operations vice president). IKaruna MD have personally reviewed and interpreted this examination/study. > Interpreting Provider: Karuna Hernandez MD on 07/04/2024 11:46 PM Dirk Mcdermott MD US ORDERABLES documented in this encounter Visit Diagnoses Diagnosis Alcoholic cirrhosis of liver without ascites (HCC)- Primary Alcoholic cirrhosis of liver Colon cancer screening Special screening for malignant neoplasms, colon Secondary esophageal varices without bleeding (HCC) Esophageal varices without mention of bleeding in diseases classified elsewhere Alcoholic cirrhosis of liver without ascites (HCC) Alcoholic cirrhosis of liver Colon cancer screening Special screening for malignant neoplasms, colon documented in this encounter Care Teams Fittings Finisher Relationship Specialty Start Date End Date Lee Campbell MD [address] [facility] [place] [address] PCP - General Internal Medicine 04/15/21 Mat Stubbs MD [address] [place] [address] Gastroenterology 04/15/21 documented as of this encounter
--- OUTSIDE RECORDS SUMMARY | 2024-11-26 05:23 | XMS_ITS | Encounter Summary ---
Author Organization [facility] Address [address] [place] [address] Care Team Providers Care Building Inspector Name Role Phone Lee Campbell MD Primary Care Provider [phone] Mat Stubbs MD Unavailable [phone] Encounter Details Date Type Department Care Team (Late Contact Info) Description 07/12/2023 Orders Only [facility] [address] [place] [address] Jayde Wheat, RENATA Social History Tobacco Use Types Packs/Day Years Used Date Smoking Tobacco: Never Smokeless Tobacco: Never Alcohol Use Standard Drinks/Week Comments Not Currently 0 (1 standard drink = 0.6 oz pure alcohol) past use 07/11, beer, wine, and hard liquor Sex and Gender Information Value Date Recorded Sex Assigned at Female 12/08/2020 7:15 PM RN VISITING Gender Identity Female 12/08/2020 7:15 PM RN VISITING Sexual Orientation Straight 12/08/2020 7: 15 PM RN VISITING documented as of this encounter Plan of Treatment Upcoming Encounters Date Type Department Care Team (Late Contact Info) Description 01/02/2025 8:45 AM RN VISITING Appointment [facility] [address] [place] [address] 01/02/2025 9:30 AM RN VISITING Appointment [facility] OP DRAW [facility] [address] [place] [address] 01/02/2025 10:00 AM RN VISITING Office Visit [facility] - [address] [facility] [place] [address] Dirk Mcdermott MD [address] [place] [address] documented as of this encounter Goals Goal Patient Goal Type Associated Problems Recent Progress Patient-Stated? Author Reduce fat intake. Diet On track( 11:01 AM RN VISITING) No Rupali Pratt, RN Note: REDUCED FAT AND REDUCED SODIUM DIET. Safety General On track( 024 11:01 AM RN VISITING) No Rupali Pratt, RN Note: Expected end date: ONGOING Interventions: Wear glasses/hearing aid Keep personal items within easy reach Use some light at night in your room documented as of this encounter Visit Diagnoses Not on filedocumented in this encounter Care Teams Building Inspector Relationship Specialty Start Date End Date Lee Campbell MD [address] [place] [address] PCP - General Internal Medicine 04/15/21 Mat Stubbs MD [address] [place] [address] Gastroenterology 04/15/21 documented as of this encounter
--- OUTSIDE RECORDS SUMMARY | 2024-11-26 05:23 | XMS_ITS | Encounter Summary ---
Author Organization [facility] Address [address] [place] [address] Care Team Providers Care Cord Tire Builder Name Role Phone Lee Campbell MD Primary Care Provider [phone] Mat Stubbs MD Unavailable [phone] Encounter Details Date Type Department Care Team (Latest Contact Info) Description 12/29/2022 Travel Social History Tobacco Use Types Packs/Day Years Used Date Smoking Tobacco: Never Smokeless Tobacco: Never Sex and Gender Information Value Date Recorded Sex Assigned at Female 12/08/2020 7:15 PM ELECTRON BEAM OPERATOR Gender Identity Female 12/08/2020 7:15 PM ELECTRON BEAM OPERATOR Sexual Orientation Straight 12/08/2020 7: 15 PM ELECTRON BEAM OPERATOR documented as of this encounter Plan of Treatment Upcoming Encounters Date Type Department Care Team (Late st Contact Info) Description 01/02/2025 8:45 AM ELECTRON BEAM OPERATOR Appointment [facility] [address] [place] [address] 01/02/2025 9:30 AM ELECTRON BEAM OPERATOR Appointment [facility] OP DRAW [facility] [address] [place] [address] 01/02/2025 10:00 AM ELECTRON BEAM OPERATOR Office Visit [facility] - [place] [address] [place] [address], [place] [id number] Dirk Mcdermott MD [address] [place] [address] [place] [address] documented as of this encounter Goals Goal Patient Goal Type Associated Problems Recent Progress Patient-Stated? Author Reduce fat intake. Diet On track( 024 11:01 AM ELECTRON BEAM OPERATOR) No Rupali Pratt, RN Note: REDUCED FAT AND REDUCED SODIUM DIET. Safety General On track( 024 11:01 AM ELECTRON BEAM OPERATOR) No Rupali Pratt, RN Note: Expected end date: ONGOING Interventions: Wear glasses/hearing aid Keep personal items within easy reach Use some light at night in your room documented as of this encounter Visit Diagnoses Not on filedocumented in this encounter Care Teams Cord Tire Builder Relationship Specialty Start Date End Date Lee Campbell MD [address] [place] [address] PCP - General Internal Medicine 04/15/21 Mat Stubbs MD [address] [place] [address] Gastroenterology 04/15/21 documented as of this encounter
--- OUTSIDE RECORDS SUMMARY | 2024-11-26 05:23 | XMS_ITS | Encounter Summary ---
Author Organization [facility] Address [address] [place] [address] Care Team Providers Care Wire Photo Operator News Name Role Phone Lee Campbell MD Primary Care Provider [phone] Mat Stubbs MD Unavailable [phone] Reason for Visit * Reason Onset Date Comments Pre-op Instructions 07/14/2023 Encounter Details Date Type Department Care Team (Late st Contact Info) Description 07/14/2023 Patient Outreach [facility] [address] [place] [address] Emely Flynn, RN Pre-op Instructions Social History Tobacco Use Types Packs/Day Years Used Date Smoking Tobacco: Never Smokeless Tobacco: Never Alcohol Use Standard Drinks/Week Comments Not Currently 0 (1 standard drink = 0.6 oz pure alcohol) past use 07/11, beer, wine, and hard liquor Sex and Gender Information Value Date Recorded Sex Assigned at Female 12/08/2020 7:15 PM TAX REPRESENTATIVE Gender Identity Female 12/08/2020 7:15 PM TAX REPRESENTATIVE Sexual Orientation Straight 12/08/2020 7: 15 PM TAX REPRESENTATIVE documented as of this encounter Miscellaneous Notes * Telephone Encounter - Emely Flynn, RN - 07/14/2023 10:15 AM CDT Left message with patient to call for prep instructions and to confirm appointment. Informed patient prep instructions were listed in my chart account. Awaiting response and confirmation. documented in this encounter Plan of Treatment Upcoming Encounters Date Type Department Care Team (Late st Contact Info) Description 01/02/2025 8:45 AM TAX REPRESENTATIVE Appointment [facility] [address] [place] [address] 01/02/2025 9:30 AM TAX REPRESENTATIVE Appointment [facility] OP DRAW [facility] [address] [place] [address] 01/02/2025 10:00 AM TAX REPRESENTATIVE Office Visit [facility] - GI [address] [facility], [place] [address] Dirk Mcdermott MD [address] [place] [address] [address] [place] [address] documented as of this encounter Goals Goal Patient Goal Type Associated Problems Recent Progress Patient-Stated? Author Reduce fat intake. Diet On track( 11:01 AM TAX REPRESENTATIVE) No Rupali Pratt, RN Note: REDUCED FAT AND REDUCED SODIUM DIET. Safety General On track( 024 11:01 AM TAX REPRESENTATIVE) No Rupali Pratt, RN Note: Expected end date: ONGOING Interventions: Wear glasses/hearing aid Keep personal items within easy reach Use some light at night in your room documented as of this encounter Visit Diagnoses Not on filedocumented in this encounter Care Teams Wire Photo Operator News Relationship Specialty Start Date End Date Lee Campbell MD [address] [place] [address] PCP - General Internal Medicine 04/15/21 Mat Stubbs MD [address] [facility] [address] [place] [address] Gastroenterology 04/15/21 documented as of this encounter
--- OUTSIDE RECORDS SUMMARY | 2024-11-26 05:23 | XMS_ITS | Encounter Summary ---
Author Organization [facility] Address [address] [facility] [place] [address] Care Team Providers Care Relationship Counselor Name Role Phone Lee Campbell MD Primary Care Provider [phone] Mat Stubbs MD Unavailable [phone] Encounter Details Date Type Department Care Team (Late st Contact Info) Description 05/03/2023 Orders Only [facility] [address] [place] [address] Elian Melgoza, RN Social History Tobacco Use Types Packs/Day Years Used Date Smoking Tobacco: Never Smokeless Tobacco: Never Alcohol Use Standard Drinks/Week Comments Not Currently 0 (1 standard drink = 0.6 oz pure alcohol) past use 07/11, beer, wine, and hard liquor Sex and Gender Information Value Date Recorded Sex Assigned at Female 12/08/2020 7:15 PM ACTUARY Gender Identity Female 12/08/2020 7:15 PM ACTUARY Sexual Orientation Straight 12/08/2020 7: 15 PM ACTUARY documented as of this encounter Plan of Treatment Upcoming Encounters Date Type Department Care Team (Late st Contact Info) Description 01/02/2025 8:45 AM ACTUARY Appointment [facility] [address] [place] [address] 01/02/2025 9:30 AM ACTUARY Appointment [facility] OP DRAW STATION [address] [place] [address] 01/02/2025 10:00 AM ACTUARY Office Visit [facility] - [address] [facility] [place] [address] Dirk Mcdermott MD [address] [place] [address] documented as of this encounter Goals Goal Patient Goal Type Associated Problems Recent Progress Patient-Stated? Author Reduce fat intake. Diet On track( 11:01 AM ACTUARY) No Rupali Pratt, RN Note: REDUCED FAT AND REDUCED SODIUM DIET. Safety General On track( 11:01 AM ACTUARY) No Rupali Pratt, RN Note: Expected end date: ONGOING Interventions: Wear glasses/hearing aid Keep personal items within easy reach Use some light at night in your room documented as of this encounter Visit Diagnoses Not on filedocumented in this encounter Care Teams Relationship Counselor Relationship Specialty Start Date End Date Lee Campbell MD [address] [place] [address] PCP - General Internal Medicine 04/15/21 Mat Stubbs MD [address] [place] [address] Gastroenterology 04/15/21 documented as of this encounter
--- OUTSIDE RECORDS SUMMARY | 2024-11-26 05:23 | XMS_ITS | Encounter Summary ---
Author Organization [facility] Address [address] [facility] [place] [address] Care Team Providers Care Silvering Department Supervisor Name Role Phone Lee Campbell MD Primary Care Provider [phone] Mat Stubbs MD Unavailable [phone] Reason for Referral * Radiology Services (Routine) - Closed Specialty Diagnoses / Procedures Referred By Contac t Referred To Contact Ultrasound Diagnoses Alcoholic cirrhosis of liver without ascites (HCC) Colon cancer screening Procedures US ABDOMEN LIMITED Dirk Mcdermott MD [address] [place] [address] [address] [facility] [place] [address] [facility] [place] [address] Referral ID Status Reason Start Date Expiration Date Visits Re quested Visits Authorized [id number] Closed 01/08/2023 01/08/2024 1 1 Reason for Visit * Radiology Services (Routine) - Closed Specialty Diagnoses / Procedures Referred By Contac t Referred To Contact Ultrasound Diagnoses Alcoholic cirrhosis of liver without ascites (HCC) Colon cancer screening Procedures US ABDOMEN LIMITED Dirk Mcdermott MD [address] [place] [address] [address] [place] [address] [facility] [address] [place] [address] Referral ID Status Reason Start Date Expiration Date Visits Re quested Visits Authorized [id number] Closed 01/08/2023 01/08/2024 1 1 Encounter Details Date Type Department Care Team (Latest Contact Info) Description 06/22/2023 8:29 AM CDT - 06/22/2023 11:59 PM CDT Hospital Encounter [facility] [address] [place] [address] Dirk Mcdermott MD [address] [place] [address] Discharge Disposition: Home or Self Care Social History Tobacco Use Types Packs/Day Years Used Date Smoking Tobacco: Never Smokeless Tobacco: Never Alcohol Use Standard Drinks/Week Comments Not Currently 0 (1 standard drink = 0.6 oz pure alcohol) past use 07/11, beer, wine, and hard liquor Sex and Gender Information Value Date Recorded Sex Assigned at Female 12/08/2020 7:15 PM MATTRESS INSPECTOR Gender Identity Female 12/08/2020 7:15 PM MATTRESS INSPECTOR Sexual Orientation Straight 12/08/2020 7: 15 PM MATTRESS INSPECTOR documented as of this encounter Medications at [...] 05/19/2023 07/12/2023 documented as of this encounter Plan of Treatment Upcoming Encounters Date Type Department Care Team (Late st Contact Info) Description 01/02/2025 8:45 AM MATTRESS INSPECTOR Appointment [facility] [address] [place] [address] 01/02/2025 9:30 AM MATTRESS INSPECTOR Appointment [facility] OP [facility]RAW [facility] [address] [place] [address] 01/02/2025 10:00 AM MATTRESS INSPECTOR Office Visit [facility] - GI [address] [facility], [place] [address] Dirk Mcdermott MD [address] [place] [address] [address] [facility] [place] [address] documented as of this encounter Goals Goal Patient Goal Type Associated Problems Recent Progress Patient-Stated? Author Reduce fat intake. Diet On track( 11:01 AM MATTRESS INSPECTOR) No Rupali Pratt, RN Note: REDUCED FAT AND REDUCED SODIUM DIET. Safety General On track( 11:01 AM MATTRESS INSPECTOR) Rupali Cruz, RN Note: Expected end date: ONGOING Interventions: Wear glasses/hearing aid Keep personal items within easy reach Use some light at night in your room documented as of this encounter Procedures Procedure Name Priority Date/Time Associated Diagnosis Comments US ABDOMEN LIMITED Routine 06/22/2023 9: 11 AM CDT Alcoholic cirrhosis of liver without ascites (HCC) Colon cancer screening documented in this encounter Results * US ABDOMEN LIMITED (06/22/2023 9:11 AM [...] (resident). > Dictated by Daniele Arce DO (Metabolic Specialist) 06/22/2023 9:07 AM I, Tu Hester MD have personally reviewed and interpreted this examination/study. > Interpreting Provider: Tu Hester MD on 06/22/2023 11:27 AM Narrative 06/22/2023 11:27 AM CDT PROCEDURE: ??US ABDOMEN LIMITED, DATE/TIME OF EXAM: ??06/22/2023 8:29 AM, LOCATION ??[facility] INDICATION: K70.30: Alcoholic cirrhosis of [...] DATE/TIME OF EXAM: 06/22/2023 8:29 AM, LOCATION [facility] INDICATION: K70.30: Alcoholic cirrhosis of [...] (resident). > Dictated by Daniele Arce DO (Metabolic Specialist) 06/22/2023 9:07 AM Tu Peguero MD have personally reviewed and interpreted this examination/study. > Interpreting Provider: Tu Hester MD on 06/22/2023 11:27 AM Dirk Mcdermott MD US ORDERABLES documented in this encounter Visit Diagnoses Diagnosis Alcoholic cirrhosis of liver without ascites (HCC) Alcoholic cirrhosis of liver Colon cancer screening Special screening for malignant neoplasms, colon documented in this encounter Care Teams Silvering Department Supervisor Relationship Specialty Start Date End Date Lee Campbell MD [address] [place] [address] PCP - General Internal Medicine 04/15/21 Mat Stubbs MD [address] [facility] [address] [place] [address] Gastroenterology 04/15/21 documented as of this encounter
--- OUTSIDE RECORDS SUMMARY | 2024-11-26 05:23 | XMS_ITS | Encounter Summary ---
Author Organization [facility] Address [address] [place] [address] Care Team Providers Care Housekeeper Head Name Role Phone Lee Campbell MD Primary Care Provider [phone] Mat Stubbs MD Unavailable [phone] Encounter Details Date Type Department Care Team (Late st Contact Info) Description 07/12/2023 Orders Only [facility] [address] [place] [address] Madeline Herrera, RN Social History Tobacco Use Types Packs/Day Years Used Date Smoking Tobacco: Never Smokeless Tobacco: Never Alcohol Use Standard Drinks/Week Comments Not Currently 0 (1 standard drink = 0.6 oz pure alcohol) past use 07/11, beer, wine, and hard liquor Sex and Gender Information Value Date Recorded Sex Assigned at Female 12/08/2020 7:15 PM MACHINE ROOM ENGINEER Gender Identity Female 12/08/2020 7:15 PM MACHINE ROOM ENGINEER Sexual Orientation Straight 12/08/2020 7: 15 PM MACHINE ROOM ENGINEER documented as of this encounter Plan of Treatment Upcoming Encounters Date Type Department Care Team (Late st Contact Info) Description 01/02/2025 8:45 AM MACHINE ROOM ENGINEER Appointment [facility] [address] [place] [address] 01/02/2025 9:30 AM MACHINE ROOM ENGINEER Appointment [facility] OP DRAW STATION [address] [place] [address] 01/02/2025 10:00 AM MACHINE ROOM ENGINEER Office Visit [facility] - [address] [facility] [place] [address] Dirk Mcderomtt MD [address] [place] [address] documented as of this encounter Goals Goal Patient Goal Type Associated Problems Recent Progress Patient-Stated? Author Reduce fat intake. Diet On track( 11:01 AM MACHINE ROOM ENGINEER) No Rupali Pratt, RN Note: REDUCED FAT AND REDUCED SODIUM DIET. Safety General On track( 11:01 AM MACHINE ROOM ENGINEER) No Rupali Pratt, RN Note: Expected end date: ONGOING Interventions: Wear glasses/hearing aid Keep personal items within easy reach Use some light at night in your room documented as of this encounter Visit Diagnoses Not on filedocumented in this encounter Care Teams Housekeeper Head Relationship Specialty Start Date End Date Lee Campbell MD [address] [place] [address] PCP - General Internal Medicine 04/15/21 Mat Stubbs MD [address] [place] [address] Gastroenterology 04/15/21 documented as of this encounter
--- OUTSIDE RECORDS SUMMARY | 2024-11-26 05:23 | XMS_ITS | Encounter Summary ---
Author Organization [facility] Address [address] [place] [address] Care Team Providers Care Skeiner Name Role Phone Lee Campbell MD Primary Care Provider [phone] Mat Stubbs MD Unavailable [phone] Reason for Referral * Radiology Services (Routine) - Closed Specialty Diagnoses / Procedures Referred By Contac t Referred To Contact Ultrasound Diagnoses Alcoholic cirrhosis of liver without ascites (HCC) Portal hypertension (HCC) Elevated bilirubin Procedures US ABDOMEN LIMITED Lani Hernandez PA-C [address] [facility] [address] [facility] [place] [address] [facility] Us [address] [place] [address] Referral ID Status Reason Start Date Expiration Date Visits Re quested Visits Authorized [id number] Closed 07/17/2022 07/17/2023 1 1 LOG LIBRARY ASSISTANT Reason for Visit * Radiology Services (Routine) - Closed Specialty Diagnoses / Procedures Referred By Contac t Referred To Contact Ultrasound Diagnoses Alcoholic cirrhosis of liver without ascites (HCC) Portal hypertension (HCC) Elevated bilirubin Procedures US ABDOMEN LIMITED Lani Hernandez PA-C [address] [facility] [address]L [place] [address] [facility] Us [address] [place] [address] Referral ID Status Reason Start Date Expiration Date Visits Re quested Visits Authorized [id number] Closed 07/17/2022 07/17/2023 1 1 Encounter Details Date Type Department Care Team (Latest Contact Info) Description 01/22/2023 10:08 AM CATALOG LIBRARY ASSISTANT - 01/22/2023 11:59 PM CATALOG LIBRARY ASSISTANT Hospital Encounter [facility] US [address] [place] [address] Lani Hernandez PA-C [address] [facility] [address] [place] [address] Discharge Disposition: Home or Self Care Social History Tobacco Use Types Packs/Day Years Used Date Smoking Tobacco: Never Smokeless Tobacco: Never Alcohol Use Standard Drinks/Week Comments Not Currently 0 (1 standard drink = 0.6 oz pure alcohol) past use 07/11, beer, wine, and hard liquor Sex and Gender Information Value Date Recorded Sex Assigned at Female 12/08/2020 7:15 PM CATALOG LIBRARY ASSISTANT Gender Identity Female 12/08/2020 7:15 PM CATALOG LIBRARY ASSISTANT Sexual Orientation Straight 12/08/2020 7: 15 PM CATALOG LIBRARY ASSISTANT documented as of this encounter Medications at Time of Discharge Medication Sig Dispensed Refills Start Date End Date levonorgestrel (MIRENA, 52 MG,) 20 MCG/24HR IUD Mirena 20 mcg/24 hours (6 yrs) 52 mg intrauterine device Take by intrauterine route. Multiple Vitamin (MULTIVITAMIN ADULT) TABS Take 1 tablet by mouth Hepatitis B Vac Recomb Adj (Heplisav-B) 20 MCG/0.5ML SOLNIndications:Hepati tis B Inject 0.5 mL into muscle every 30 days Reasons: Hepatitis B 0.5 mL 1 01/08/2023 05/14/2023 documented as of this encounter Plan of Treatment Upcoming Encounters Date Type Department Care Team (Late st Contact Info) Description 01/02/2025 8:45 AM CATALOG LIBRARY ASSISTANT Appointment [facility] US [address] [place] [address] 01/02/2025 9:30 AM CATALOG LIBRARY ASSISTANT Appointment [facility] LAB OP DRAW STATION [address] [place] [address] 01/02/2025 10:00 AM CATALOG LIBRARY ASSISTANT Office Visit [facility] - GI [address] [facility], [place] [address] Dirk Mcdermott MD [address] [place] [address] [address] [facility] [place] [address] documented as of this encounter Goals Goal Patient Goal Type Associated Problems Recent Progress Patient-Stated? Author Reduce fat intake. Diet On track( 11:01 AM CATALOG LIBRARY ASSISTANT) No Rupali Pratt, RN Note: REDUCED FAT AND REDUCED SODIUM DIET. Safety General On track( 11:01 AM CATALOG LIBRARY ASSISTANT) Rupali Cruz, RN Note: Expected end date: ONGOING Interventions: Wear glasses/hearing aid Keep personal items within easy reach Use some light at night in your room documented as of this encounter Procedures Procedure Name Priority Date/Time Associated Diagnosis Comments US ABDOMEN LIMITED Routine 01/22/2023 10 :47 AM CATALOG LIBRARY ASSISTANT Alcoholic cirrhosis of liver without ascites (HCC) Portal hypertension (HCC) Elevated bilirubin documented in this encounter Results * US ABDOMEN LIMITED (01/22/2023 10:47 AM CATALOG LIBRARY ASSISTANT) Anatomical Region Laterality Modality Abdomen Ultrasound 01/22/2023 10:4 3 AM CATALOG LIBRARY ASSISTANT Impressions 01/22/2023 2:11 PM CATALOG LIBRARY ASSISTANT Impression: 1. Hepatic cirrhosis with sequela of portal hypertension, including splenomegaly. 2. Liver Visualization Score B: Moderate limitations. 3. US-1 Negative. Repeat surveillance US in 6 months. 4. Right renal nephrolithiasis. REFERENCE: US LI-RADS categories: US Category: ??US [...] for focal liver lesions. Report drafted by Herrera Kiser MD (resident). > Dictated by Herrera Kiser MD (Occupational Health Nurse Supervisor) 01/22/2023 11:51 AM I, Tu Hester MD have personally reviewed and interpreted this examination/study. > Interpreting Provider: Tu Hester MD on 01/22/2023 2:11 PM Narrative 01/22/2023 2:11 PM CATALOG LIBRARY ASSISTANT PROCEDURE: ??US ABDOMEN LIMITED, DATE/TIME OF EXAM: ??01/22/2023 10:48 AM, LOCATION ??[facility] INDICATION: K70.30: Alcoholic cirrhosis of liver without ascites (CMS/HCC) K76.6: Portal hypertension (CMS/HCC) R17: Elevated bilirubin COMPARISON: Abdomen ultrasound 01/21/2022. Findings Liver Visualization Score: Moderate limitations in liver visualization Liver Morphology: The [...] negative. Ascites: No ascites is present. Spleen: Splenomegaly measuring 16.6 cm Pancreas: The visible pancreas is normal in echogenicity. Right Kidney: The right kidney measures 10.2 cm in length. Limited views of the right kidney reveal no evidence of hydronephrosis. Renal calculi seen near the superior pole of the right kidney. No discrete mass identified. Procedure Note Tu Hester MD - 01/22/2023 PROCEDURE: US ABDOMEN LIMITED, DATE/TIME OF EXAM: 01/22/2023 10:48 AM, LOCATION [facility] INDICATION: K70.30: Alcoholic cirrhosis of liver without ascites (CMS/HCC) K76.6: Portal hypertension (CMS/HCC) R17: Elevated bilirubin COMPARISON: Abdomen ultrasound 01/21/2022. Findings Liver Visualization Score: Moderate limitations in liver visualization Liver Morphology: The [...] negative. Ascites: No ascites is present. Spleen: Splenomegaly measuring 16.6 cm Pancreas: The visible pancreas is normal in echogenicity. Right Kidney: The right kidney measures 10.2 cm in length. Limited views of the right kidney reveal no evidence of hydronephrosis. Renal calculi seen near the superior pole of the right kidney. No discrete mass identified. Impression: 1. Hepatic cirrhosis with sequela of portal hypertension, including splenomegaly. 2. Liver Visualization Score B: Moderate limitations. 3. US-1 Negative. Repeat surveillance US in 6 months. 4. Right renal nephrolithiasis. REFERENCE: US LI-RADS categories: US Category: US [...] sensitivityfor focal liver lesions. Report drafted by Herrera Kiser MD (resident). > Dictated by Herrera Kiser MD (Occupational Health Nurse Supervisor) 01/22/2023 11:51 AM I, Tu Hester MD have personally reviewed and interpreted this examination/study. > Interpreting Provider: Tu Hester MD on 01/22/2023 2:11 PM Lani Hernandez PA-C US ORDERABLES documented in this encounter Visit Diagnoses Diagnosis Alcoholic cirrhosis of liver without ascites (HCC) Alcoholic cirrhosis of liver Portal hypertension (HCC) Portal hypertension Elevated bilirubin Disorders of bilirubin excretion documented in this encounter Care Teams Skeiner Relationship Specialty Start Date End Date Lee Campbell MD [address] [place] [address] PCP - General Internal Medicine 04/15/21 Mat Stubbs MD [address] [place], [place] [id number] Gastroenterology 04/15/21 documented as of this encounter
--- OUTSIDE RECORDS SUMMARY | 2024-11-26 05:23 | XMS_ITS | Encounter Summary ---
Author Organization [facility] Address [address] [facility] [place] [address] Care Team Providers Care Utilization Engineer Name Role Phone Lee Campbell MD Primary Care Provider [phone] Mat Stubbs MD Unavailable [phone] Encounter Details Date Type Department Care Team (Latest Contact Info) Description 01/22/2023 Travel Social History Tobacco Use Types Packs/Day Years Used Date Smoking Tobacco: Never Smokeless Tobacco: Never Alcohol Use Standard Drinks/Week Comments Not Currently 0 (1 standard drink = 0.6 oz pure alcohol) past use 07/11, beer, wine, and hard liquor Sex and Gender Information Value Date Recorded Sex Assigned at Female 12/08/2020 7:15 PM MENS LOCKER ROOM ATTENDANT Gender Identity Female 12/08/2020 7:15 PM MENS LOCKER ROOM ATTENDANT Sexual Orientation Straight 12/08/2020 7: 15 PM MENS LOCKER ROOM ATTENDANT documented as of this encounter Plan of Treatment Upcoming Encounters Date Type Department Care Team (Late st Contact Info) Description 01/02/2025 8:45 AM MENS LOCKER ROOM ATTENDANT Appointment [facility] [address] [place] [address] 01/02/2025 9:30 AM MENS LOCKER ROOM ATTENDANT Appointment [facility] LAB OP DRAW STATION [address] [place] [address] 01/02/2025 10:00 AM MENS LOCKER ROOM ATTENDANT Office Visit [facility] - GI [address] [place] [address], [place] [address] Dirk Mcdermott MD [address] [place] [address] [place] [address] documented as of this encounter Goals Goal Patient Goal Type Associated Problems Recent Progress Patient-Stated? Author Reduce fat intake. Diet On track( 11:01 AM MENS LOCKER ROOM ATTENDANT) Rupali Cruz, RN Note: REDUCED FAT AND REDUCED SODIUM DIET. Safety General On track( 11:01 AM MENS LOCKER ROOM ATTENDANT) Rupali Cruz RN Note: Expected end date: ONGOING Interventions: Wear glasses/hearing aid Keep personal items within easy reach Use some light at night in your room documented as of this encounter Visit Diagnoses Not on filedocumented in this encounter Care Teams Utilization Engineer Relationship Specialty Start Date End Date Lee Campbell MD [address] [place] [address] PCP - General Internal Medicine 04/15/21 Mat Stubbs MD [address] [place] [address] Gastroenterology 04/15/21 documented as of this encounter
--- OUTSIDE RECORDS SUMMARY | 2024-11-26 05:23 | XMS_ITS | Referral Summary ---
Author Organization [facility] Address [address] [place] [address] Care Team Providers Care Welt Butter Hand Name Role Phone Lee Campbell MD Primary Care Provider [phone] Mat Stubbs MD Unavailable [phone] Source Comments [facility],non-owned Affiliates and Associated Physician Practices is amultiple site organization consisting of ambulatory clinics and hospital sitesin [place], [place], [place] and [place]. This disclosure is being madepursuant to the Care Everywhere program and may not contain all information available regarding this patient. Last updated 18.[facility] Allergies No known active allergies Medications * [...] 08/2021 Immunizations Name Administration Dates Next Due Michael Mensah primary monoval ent 12+ yr 0.3mL Purple cap 02/09/2021,01/19/2021 Social History Tobacco Use Types Packs/Day Years Used Date Smoking Tobacco: Never Smokeless Tobacco: Never Tobacco Cessation:Counseling Given: Not Answered Alcohol Use Standard Drinks/Week Comments Not Currently 0 (1 standard drink = 0.6 oz pure alcohol) past use 07/11, beer, wine, and hard liquor Sex and Gender Information Value Date Recorded Sex Assigned at Female 12/08/2020 7:15 PM PRINTING SALES REPRESENTATIVE Gender Identity Female 12/08/2020 7:15 PM PRINTING SALES REPRESENTATIVE Sexual Orientation Straight 12/08/2020 7: 15 PM PRINTING SALES REPRESENTATIVE Last Filed Vital Signs Vital Sign Reading Time Taken Comments Blood Pressure 132/84 12/28/2023 10:53 AM PRINTING SALES REPRESENTATIVE Pulse 61 12/28/2023 10:53 AM PRINTING SALES REPRESENTATIVE Temperature 36.6 ??C (97.9 ??F) 12/28/2023 10:53 AM C Respiratory Rate 21 05/17/2023 9:00 AM CDT Oxygen Saturation 100% 12/28/2023 10:53 AM PRINTING SALES REPRESENTATIVE Inhaled Oxygen Concentration - - Weight 62.1 kg (137 lb) 12/28/2023 10:53 AM PRINTING SALES REPRESENTATIVE Height 162.6 cm (5' 4 ) 12/28/2023 10:53 AM PRINTING SALES REPRESENTATIVE Body Mass Index 23.52 12/28/2023 10:53 AM PRINTING SALES REPRESENTATIVE Plan of Treatment Upcoming Encounters Date Type Department Care Team (Late st Contact Info) Description 01/02/2025 8:45 AM PRINTING SALES REPRESENTATIVE Appointment [facility] [address] [place] [address] 01/02/2025 9:30 AM PRINTING SALES REPRESENTATIVE Appointment [facility] LAB OP DRAW STATION [address] [place] [address] 01/02/2025 10:00 AM PRINTING SALES REPRESENTATIVE Office Visit [facility] - GI [address] [facility], [place] [address] Dirk Mcdermott MD [facility] [place] [address] Goals Goal Patient Goal Type Associated Problems Recent Progress Patient-Stated? Author Reduce fat intake. Diet On track( 11:01 AM PRINTING SALES REPRESENTATIVE) No Rupali Pratt RN Note: REDUCED FAT AND REDUCED SODIUM DIET. Safety General On track( 11:01 AM PRINTING SALES REPRESENTATIVE) No Rupali Pratt, RN Note: Expected [...] Procedure Code(s): ? --- Professional --- ? 43138, Esophagogastroduod enoscopy, flexible, transoral; with biopsy, ? 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 All rights reserved. The codes documented in this report are preliminary and upon managing director atlas review may be revised to meet current compliance requirements. Dirk Mcdermott MD 05/17/2023 8:31:34 AM This report has been signed electronically. Note Initiated On: 05/17/2023 7:59 AM Number of Addenda: 0 ? [facility] ? [address] [place] [address] [facility] 05/17/2023 7:59 AM CDT Dirk Mcdermott MD GI PROCEDURE ORDERAB LES [facility] * HEPATITIS C AB SCREEN RFLX NAAT QUANT (02/13/2022 12:58 PM CDT) Hepatitis C Antibody Non-react shaylee Non-reac tive 02/13/2022 2:52 PM CDT [facility] Comment:Hepatitis C Antibody screen indicates no [...] Mcdermott MD LAB - CHEMISTRY ADRIEN MARTINEZ [facility] Organization Address City/State/ZIP Co de Phone Number [facility] [address] [place] [address], [facility] [phone] from Last 3 Months or Most Recently Relevant to Health Maintenance Care Teams Welt Butter Hand Relationship Specialty Start Date End Date Lee Campbell MD [address] [facility] [place] [address] PCP - General Internal Medicine 04/15/21 Mat Stubbs MD [address] [place] [address] Gastroenterology 04/15/21
--- OUTSIDE RECORDS SUMMARY | 2024-11-26 05:23 | XMS_ITS | Encounter Summary ---
Author Organization [facility] Address [address] [facility] [place] [address] Care Team Providers Care Shipping Helper Name Role Phone Lee Campbell MD Primary Care Provider [phone] Mat Stubbs MD Unavailable [phone] Encounter Details Date Type Department Care Team (Latest Contact Info) Description 06/22/2023 Travel Social History Tobacco Use Types Packs/Day Years Used Date Smoking Tobacco: Never Smokeless Tobacco: Never Alcohol Use Standard Drinks/Week Comments Not Currently 0 (1 standard drink = 0.6 oz pure alcohol) past use 07/11, beer, wine, and hard liquor Sex and Gender Information Value Date Recorded Sex Assigned at Female 12/08/2020 7:15 PM EXECUTIVE SECRETARY Gender Identity Female 12/08/2020 7:15 PM EXECUTIVE SECRETARY Sexual Orientation Straight 12/08/2020 7: 15 PM EXECUTIVE SECRETARY documented as of this encounter Plan of Treatment Upcoming Encounters Date Type Department Care Team (Late st Contact Info) Description 01/02/2025 8:45 AM EXECUTIVE SECRETARY Appointment [facility] [address] [place] [address] 01/02/2025 9:30 AM EXECUTIVE SECRETARY Appointment [facility] OP DRAW STATION [address] [place] [address] 01/02/2025 10:00 AM EXECUTIVE SECRETARY Office Visit [facility] - GI [address] [place] [address], [place] [address] Dirk Mcdermott MD [address] [place] [address] [place] [address] documented as of this encounter Goals Goal Patient Goal Type Associated Problems Recent Progress Patient-Stated? Author Reduce fat intake. Diet On track( 11:01 AM EXECUTIVE SECRETARY) Rupali Cruz, RN Note: REDUCED FAT AND REDUCED SODIUM DIET. Safety General On track( 11:01 AM EXECUTIVE SECRETARY) Rupali Cruz RN Note: Expected end date: ONGOING Interventions: Wear glasses/hearing aid Keep personal items within easy reach Use some light at night in your room documented as of this encounter Visit Diagnoses Not on filedocumented in this encounter Care Teams Shipping Helper Relationship Specialty Start Date End Date Lee Campbell MD [address] [place] [address] PCP - General Internal Medicine 04/15/21 Mat Stubbs MD [address] [place] [address] Gastroenterology 04/15/21 documented as of this encounter
--- OUTSIDE RECORDS SUMMARY | 2024-11-26 05:23 | XMS_ITS | Encounter Summary ---
Author Organization [facility] Address [address] [facility] [place] [address] Care Team Providers Care Slot Editor Name Role Phone Lee Campbell MD Primary Care Provider [phone] Mat Stubbs MD Unavailable [phone] Encounter Details Date Type Department Care Team (Latest Contact Info) Description 12/29/2022 11:13 AM SENIOR PRINCIPAL PROCESS ENGINEER - 12/29/2022 11:59 PM SENIOR PRINCIPAL PROCESS ENGINEER Hospital Encounter [facility] [address] [place] [id number] Discharge Disposition: Home or Self Care Social History Tobacco Use Types Packs/Day Years Used Date Smoking Tobacco: Never Smokeless Tobacco: Never Sex and Gender Information Value Date Recorded Sex Assigned at Female 12/08/2020 7:15 PM SENIOR PRINCIPAL PROCESS ENGINEER Gender Identity Female 12/08/2020 7:15 PM SENIOR PRINCIPAL PROCESS ENGINEER Sexual Orientation Straight 12/08/2020 7: 15 PM SENIOR PRINCIPAL PROCESS ENGINEER documented as of this encounter Medications at Time of Discharge Medication Sig Dispensed Refills Start Date End Date levonorgestrel (MIRENA, 52 MG,) 20 MCG/24HR IUD Mirena 20 mcg/24 hours (6 yrs) 52 mg intrauterine device Take by intrauterine route. Multiple Vitamin (MULTIVITAMIN ADULT) TABS Take 1 tablet by mouth documented as of this encounter Plan of Treatment Upcoming Encounters Date Type Department Care Team (Late st Contact Info) Description 01/02/2025 8:45 AM SENIOR PRINCIPAL PROCESS ENGINEER Appointment [facility] [address] [place] [address] 01/02/2025 9:30 AM SENIOR PRINCIPAL PROCESS ENGINEER Appointment [facility] [address] [place] [address] 01/02/2025 10:00 AM SENIOR PRINCIPAL PROCESS ENGINEER Office [facility] - [place] [address] [facility], [place] [address] Dirk Mcdermott MD [address] [place] [address] [address] [facility] [place] [address] documented as of this encounter Goals Goal Patient Goal Type Associated Problems Recent Progress Patient-Stated? Author Reduce fat intake. Diet On track( 11:01 AM SENIOR PRINCIPAL PROCESS ENGINEER) No Rupali Pratt, RN Note: REDUCED FAT AND REDUCED SODIUM DIET. Safety General On track( 11:01 AM SENIOR PRINCIPAL PROCESS ENGINEER) No Rupali Pratt, RN Note: Expected end date: ONGOING Interventions: Wear glasses/hearing aid Keep personal items within easy reach Use some light at night in your room documented as of this encounter Procedures Procedure Name Priority Date/Time Associated Diagnosis Comments PT-INR [facility] Routine 12/29/2022 11:34 AM SENIOR PRINCIPAL PROCESS ENGINEER Alcoholic cirrhosis of liver without ascites (HCC) Portal hypertension (HCC) Elevated bilirubin CBC W AUTO DIFFERENTIAL Routine 12/29/2022 11:34 AM SENIOR PRINCIPAL PROCESS ENGINEER Alcoholic cirrhosis of liver without ascites (HCC) Portal hypertension (HCC) Elevated bilirubin BASIC METABOLIC PANEL (CALCIUM TOTAL) Routine 12/29/2022 11:34 AM SENIOR PRINCIPAL PROCESS ENGINEER Alcoholic cirrhosis of liver without ascites (HCC) Portal hypertension (HCC) Elevated bilirubin HEPATIC FUNCTION PANEL Routine 12/29/2022 11:34 AM SENIOR PRINCIPAL PROCESS ENGINEER Alcoholic cirrhosis of liver without ascites (HCC) Portal hypertension (HCC) Elevated bilirubin documented in this encounter Results * PT-INR [facility] (12/29/2022 11:34 AM SENIOR PRINCIPAL PROCESS ENGINEER) PT 14.7 12.1 - 14.8 Seconds 12/29/2022 12:15 PM SENIOR PRINCIPAL PROCESS ENGINEER [facility] INR 1.2 See Comment 12/29/2022 12:15 PM [facility] Comment:The suggested therap eutic range for standard coumadin (warfarin) therapy is an INR of 2.0-3.0. For high-risk patients (Mechanical Mitral Valve Prosthesis, etc.), the suggested prophylactic therapeutic range is an INR of 2.5-3.5. Blood BLOOD SPECIMEN / Unknown Lab Venipuncture / Unknown 12/29/2022 11:34 AM SENIOR PRINCIPAL PROCESS ENGINEER 12/29/2022 11:55 AM SENIOR PRINCIPAL PROCESS ENGINEER Lani Hernandez PA-C LAB - COAGULATI ON ORDERABLES [facility] [address] [place] [address], [facility] [phone] * (ABNORMAL) CBC WITH DIFFERENTIAL (12/29/2022 11:34 AM SENIOR PRINCIPAL PROCESS ENGINEER) WBC 5.3 3.5 - 10.5 10? 3 /uL 12/29/2022 12:13 PM [facility] RBC 4.82 3.80 - 5.20 10? 6 /uL 12/29/2022 12:13 PM [facility] Hemoglobin 14.1 12.0 - 15.6 g/dL 12/29/2022 12:13 PM [facility] Hematocrit 41.7 35.0 - 45.0 % 12/29/2022 12:13 PM [facility] MCV 86.5 80.7 - 98.3 fL 12/29/2022 12:13 PM [facility] MCH 29.3 26.7 - 34.0 pg 12/29/2022 12:13 PM [facility] MCHC 33.8 30.8 - 35.9 g/dL 12/29/2022 12:13 PM [facility] RDW-SD 38.7 36.0 - 50.0 fL 12/29/2022 12:13 PM [facility] RDW-CV 12.2 11.2 - 14.8 % 12/29/2022 12:13 PM [facility] Platelet Count 77(L) 150 - 400 10? 3 /uL 12/29/2022 12:13 PM [facility] MPV 12.4 9.4 - 12.9 fL 12/29/2022 12:13 PM [facility] nRBC Absolute 0.00 0 10? 3 /uL 12/29/2022 12:13 PM [facility] nRBC Auto 0.0 0 /100 WBC 12/29/2022 12:13 PM [facility] Neutrophils % 67.1 35.0 - 70.0 % 12/29/2022 12:13 PM [facility] Lymphocytes % 23.0 20.0 - 43.0 % 12/29/2022 12:13 PM [facility] Monocytes % 7.5 5.0 - 13.0 % 12/29/2022 12:13 PM [facility] Eosinophils % 1.3 0.0 - 6.0 % 12/29/2022 12:13 PM [facility] Basophil % 0.7 0.0 - 2.0 % 12/29/2022 12:13 PM [facility] Neutrophils Absolute 3.58 1.60 - 7.00 10? 3 /uL 12/29/2022 12:13 PM [facility] Lymphocyte Absolute 1.23 1.10 - 3.90 10? 3 /uL 12/29/2022 12:13 PM [facility] Monocytes Absolute 0.40 0.26 - 1.07 10? 3 /uL 12/29/2022 12:13 PM [facility] Eosinophils Absolute 0.07 0.00 - 0.47 10? 3 /uL 12/29/2022 12:13 PM [facility] Basophils Absolute 0.04 0.00 - 0.08 10? 3 /uL 12/29/2022 12:13 PM [facility] Immature Granulocytes % 0.4 0.0 - 1.0 % 12/29/2022 12:13 PM [facility] Immature Granulocytes Absolute 0.02 12/29/2022 12:13 PM [facility] Blood BLOOD SPECIMEN / Unknown Lab Venipuncture / Unknown 12/29/2022 11:34 AM SENIOR PRINCIPAL PROCESS ENGINEER 12/29/2022 11:56 AM SENIOR PRINCIPAL PROCESS ENGINEER Lani Hernandez PA-C LAB - HEMATOLOG Y ORDERABLES [facility] [address] [place] [address], [facility] [phone] * (ABNORMAL) BASIC METABOLIC PANEL (CALCIUM TOTAL) (12/29/2022 11:34 AM [facility]) BUN 11 7 - 26 mg/dL 12/29/2022 12:20 PM [facility] Creatinine 0.56 0.56 - 0.96 mg/dL 12/29/2022 12:20 PM [facility] Sodium 138 136 - 145 mmol/L 12/29/2022 12:20 PM [facility] Potassium 4.0 3.5 - 4.5 mmol/L 12/29/2022 12:20 PM [facility] Chloride 105 98 - 107 mmol/L 12/29/2022 12:20 PM [facility] CO2 28 22 - 29 mmol/L 12/29/2022 12:20 PM [facility] Glucose 68(L) 70 - 115 mg/dL 12/29/2022 12:20 PM [facility] Calcium 9.7 8.4 - 10.2 mg/dL 12/29/2022 12:20 PM [facility] Anion Gap 9 8 - 18 12/29/2022 12:20 PM [facility] BUN/Creatinine Ratio 20 7 - 23 12/29/2022 12:20 PM [facility] Osmolality Calculated 284 270 - 300 mOsm/kg 12/29/2022 12:20 PM [facility] eGFR by CKD-EPI >90 >=90 mL/min/1.7 3 m2 12/29/2022 12:20 PM [facility] Blood BLOOD SPECIMEN / Unknown Lab Venipuncture / Unknown 12/29/2022 11:34 AM SENIOR PRINCIPAL PROCESS ENGINEER 12/29/2022 11:55 AM [facility] Lani Hernandez PA-C LAB - CHEMISTRY ORDERABLES [facility] [address] [place] [address], [facility] [phone] * HEPATIC FUNCTION PANEL (12/29/2022 11:34 AM SENIOR PRINCIPAL PROCESS ENGINEER) Protein Total 7.4 6.0 - 8.3 g/dL 023 12:20 PM [facility] Albumin 4.3 3.4 - 5.0 g/dL 12/29/2022 12:20 PM [facility] Bilirubin Total 1.1 0.2 - 1.2 mg/dL 05/2023 12:20 PM [facility] Bilirubin Conjugated 0.4 0.1 - 0.5 mg/dL 12/29/2022 12:20 PM [facility] Bilirubin Unconjugated 0.7 Unconjugated Bilirubin is a calculated value: Reference ranges have not been established. mg/dL 12/29/2022 12:20 PM [facility] Alkaline Phosphatase 72 40 - 150 U/L 12/29/2022 12:20 PM [facility] ALT 25 5 - 55 U/L 12/29/2022 12:20 PM [facility] AST 32 5 - 34 U/L 12/29/2022 12:20 PM [facility] Albumin/Globulin Ratio 1.4 1.1 - 2.3 12/29/2022 12:20 PM [facility] Blood BLOOD SPECIMEN / Unknown Lab Venipuncture / Unknown 12/29/2022 11:34 AM SENIOR PRINCIPAL PROCESS ENGINEER 12/29/2022 11:55 AM [facility] Lani Hernandez PA-C LAB - CHEMISTRY ORDERABLES Performing Organization Address City/[facility] Co de Phone Number [facility] [address] [place] [address], [facility] [phone] documented in this encounter Visit Diagnoses Diagnosis Alcoholic cirrhosis of liver without ascites (HCC) Alcoholic cirrhosis of liver Portal hypertension (HCC) Portal hypertension Elevated bilirubin Disorders of bilirubin excretion documented in this encounter Care Teams Slot Editor Relationship Specialty Start Date End Date Lee Campbell MD [address] [facility] [place] [address] PCP - General Internal Medicine 04/15/21 Mat Stubbs MD [address] [place] [address] Gastroenterology 04/15/21 documented as of this encounter
--- OUTSIDE RECORDS SUMMARY | 2024-11-26 05:23 | XMS_ITS | Encounter Summary ---
Author Organization [facility] Address [address] [facility] [place] [address] Care Team Providers Care Distribution System Operator Name Role Phone Lee Campbell MD Primary Care Provider [phone] Mat Stubbs MD Unavailable [phone] Reason for Visit * Reason Onset Date Comments MEDICATION REFILL 01/01/2024 Encounter Details Date Type Department Care Team (Late Contact Info) Description 01/01/2024 Refill [facility] [address] [place] [address] [facility] [place] [address] MEDICATION REFILL Social History Tobacco Use Types Packs/Day Years Used Date Smoking Tobacco: Never Smokeless Tobacco: Never Alcohol Use Standard Drinks/Week Comments Not Currently 0 (1 standard drink = 0.6 oz pure alcohol) past use 07/11, beer, wine, and hard liquor Sex and Gender Information Value Date Recorded Sex Assigned at Female 12/08/2020 7:15 PM POTTERY DECORATOR Gender Identity Female 12/08/2020 7:15 PM POTTERY DECORATOR Sexual Orientation Straight 12/08/2020 7: 15 PM POTTERY DECORATOR documented as of this encounter Plan of Treatment Upcoming Encounters Date Type Department Care Team (Late Contact Info) Description 01/02/2025 8:45 AM POTTERY DECORATOR Appointment [facility] [address] [place] [address] 01/02/2025 9:30 AM POTTERY DECORATOR Appointment [facility] [address] [place] [address] 01/02/2025 10:00 AM POTTERY DECORATOR Office Visit [facility] - GI [address] [facility], [place] [address] [facility] [address] [place] [address] documented as of this encounter Goals Goal Patient Goal Type Associated Problems Recent Progress Patient-Stated? Author Reduce fat intake. Diet On track( 024 11:01 AM POTTERY DECORATOR) No Rupali Pratt, RN Note: REDUCED FAT AND REDUCED SODIUM DIET. Safety General On track( 024 11:01 AM POTTERY DECORATOR) No Rupali Pratt, RN Note: Expected end date: ONGOING Interventions: Wear glasses/hearing aid Keep personal items within easy reach Use some light at night in your room documented as of this encounter Visit Diagnoses Not on filedocumented in this encounter Care Teams Distribution System Operator Relationship Specialty Start Date End Date Lee Campbell MD [address] [facility] [place] [address] PCP - General Internal Medicine 04/15/21 Mat Stubbs MD [address] [place] [address] Gastroenterology 04/15/21 documented as of this encounter
--- OUTSIDE RECORDS SUMMARY | 2024-11-26 05:24 | XMS_ITS | Encounter Summary ---
Author Organization [facility] Address [address] [place] [address] Care Team Providers Care Automatic Casting Machine Operator Name Role Phone Unavailable Primary Care Provider Unavailabl e Encounter Details Date Type Department Care Team (Late st Contact Info) Description 11/16/2020 Lab Requisition [facility] Community Testing [facility] [address] [place] [address] Pryor, [place] [address] [place] [address] Social History Tobacco Use Types Packs/Day Years Used Date Smoking Tobacco: Never Assessed Comments Unknown Sex and Gender Information Value Date Recorded Sex Assigned at Not on file Legal Sex Female 1:20 PM METAL ROOM DENTAL TECHNICIAN Gender Identity Not on file Sexual Orientation Not on file documented as of this encounter Plan of Treatment Not on file documented as of this encounter Procedures Procedure Name Priority Date/Time Associated Diagnosis Comments SARS-COV-2 PCR [facility] ONLY Routine 11/16/2020 12:41 PM METAL ROOM DENTAL TECHNICIAN documented in this encounter Visit Diagnoses Not on filedocumented in this encounter
--- OUTSIDE RECORDS SUMMARY | 2024-11-26 05:24 | XMS_ITS | Encounter Summary ---
Author Organization [facility] Address [address] [facility] [address] [place] [address] Care Team Providers Care Academic Computing Director Name Role Phone Lee Campbell MD Primary Care Provider [phone] Mat Stubbs MD Unavailable [phone] Reason for Referral * Radiology Services (Routine) - Closed Specialty Diagnoses / Procedures Referred By Contac t Referred To Contact Ultrasound Diagnoses Alcoholic cirrhosis of liver without ascites (HCC) Procedures US ABDOMEN LIMITED Dirk Mcdermott MD [address] [place] [address] [address] [place] [address] [address] Referral ID Status Reason Start Date Expiration Date Visits Re quested Visits Authorized [id number] Closed 01/13/2022 01/13/2023 1 1 CAMP Reason for Visit * Reason Comments Abnormal Liver Alcoholic liver dise ase Cirrhosis Encounter Details Date Type Department Care Team (Late st Contact Info) Description 01/13/2022 3:30 PM COOK CAMP Office Visit [facility] - [place] [address] [place] [address], [place] [address] Dirk Mcdermott MD [address] [place] [address] [address] [place] [address] Alcoholic cirrhosis of liver without ascites (HCC) (Primary Dx); Alcoholic liver disease, unspecified (HCC); Alcohol use, unspecified with other alcohol-induced disorder (HCC) Social History Tobacco Use Types Packs/Day Years Used Date Smoking Tobacco: Never Smokeless Tobacco: Never Sex and Gender Information Value Date Recorded Sex Assigned at Female 12/08/2020 7:15 PM COOK CAMP Gender Identity Female 12/08/2020 7:15 PM COOK CAMP Sexual Orientation Straight 12/08/2020 7: 15 PM COOK CAMP COVID-19 Exposure Response Date Recorded In the last month, have you been in contact with someone who was confirmed or suspected to have Coronavirus / COVID-19? No / Unsure 02/13/2022 12:50 PM CDT documented as of this encounter Last Filed Vital Signs Vital Sign Reading Time Taken Comments Blood Pressure 139/84 01/13/2022 3:06 PM COOK CAMP Pulse 85 01/13/2022 3:06 PM COOK CAMP Temperature 36.6 ??C (97.8 ??F) 01/13/2022 3:06 PM CS T Respiratory Rate 16 01/13/2022 3:06 PM COOK CAMP Oxygen Saturation 100% 01/13/2022 3:06 PM COOK CAMP Inhaled Oxygen Concentration - - Weight 61.7 kg (136 lb) 01/13/2022 3:06 PM COOK CAMP Height 162.6 cm (5' 4 ) 01/13/2022 3:06 PM COOK CAMP Body Mass Index 23.34 01/13/2022 3:06 PM COOK CAMP documented in this encounter Patient Instructions * Patient Instructions* Dirk Mcdermott MD - 01/13/2022 3:47 PM COOK CAMP Labs at [facility] soon Ultrasound at [facility] documented in this encounter Progress Notes * Dirk Mcdermott MD - 01/13/2022 2:58 PM CST Liver Attending Note Referring physician: Enoc [...] and supplements except as already listed. Subjective: No etoh since June 2020 [employer] Denies increased abd girth AMS or GI bleeding Chief Complaint Patient presents with ??? Abnormal Liver Alcoholic liver disease ??? Cirrhosis Patient Active Problem List: Alcoholic cirrhosis of liver without ascites Current Outpatient Medications Medication Sig ??? levonorgestrel (MIRENA, 52 MG,) 20 MCG/24HR IUD Mirena 20 mcg/24 hours (6 yrs) 52 mg intrauterine device Take by intrauterine route. ??? Multiple Vitamin (MULTIVITAMIN ADULT) TABS Take 1 tablet by mouth No current facility-administered medications for this visit. Past Medical History: Patient denies any new PMH or FH since last visit in the liver clinic with meor my physician surgical services assistant except what has already been documented in [facility] Social History: Patient denies smoking and drinking Review of Symptoms: Review of Systems Respiratory: Negative for cough and shortness of breath. Cardiovascular: Negative for chest pain and palpitations. I reviewed the past medical history, social history, problem list and medication as documented in the [facility] EHR today. Objective: Physical Examination: Blood pressure 139/84, pulse 85, temperature 97.8 ??F (36.6 ??C), resp. rate 16, height 1.626 m (5'4 ), weight 61.7 kg (136 lb), SpO2 100 %.Body mass index is 23.34 kg/m??. General appearance Well nourished well developed [...] No asterixis Labs/data: Recent Labs Component Name 04/15/21 1338 BUN 8 CREATININE 0.53* NA 141 POTASSIUM 3.5 CL 106 CO2 25 GLUCOSE 98 CALCIUM 9.3 PROT 7.7 ALB 4.2 TBILI 1.6* ALKPHOS 95 ALT 33 AST 52* ANIONGAP 14 BCR 15 OSMOLALITY 290 AGRATIO 1.2 EGFR >90 Recent Labs Component Name 04/15/21 1338 WBC 5.7 HGB 13.2 HCT 39.2 PLTCOUNT 73* Recent Labs Component Name 04/15/21 1338 INR 1.2 Labs and test results were reviewed with the patient Impression: 1. Alcohol related liver disease with probable cirrhosis given low plts after > 6 month abstinence and AST > ALT, prior evaluation and imaging still not received thus will send basic lab w/u and confirm liver tests still doing well r/o associated viral hepatitis, encouraged lifelong abstinence, US for HCC surveillance Plan: 1. Orders Placed This Encounter Procedures ??? US ABDOMEN LIMITED ??? CERULOPLASMIN ??? CBC WITH DIFFERENTIAL ??? BASIC METABOLIC PANEL (CALCIUM TOTAL) ??? HEPATIC FUNCTION PANEL ??? HEPATITIS A ANTIBODY ??? HEPATITIS B SURFACE ANTIBODY ??? HEPATITIS B SURFACE ANTIGEN W RFLX CONFIRMATION ??? HEPATITIS C AB W/RFLX TO HCV RNA QN PCR 2. An appointment was scheduled for her to see me in followup in 6 months. Dirk Mcdermott MD documented in this encounter Plan of Treatment Upcoming Encounters Date Type Department Care Team (Late st Contact Info) Description 01/02/2025 8:45 AM COOK CAMP Appointment [facility] US [address] [place] [address] 01/02/2025 9:30 AM COOK CAMP Appointment [facility] LAB OP DRAW STATION [address] [place] [address] 01/02/2025 10:00 AM COOK [facility]AMP Office Visit [facility] - GI [address] [facility], [place] [address] Dirk Mcdermott MD [address] [place] [address] Scheduled Orders Name Type Priority Associated Diagnoses Orde r Schedule HEPATITIS A ANTIBODY Lab Routine Alcoholic cirrhosis of liver without ascites (HCC) Ordered: 01/13/2022 HEPATITIS B SURFACE ANTIBODY Lab Routine Alcoholic cirrhosis of liver without ascites (HCC) Ordered: 01/13/2022 HEPATITIS C AB W/RFLX TO HCV RNA QN PCR Lab Routine Alcoholic cirrhosis of liver without ascites (HCC) Ordered: 01/13/2022 documented as of this encounter Goals Goal Patient Goal Type Associated Problems Recent Progress Patient-Stated? Author Reduce fat intake. Diet On track( 11:01 AM COOK CAMP) No Rupali Pratt, RN Note: REDUCED FAT AND REDUCED SODIUM DIET. Safety General On track( 024 11:01 AM COOK CAMP) No Rupali Pratt RN Note: Expected end date: ONGOING Interventions: Wear glasses/hearing aid Keep personal items within easy reach Use some light at night in your room documented as of this encounter Procedures Procedure Name Priority Date/Time Associated Diagnosis Comments CBC W AUTO DIFFERENTIAL Routine 02/13/2022 12:58 PM CDT Alcoholic cirrhosis of liver without ascites (HCC) documented in this encounter Results * (ABNORMAL) CBC WITH DIFFERENTIAL (02/13/2022 12:58 PM CDT) WBC 5.4 3.5 - 10.5 10? 3 /uL 02/13/2022 3:08 PM [facility] RBC 5.04 3.80 - 5.20 10? 6 /uL 02/13/2022 3:08 PM [facility] Hemoglobin 14.6 12.0 - 15.6 g/dL 02/13/2022 3:08 PM [facility] Hematocrit 43.2 35.0 - 45.0 % 02/13/2022 3:08 PM [facility] MCV 85.7 80.7 - 98.3 fL 02/13/2022 3:08 PM [facility] MCH 29.0 26.7 - 34.0 pg 02/13/2022 3:08 PM [facility] MCHC 33.8 30.8 - 35.9 g/dL 02/13/2022 3:08 PM [facility] Platelet Count 80(L) 150 - 400 10? 3 /uL 02/13/2022 3:08 PM [facility] Comment: Checked by peripheral smear. Occasional large platelets seen. RDW-SD 39.3 36.0 - 50.0 fL 02/13/2022 3:08 PM [facility] RDW-CV 12.6 11.2 - 14.8 % 02/13/2022 3:08 PM [facility] MPV 13.0(H) 9.4 - 12.9 fL 02/13/2022 3:08 PM [facility] nRBC Absolute 0.00 0 10? 3 /uL 02/13/2022 3:08 PM [facility] nRBC Auto 0.0 0 /100 WBC 02/13/2022 3:08 PM [facility] Neutrophils % 63.2 35.0 - 70.0 % 02/13/2022 3:08 PM [facility] Lymphocytes % 27.4 20.0 - 43.0 % 02/13/2022 3:08 PM [facility] Monocytes % 6.6 5.0 - 13.0 % 02/13/2022 3:08 PM [facility] Eosinophils % 1.5 0.0 - 6.0 % 02/13/2022 3:08 PM [facility] Basophil % 0.9 0.0 - 2.0 % 02/13/2022 3:08 PM [facility] Neutrophils Absolute 3.4 1.6 - 7.0 10? 3 /uL 02/13/2022 3:08 PM [facility] Lymphocyte Absolute 1.5 1.1 - 3.9 10? 3 /uL 02/13/2022 3:08 PM [facility] Monocytes Absolute 0.36 0.26 - 1.07 10? 3 /uL 02/13/2022 3:08 PM [facility] Eosinophils Absolute 0.08 0.00 - 0.47 10? 3 /uL 02/13/2022 3:08 PM CDT [facility] Basophils Absolute 0.05 0.00 - 0.08 10? 3 /uL 02/13/2022 3:08 PM CDT [facility] Immature Granulocytes % 0.4 0.0 - 1.0 % 02/13/2022 3:08 PM CDT [facility] Immature Granulocytes Absolute 0.02 02/13/2022 3:08 PM CDT [facility] Blood BLOOD SPECIMEN / Unknown Lab Venipuncture / Unknown 02/13/2022 12:58 PM CDT 02/13/2022 2:03 PM CDT Dirk Mcdermott MD LAB - HEMATOLOGY ORD ERABLES [facility] [address] [place] [address], [facility] [phone] * US ABDOMEN LIMITED (01/21/2022 3:52 PM C[facility]) Anatomical Region Laterality Modality Abdomen Ultrasound 01/21/2022 4:24 PM [facility] Impressions 01/21/2022 4:27 PM [facility] IMPRESSION: 1. Cirrhotic liver morphology, with no focal lesion observed. 2. Splenomegaly. This report was electronically signed by LEROY SALOMON ??on 01/21/2022 4:27 PM . Narrative 01/21/2022 4:27 PM [facility] EXAMINATION: US ABDOMEN LIMITED HISTORY: K70.30: Alcoholic cirrhosis of liver without ascites COMPARISON: None FINDINGS: The visualized pancreas is normal. The liver [...] 17.3 cm. There is no free fluid. Procedure Note Leroy Salomon MD - 01/21/2022 EXAMINATION: US ABDOMEN LIMITED HISTORY: K70.30: Alcoholic cirrhosis of liver without ascites COMPARISON: None FINDINGS: The visualized pancreas is normal. The liver is mildly heterogeneouswith nodular contour and without discrete lesion. The hepatic and portalveins are patent. The gallbladder is normal size with no stones or wall thickening. There is no evidence of biliary dilatation. The common bile duct measures 3 mm. The right kidney measures 11.3 cm and shows no hydronephrosis. There is splenomegaly at 17.3 cm. There is no freefluid. IMPRESSION: 1. Cirrhotic liver morphology, with no focal lesion observed. 2. Splenomegaly. This report was electronically signed by LEROY SALOMON on :27 PM . Dirk Mcdermott MD ORDERABLES documented in this encounter Visit Diagnoses Diagnosis Alcoholic cirrhosis of liver without ascites (HCC)- Primary Alcoholic cirrhosis of liver Alcoholic liver disease, unspecified (HCC) Alcohol use, unspecified with other alcohol-induced disorder (HCC) Alcoholic cirrhosis of liver without ascites (HCC) Alcoholic cirrhosis of liver documented in this encounter Care Teams Academic Computing Director Relationship Specialty Start Date End Date Lee Campbell MD [address] [place] [address] PCP - General Internal Medicine 04/15/21 Mat Stubbs MD [address] [place] [address] Gastroenterology 04/15/21 documented as of this encounter
--- OUTSIDE RECORDS SUMMARY | 2024-11-26 05:24 | XMS_ITS | Encounter Summary ---
Author Organization [facility] Address [address] [place] [address] Care Team Providers Care [employer] Safety Program Coordinator Name Role Phone Lee Campbell MD Primary Care Provider [phone] Mat Stubbs MD Unavailable [phone] Encounter Details Date Type Department Care Team (Latest Contact Info) Description 04/15/2021 1:30 PM CDT - 04/15/2021 11:59 PM CDT Hospital Encounter [facility] LAB OP DRAW STATION [address] [place] [phone] Lee Campbell MD [address] [facility] [address] [place] [address] Discharge Disposition: Home or Self Care Social History Tobacco Use Types Packs/Day Years Used Date Smoking Tobacco: Never Smokeless Tobacco: Never Sex and Gender Information Value Date Recorded Sex Assigned at Female 12/08/2020 7:15 PM GAMING CAGE WORKER Gender Identity Female 12/08/2020 7:15 PM GAMING CAGE WORKER Sexual Orientation Straight 12/08/2020 7: 15 PM GAMING CAGE WORKER COVID-19 Exposure Response Date Recorded In the last month, have you been in contact with someone who was confirmed or suspected to have Coronavirus / COVID-19? No / Unsure 04/15/2021 1:29 PM CDT documented as of this encounter Medications at Time of Discharge Medication Sig Dispensed Refills Start Date End Date levonorgestrel (MIRENA, 52 MG,) 20 MCG/24HR IUD Mirena 20 mcg/24 hours (6 yrs) 52 mg intrauterine device Take by intrauterine route. documented as of this encounter Plan of Treatment Upcoming Encounters Date Type Department Care Team (Late st Contact Info) Description 01/02/2025 8:45 AM GAMING CAGE WORKER Appointment [facility] US [address] [place] [address] 01/02/2025 9:30 AM GAMING CAGE WORKER Appointment [facility] LAB OP DRAW STATION [address] [place] [address] 01/02/2025 10:00 AM GAMING CAGE WORKER Office Visit [facility] [place] [address] [place] [address], [place] [address] Dirk Mcdermott MD [address] [place] [address] [address] [place] [address] documented as of this encounter Procedures Procedure Name Priority Date/Time Associated Diagnosis Comments PT-INR [facility] Routine 04/15/2021 1:38 PM CDT Alcoholic liver disease (HCC) CBC W AUTO DIFFERENTIAL Routine 04/15/2021 1:38 PM CDT Alcoholic liver disease (HCC) COMPREHENSIVE METABOLIC PANEL Routine 04/15/2021 1:38 PM CDT Alcoholic liver disease (HCC) documented in this encounter Results * PT-INR [facility] (04/15/2021 1:38 PM CDT) PT 14.8 12.1 - 14.8 Seconds 04/15/2021 2:57 PM CDT [facility] INR 1.2 See Comment 04/15/2021 2:57 PM T [facility] Comment:The suggested therap eutic range for standard coumadin (warfarin) therapy is an INR of 2.0-3.0. For high-risk patients (Mechanical Mitral Valve Prosthesis, etc.), the suggested prophylactic therapeutic range is an INR of 2.5-3.5. Blood BLOOD SPECIMEN / Unknown Lab Venipuncture / Unknown 04/15/2021 1:38 PM CDT 04/15/2021 2:47 PM CDT Dirk Mcdermott MD LAB - COAGULATION OR DERABLES [facility] [address] [place] [address], [facility] [phone] * (ABNORMAL) COMPREHENSIVE METABOLIC PANEL (04/15/2021 1:38 PM CDT) BUN 8 7 - 26 mg/dL 04/15/2021 3:05 PM [facility] Creatinine 0.53(L) 0.56 - 0.96 mg/dL 04/15/2021 3:05 PM [facility] Sodium 141 136 - 145 mmol/L 04/15/2021 3:05 PM [facility] Potassium 3.5 3.5 - 4.5 mmol/L 04/15/2021 3:05 PM [facility] Chloride 106 98 - 107 mmol/L 04/15/2021 3:05 PM [facility] CO2 25 22 - 29 mmol/L 04/15/2021 3:05 PM [facility] Glucose 98 70 - 115 mg/dL 04/15/2021 3:05 PM [facility] Calcium 9.3 8.4 - 10.2 mg/dL 04/15/2021 3:05 PM [facility] Protein Total 7.7 6.0 - 8.3 g/dL 04/15/2021 3:05 PM [facility] Albumin 4.2 3.4 - 5.0 g/dL 04/15/2021 3:05 PM [facility] Bilirubin Total 1.6(H) 0.2 - 1.2 mg/dL 04/15/2021 3:05 PM [facility] Alkaline Phosphatase 95 40 - 150 U/L 04/15/2021 3:05 PM [facility] ALT 33 5 - 55 U/L 04/15/2021 3:05 PM [facility] AST 52(H) 5 - 34 U/L 04/15/2021 3:05 PM [facility] Anion Gap 14 8 - 18 04/15/2021 3:05 PM [facility] BUN/Creatinine Ratio 15 7 - 23 04/15/2021 3:05 PM [facility] Osmolality Calculated 290 270 - 300 mOsm/kg 04/15/2021 3:05 PM [facility] Albumin/Globulin Ratio 1.2 1.1 - 2.3 04/15/2021 3:05 PM [facility] eGFR by CKD-EPI >90 >=90 mL/min/1.7 3 m2 04/15/2021 3:05 PM [facility] Blood BLOOD SPECIMEN / Unknown Lab Venipuncture / Unknown 04/15/2021 1:38 PM CDT 04/15/2021 2:17 PM CDT Dirk Mcdermott MD LAB - CHEMISTRY ADRIEN MARTINEZ [facility] [address] [place] [address], [facility] [phone] * (ABNORMAL) CBC WITH DIFFERENTIAL (04/15/2021 1:38 PM CDT) WBC 5.7 3.5 - 10.5 10? 3 /uL 04/15/2021 3:20 PM [facility] RBC 4.38 3.80 - 5.20 10? 6 /uL 04/15/2021 3:20 PM [facility] Hemoglobin 13.2 12.0 - 15.6 g/dL 04/15/2021 3:20 PM [facility] Hematocrit 39.2 35.0 - 45.0 % 04/15/2021 3:20 PM [facility] MCV 89.5 80.7 - 98.3 fL 04/15/2021 3:20 PM [facility] MCH 30.1 26.7 - 34.0 pg 04/15/2021 3:20 PM [facility] MCHC 33.7 30.8 - 35.9 g/dL 04/15/2021 3:20 PM [facility] Platelet Count 73(L) 150 - 400 10? 3 /uL 04/15/2021 3:20 PM CDT [facility] Comment: Checked by peripheral smear. This is an appended report. ??These results have been appended to a previously preliminary verified report. RDW-SD 43.2 36.0 - 50.0 fL 04/15/2021 3:20 PM [facility] RDW-CV 13.1 11.2 - 14.8 % 04/15/2021 3:20 PM [facility] MPV 12.0 9.4 - 12.9 fL 04/15/2021 3:20 PM [facility] nRBC Absolute 0.00 0 10? 3 /uL 04/15/2021 3:20 PM [facility] nRBC Auto 0.0 0 /100 WBC 04/15/2021 3:20 PM [facility] Neutrophils % 72.8(H) 35.0 - 70.0 % 04/15/2021 3:20 PM [facility] Lymphocytes % 16.6(L) 20.0 - 43.0 % 04/15/2021 3:20 PM [facility] Monocytes % 9.0 5.0 - 13.0 % 04/15/2021 3:20 PM [facility] Eosinophils % 0.7 0.0 - 6.0 % 04/15/2021 3:20 PM [facility] Basophil % 0.5 0.0 - 2.0 % 04/15/2021 3:20 PM [facility] Neutrophils Absolute 4.1 1.6 - 7.0 10? 3 /uL 04/15/2021 3:20 PM [facility] Lymphocyte Absolute 0.9(L) 1.1 - 3.9 10? 3 /uL 04/15/2021 3:20 PM [facility] Monocytes Absolute 0.51 0.26 - 1.07 10? 3 /uL 04/15/2021 3:20 PM [facility] Eosinophils Absolute 0.04 0.00 - 0.47 10? 3 /uL 04/15/2021 3:20 PM [facility] Basophils Absolute 0.03 0.00 - 0.08 10? 3 /uL 04/15/2021 3:20 PM [facility] Immature Granulocytes % 0.4 0.0 - 1.0 % 04/15/2021 3:20 PM CDT [facility] Immature Granulocytes Absolute 0.02 04/15/2021 3:20 PM CDT [facility] Blood BLOOD SPECIMEN / Unknown Lab Venipuncture / Unknown 04/15/2021 1:38 PM CDT 04/15/2021 2:14 PM CDT Dirk Mcdermott MD LAB - HEMATOLOGY ORD ERABLES Performing Organization Address [facility] Co de Phone Number [facility] [address] [place] [address], [facility] [phone] documented in this encounter Visit Diagnoses Diagnosis Alcoholic liver disease (HCC) Alcoholic liver damage, unspecified documented in this encounter Care Teams [employer] Safety Program Coordinator Relationship Specialty Start Date End Date Lee Campbell MD [address] [place] [address] PCP - General Internal Medicine 04/15/21 Mat Stubbs MD [address] [place] [address] Gastroenterology 04/15/21 documented as of this encounter
--- OUTSIDE RECORDS SUMMARY | 2024-11-26 05:24 | XMS_ITS | Encounter Summary ---
Author Organization [facility] Address [address] [place] [address] Care Team Providers Care Ship Mate Name Role Phone Unavailable Primary Care Provider Unavailabl e Encounter Details Date Type Department Care Team (Late st Contact Info) Description 11/12/2020 2:00 PM STRONG NITRIC OPERATOR Rapid Evaluation [place] [facility] Community Testing [address] [address] Social History Tobacco Use Types Packs/Day Years Used Date Smoking Tobacco: Never Assessed Comments Unknown Sex and Gender Information Value Date Recorded Sex Assigned at Not on file Legal Sex Female 1:20 PM STRONG NITRIC OPERATOR Gender Identity Not on file Sexual Orientation Not on file documented as of this encounter Plan of Treatment Not on file documented as of this encounter Visit Diagnoses Not on filedocumented in this encounter
--- OUTSIDE RECORDS SUMMARY | 2024-11-26 05:24 | XMS_ITS | Encounter Summary ---
Author Organization [facility] Address [address] [facility] [place] [address] Care Team Providers Care Card Hand Name Role Phone Lee Campbell MD Primary Care Provider Mat Stubbs MD Unavailable [phone] Encounter Details Date Type Department Care Team (Late st Contact Info) Description 07/10/2021 Orders Only [facility] - GI [address] [place] [address] Yuliet Wallis, RENATA Alcoholic cirrhosis of liver without ascites (HCC) Social History Tobacco Use Types Packs/Day Years Used Date Smoking Tobacco: Never Smokeless Tobacco: Never Sex and Gender Information Value Date Recorded Sex Assigned at Female 12/08/2020 7:15 PM KINESIOLOGY PROFESSOR Gender Identity Female 12/08/2020 7:15 PM KINESIOLOGY PROFESSOR Sexual Orientation Straight 12/08/2020 7: 15 PM KINESIOLOGY PROFESSOR documented as of this encounter Plan of Treatment Upcoming Encounters Date Type Department Care Team (Late Contact Info) Description 01/02/2025 8:45 AM KINESIOLOGY PROFESSOR Appointment [facility] [address] [place] [address] 01/02/2025 9:30 AM KINESIOLOGY PROFESSOR Appointment [facility] LAB OP DRAW STATION [address] [place] [address] 01/02/2025 10:00 AM KINESIOLOGY PROFESSOR Office Visit [facility] - [place] [address] [place] [address] Dirk Mcdermott MD [address] [place] [address] documented as of this encounter Visit Diagnoses Diagnosis Alcoholic cirrhosis of liver without ascites (HCC)- Primary Alcoholic cirrhosis of liver documented in this encounter Care Teams Card Hand Relationship Specialty Start Date End Date Lee Campbell MD [address] [place] [address] PCP - General Internal Medicine 04/15/21 Mat Stubbs MD [address] [facility] [address] [place] [address] Gastroenterology 04/15/21 documented as of this encounter
--- OUTSIDE RECORDS SUMMARY | 2024-11-26 05:24 | XMS_ITS | Encounter Summary ---
Author Organization [facility] Address [address] [place] [address] Care Team Providers Care Mud Tank Operator Name Role Phone Unavailable Primary Care Provider Unavailabl e Encounter Details Date Type Department Care Team (Late st Contact Info) Description 12/05/2021 Lab Requisition [facility] Community Testing [facility] [address] [place] [address] Cristofer Davidson MD [address] [place] [address] [address] [place], [place] [id number] Social History Tobacco Use Types Packs/Day Years Used Date Smoking Tobacco: Never Assessed Comments Unknown Sex and Gender Information Value Date Recorded Sex Assigned at Not on file Legal Sex Female 1:[address] Gender Identity Not on file Sexual Orientation Not on file documented as of this encounter Plan of Treatment Not on file documented as of this encounter Procedures Procedure Name Priority Date/Time Associated Diagnosis Comments SARS-COV-2 PCR [facility] ONLY Routine 12/05/2021 10:10 [address] documented in this encounter Visit Diagnoses Not on filedocumented in this encounter
--- OUTSIDE RECORDS SUMMARY | 2024-11-26 05:24 | XMS_ITS | Encounter Summary ---
Author Organization [facility] Address [address] [place] [place] [address] Care Team Providers Care Photographic Lithographer Name Role Phone Lee Campbell MD Primary Care Provider [phone] Mat Stubbs MD Unavailable [phone] Encounter Details Date Type Department Care Team (Latest Contact Info) Description 02/04/2022 Travel Social History Tobacco Use Types Packs/Day Years Used Date Smoking Tobacco: Never Smokeless Tobacco: Never Sex and Gender Information Value Date Recorded Sex Assigned at Female 12/08/2020 7:15 PM MORTGAGE LOAN ASSISTANT Gender Identity Female 12/08/2020 7:15 PM MORTGAGE LOAN ASSISTANT Sexual Orientation Straight 12/08/2020 7: 15 PM MORTGAGE LOAN ASSISTANT COVID-19 Exposure Response Date Recorded In the last month, have you been in contact with someone who was confirmed or suspected to have Coronavirus / COVID-19? No / Unsure 02/04/2022 1:01 PM CDT documented as of this encounter Plan of Treatment Upcoming Encounters Date Type Department Care Team (Late st Contact Info) Description 01/02/2025 8:45 AM MORTGAGE LOAN ASSISTANT Appointment [facility] [address] [place] [address] 01/02/2025 9:30 AM MORTGAGE LOAN ASSISTANT Appointment [facility] [address] [place] [address] 01/02/2025 10:00 AM MORTGAGE LOAN ASSISTANT Office Visit [facility] - [address] [facility], [place] [address] Dirk Mcdermott MD [address] [place] [address] documented as of this encounter Goals Goal Patient Goal Type Associated Problems Recent Progress Patient-Stated? Author Reduce fat intake. Diet On track( 11:01 AM MORTGAGE LOAN ASSISTANT) No Rupali Pratt, RN Note: REDUCED FAT AND REDUCED SODIUM DIET. Safety General On track( 11:01 AM MORTGAGE LOAN ASSISTANT) Rupali Cruz, RN Note: Expected end date: ONGOING Interventions: Wear glasses/hearing aid Keep personal items within easy reach Use some light at night in your room documented as of this encounter Visit Diagnoses Not on filedocumented in this encounter Care Teams Photographic Lithographer Relationship Specialty Start Date End Date Lee Campbell MD [address] [facility] [place] [address] PCP - General Internal Medicine 04/15/21 Mat Stubbs MD [address] [place] [address] Gastroenterology 04/15/21 documented as of this encounter
--- OUTSIDE RECORDS SUMMARY | 2024-11-26 05:24 | XMS_ITS | Encounter Summary ---
Author Organization [facility] Address [address] [place] [address] Care Team Providers Care Principal Gifts Officer Name Role Phone Lee Campbell MD Primary Care Provider [phone] Mat Stubbs MD Unavailable [phone] Encounter Details Date Type Department Care Team (Late Contact Info) Description 02/04/2022 Orders Only [facility] - [address] [facility], [place] [address] Dean Jaramillo, RN Alcoholic cirrhosis of liver without ascites (HCC) Social History Tobacco Use Types Packs/Day Years Used Date Smoking Tobacco: Never Smokeless Tobacco: Never Sex and Gender Information Value Date Recorded Sex Assigned at Female 12/08/2020 7:15 PM OLIVE GROWER Gender Identity Female 12/08/2020 7:15 PM OLIVE GROWER Sexual Orientation Straight 12/08/2020 7: 15 PM OLIVE GROWER COVID-19 Exposure Response Date Recorded In the last month, have you been in contact with someone who was confirmed or suspected to have Coronavirus / COVID-19? No / Unsure 02/04/2022 1:01 PM CDT documented as of this encounter Plan of Treatment Upcoming Encounters Date Type Department Care Team (Late Contact Info) Description 01/02/2025 8:45 AM OLIVE GROWER Appointment [facility] [address] [place] [address] 01/02/2025 9:30 AM OLIVE GROWER Appointment [facility] [address] [place] [address] 01/02/2025 10:00 AM OLIVE GROWER Office Visit [facility] - GI [address] [facility], [place] [address] Dirk Mcdermott MD [address] [place] [address] [place] [address] documented as of this encounter Goals Goal Patient Goal Type Associated Problems Recent Progress Patient-Stated? Author Reduce fat intake. Diet On track( 11:01 AM OLIVE GROWER) Rupali Cruz, RN Note: REDUCED FAT AND REDUCED SODIUM DIET. Safety General On track( 11:01 AM OLIVE GROWER) Rupali Cruz, RN Note: Expected end date: ONGOING Interventions: Wear glasses/hearing aid Keep personal items within easy reach Use some light at night in your room documented as of this encounter Results * CERULOPLASMIN (02/13/2022 12:58 PM CDT) Pathologist [facility] Ceruloplasmin 28 20 - 60 mg/dL 02/13/2022 2:34 PM CDT [facility] Blood BLOOD SPECIMEN / Unknown Lab Venipuncture / Unknown 02/13/2022 12:58 PM CDT 02/13/2022 1:58 PM CDT Dirk Mcdermott MD LAB - CHEMISTRY ADRIEN MARTINEZ [facility] Organization Address City/State/ZIP Co de Phone Number [facility] [address] [place] [address], [facility] [phone] * (ABNORMAL) BASIC METABOLIC PANEL (CALCIUM TOTAL) (02/13/2022 12:58 PM CDT) Pathologist [facility] BUN 13 7 - 26 mg/dL 02/13/2022 2:29 PM CDT [facility] Creatinine 0.55(L) 0.56 - 0.96 mg/dL 02/13/2022 2:29 PM CDT [facility] Sodium 140 136 - 145 mmol/L 02/13/2022 2:29 PM [facility] Potassium 3.7 3.5 - 4.5 mmol/L 02/13/2022 2:29 PM [facility] Chloride 104 98 - 107 mmol/L 02/13/2022 2:29 PM [facility] CO2 26 22 - 29 mmol/L 02/13/2022 2:29 PM [facility] Glucose 85 70 - 115 mg/dL 02/13/2022 2:29 PM [facility] Calcium 9.8 8.4 - 10.2 mg/dL 02/13/2022 2:29 PM [facility] Anion Gap 14 8 - 18 02/13/2022 2:29 PM [facility] BUN/Creatinine Ratio 24(H) 7 - 23 02/13/2022 2:29 PM [facility] Osmolality Calculated 289 270 - 300 mOsm/kg 02/13/2022 2:29 PM [facility] eGFR by CKD-EPI >90 >=90 mL/min/1.7 3 m2 02/13/2022 2:29 PM [facility] Blood BLOOD SPECIMEN / Unknown Lab Venipuncture / Unknown 02/13/2022 12:58 PM CDT 02/13/2022 2:02 PM T Dirk Mcdermott MD LAB - CHEMISTRY ORDE JUAN [facility] Organization Address City/State/ZIP Co de Phone Number [facility] [address] [place] [address], [facility] [phone] * (ABNORMAL) HEPATIC FUNCTION PANEL (02/13/2022 12:58 PM CDT) Protein Total 8.3 6.0 - 8.3 g/dL 022 2:29 PM [facility] Albumin 4.6 3.4 - 5.0 g/dL 02/13/2022 2:29 PM [facility] Bilirubin Total 1.8(H) 0.2 - 1.2 mg/dL 01/21 2:29 PM [facility] Bilirubin Conjugated 0.8(H) 0.1 - 0.5 mg/dL 02/13/2022 2:29 PM CDT [facility] Bilirubin Unconjugated 1.0 Unconjugated Bilirubin is a calculated value: Reference ranges have not been established. mg/dL 02/13/2022 2:29 PM CDT [facility] Alkaline Phosphatase 95 40 - 150 U/L 02/13/2022 2:29 PM CDT [facility] ALT 29 5 - 55 U/L 02/13/2022 2:29 PM CDT [facility] AST 41(H) 5 - 34 U/L 02/13/2022 2:29 PM CDT [facility] Albumin/Globulin Ratio 1.2 1.1 - 2.3 02/13/2022 2:29 PM CDT [facility] Blood BLOOD SPECIMEN / Unknown Lab Venipuncture / Unknown 02/13/2022 12:58 PM CDT 02/13/2022 2:02 PM CDT Dirk Mcdermott MD LAB - CHEMISTRY ADRIEN MARTINEZ Performing Organization Address City/[facility]/ZIP Co de Phone Number [facility] [address] [place] [address], [facility] [phone] * (ABNORMAL) HEPATITIS A ANTIBODY (02/13/2022 12:58 PM CDT) Hepatitis A Virus Antibody Total Positive( A) Negative 02/15/2022 9:22 AM CDT [facility]) Comment: The positive anti-HAV is consistent with recent or remote Hepatitis A infection or antibody response to HAV vaccination. False positive anti-HAV can occur. Performed by [employer], [address] [place] [id number] [email or web address], Danelle Martínez MD, Lab. Director Blood BLOOD SPECIMEN / Unknown Lab Venipuncture / Unknown 02/13/2022 12:58 PM CDT 02/13/2022 1:58 PM CDT Dirk Mcdermott MD LAB - CHEMISTRY ADRIEN MARTINEZ Performing Organization Address City/[facility]/ZIP Co de Phone Number [facility] [employer] [facility]) [address] [place] [address] [place] [address] * HEPATITIS B SURFACE ANTIBODY (02/13/2022 12:58 PM CDT) Hepatitis B Virus Surface Antibody Non-react shaylee Non-react shaylee 02/13/2022 2:52 PM CDT [facility] Comment: < 8 mIU/mL Hepatitis B surface Antibody (HBsAb). Nonreactive for HBsAb - individual is considered not immune to Hepatitis B Virus infection. Hepatitis B Surface Antibody Quantitative 0.0 <8.0 mIU/mL 02/13/2022 2:52 PM CDT [facility] Comment: Hepatitis B Surface Antibody Numeric Result Interpretation: ? Nonreactive: ?<8.0 mIU/mL ? Indeterminate: ??8.0 - 12.0 mIU/mL ? Reactive: ?>12.0 mIU/mL ? Blood BLOOD SPECIMEN / Unknown Lab Venipuncture / Unknown 02/13/2022 12:58 PM CDT 02/13/2022 1:58 PM CDT Dirk Mcdermott MD LAB - CHEMISTRY ADRIEN MARTINEZ Performing Organization Address [facility] Co de Phone Number [address] [address], [facility] [phone] * HEPATITIS B SURFACE ANTIGEN W RFLX CONFIRMATION (02/13/2022 12:58 PM CDT) Pathologist [facility] Hepatitis B Virus Surface Antigen Non-reacti ve Non-reacti ve 02/13/2022 2:52 PM CDT [facility] Blood BLOOD SPECIMEN / Unknown Lab Venipuncture / Unknown 02/13/2022 12:58 PM CDT 02/13/2022 1:58 PM CDT Dirk Mcdermott MD LAB - CHEMISTRY ADRIEN MARTINEZ [address] [address], [facility] [phone] * HEPATITIS C AB SCREEN RFLX NAAT QUANT (02/13/2022 12:58 PM CDT) Hepatitis C Antibody Non-react shaylee Non-reac tive 02/13/2022 2:52 PM CDT [facility] Comment:Hepatitis C Antibody screen indicates [...] Mcdermott MD LAB - CHEMISTRY ADRIEN MARTINEZ [facility] Organization Address City/State/ZIP Co de Phone Number [address] [address], [facility] [phone] documented in this encounter Visit Diagnoses Diagnosis Alcoholic cirrhosis of liver without ascites (HCC)- Primary Alcoholic cirrhosis of liver documented in this encounter Care Teams Principal Gifts Officer Relationship Specialty Start Date End Date Lee Campbell MD [address] [place] [place] [address] PCP - General Internal Medicine 04/15/21 Mat Stubbs MD [address] [place] [address] Gastroenterology 04/15/21 documented as of this encounter
--- OUTSIDE RECORDS SUMMARY | 2024-11-26 05:24 | XMS_ITS | Encounter Summary ---
Author Organization [facility] Address [address] [place] [address]. [place] [address] Care Team Providers Care Entry Level Account Representative Name Role Phone Unavailable Primary Care Provider Unavailabl e Encounter Details Date Type Department Care Team (Late st Contact Info) Description 10/04/2020 Patient Self-Triage [facility] DEPART[facility] [address] [place] [address] [facility] Social History Tobacco Use Types Packs/Day Years Used Date Smoking Tobacco: Never Assessed Comments Unknown Sex and Gender Information Value Date Recorded Sex Assigned at Not on file Legal Sex Female 7:26 PM CDT Gender Identity Not on file Sexual Orientation Not on file documented as of this encounter Plan of Treatment Not on file documented as of this encounter Visit Diagnoses Not on filedocumented in this encounter
--- OUTSIDE RECORDS SUMMARY | 2024-11-26 05:24 | XMS_ITS | Encounter Summary ---
Author Organization [facility] Address [address] [place] [address] Care Team Providers Care Hospitality Host Name Role Phone Unavailable Primary Care Provider Unavailabl e Encounter Details Date Type Department Care Team (Late st Contact Info) Description 08/15/2024 External Device Data [place] Provider, Abstract NO ADDRESS ON FILE Social History Tobacco Use Types Packs/Day Years Used Date Smoking Tobacco: Former Cigarettes Alcohol Use Standard Drinks/Week Comments Not Currently 0 (1 standard drink = 0.6 oz pur e alcohol) Sex and Gender Information Value Date Recorded Sex Assigned at Not on file Gender Identity Not on file Sexual Orientation Not on file documented as of this encounter Plan of Treatment Not on file documented as of this encounter Visit Diagnoses Not on filedocumented in this encounter
--- OUTSIDE RECORDS SUMMARY | 2024-11-26 05:24 | XMS_ITS | Encounter Summary ---
Author Organization [facility] Address [address] [place] [address] Care Team Providers Care Card Cleaner Name Role Phone Unavailable Primary Care Provider Unavailabl e Encounter Details Date Type Department Care Team (Late st Contact Info) Description 12/05/2021 9:30 AM CHEMIST INORGANIC Rapid Evaluation [facility] Testing [address] [address] Social History Tobacco Use Types Packs/Day Years Used Date Smoking Tobacco: Never Assessed Comments Unknown Sex and Gender Information Value Date Recorded Sex Assigned at Not on file Legal Sex Female 1:20 PM CHEMIST INORGANIC Gender Identity Not on file Sexual Orientation Not on file documented as of this encounter Plan of Treatment Not on file documented as of this encounter Visit Diagnoses Not on filedocumented in this encounter
--- OUTSIDE RECORDS SUMMARY | 2024-11-26 05:24 | XMS_ITS | Encounter Summary ---
Author Organization [facility] Address [address] [facility] [place] [address] Care Team Providers Care Purler Name Role Phone Lee Campbell MD Primary Care Provider [phone] Mat Stubbs MD Unavailable [phone] Encounter Details Date Type Department Care Team (Late Contact Info) Description 02/04/2022 Orders Only [facility] - [place] [address] [facility] [place] [address] Dean Jaramillo, RN Social History Tobacco Use Types Packs/Day Years Used Date Smoking Tobacco: Never Smokeless Tobacco: Never Sex and Gender Information Value Date Recorded Sex Assigned at Female 12/08/2020 7:15 PM [employer]LAND[employer] CON[employer] LABORER Gender Identity Female 12/08/2020 7:15 PM [employer] CON[employer] LABORER Sexual Orientation Straight 12/08/2020 7: 15 PM [employer] CON[employer] LABORER COVID-19 Exposure Response Date Recorded In the last month, have you been in contact with someone who was confirmed or suspected to have Coronavirus / COVID-19? No / Unsure 02/04/2022 1:01 PM CDT documented as of this encounter Plan of Treatment Upcoming Encounters Date Type Department Care Team (Late Contact Info) Description 01/02/2025 8:45 AM [employer] CON[employer] LABORER Appointment [facility] [address] [place] [address] 01/02/2025 9:30 AM [employer] CON[employer] LABORER Appointment [facility] OP [facility]RAW [address] [address] [place] [address] 01/02/2025 10:00 AM [employer] CON[employer] LABORER Office Visit [facility] - [place] [address] [facility] [place] [address] Dirk Mcdermott MD [address] [place] [address] [address] [facility] [place] [address] documented as of this encounter Goals Goal Patient Goal Type Associated Problems Recent Progress Patient-Stated? Author Reduce fat intake. Diet On track( 11:01 AM [employer]ETLAND[employer] CON[employer] LABORER) No Rupali Pratt, RN Note: REDUCED FAT AND REDUCED SODIUM DIET. Safety General On track( 11:01 AM [employer] LABORER) Rupali Cruz, RN Note: Expected end date: ONGOING Interventions: Wear glasses/hearing aid Keep personal items within easy reach Use some light at night in your room documented as of this encounter Visit Diagnoses Not on filedocumented in this encounter Care Teams Purler Relationship Specialty Start Date End Date Lee Campbell MD [address] [place] [address] PCP - General Internal Medicine 04/15/21 Mat Stubbs MD [address] [facility] [address] [place] [address] Gastroenterology 04/15/21 documented as of this encounter
--- OUTSIDE RECORDS SUMMARY | 2024-11-26 05:24 | XMS_ITS | Encounter Summary ---
Author Organization [facility] Address [address] [place] [address] Care Team Providers Care C T Tech Name Role Phone Unavailable Primary Care Provider Unavailabl e Reason for Referral * Radiology Services (Routine) - Closed Specialty Diagnoses / Procedures Referred By Contanders t Referred To Contact Radiology Diagnoses Well woman exam with routine gynecological exam Procedures MAMMO 3D MARITZA SCREEN BILAT W OR WO CAD CHG SCREENING MAMMOGRAPHY BI 2-VIEW BREAST INC CAD CHG SCREENING DIGITAL BREAST TOMOSYNTHESIS BI Aliza Lacy MD [address] [place] [address] [facility] Mammography [facility] [address] [place] [address] Referral ID Status Reason Start Date Expiration Date Visits Re quested Visits Authorized [id number] Closed 05/30/2024 06/30/2025 1 1 Reason for Visit * Reason Comments Well Woman Exam Establish Care Encounter Details Date Type Department Care Team (Late st Contact Info) Description 05/30/2024 10:00 AM CDT Office Visit [facility] [address] [place] [address] Aliza Fitzpatrick MD [address] [place] [address] Well woman exam with routine gynecological exam (Primary Dx) Social History Tobacco Use Types Packs/Day Years Used Date Smoking Tobacco: Former Cigarettes Tobacco Cessation:Counseling Given: Not Answered Alcohol Use Standard Drinks/Week Comments Not Currently 0 (1 standard drink = 0.6 oz pur e alcohol) Sex and Gender Information Value Date Recorded Sex Assigned at Not on file Gender Identity Not on file Sexual Orientation Not on file documented as of this encounter Last Filed Vital Signs Vital Sign Reading Time Taken Comments Blood Pressure 112/64 05/30/2024 9:57 AM CDT Pulse 67 05/30/2024 9:57 AM CDT Temperature - - Respiratory Rate - - Oxygen Saturation 99% 05/30/2024 9:57 AM CDT Inhaled Oxygen Concentration - - Weight 61.2 kg (135 lb) 05/30/2024 9:57 AM CDT Height 162.6 cm (5' 4 ) 05/30/2024 9:57 AM CDT Body Mass Index 23.17 05/30/2024 9:57 AM CDT documented in this encounter Progress Notes * Aliza Lacy MD - 05/30/2024 10:07 AM CDT Well Woman Exam HPI: Alea Garcia is a 49 y.o. female who presents today for a WWE. She denies any gynecologic complaints today. She is sexually active. Denies any sexual concerns or dyspareunia. Denies any relationship concerns or interpersonal conflict/violence. Current contraceptive method is Mirena IUD, inserted 2021. 2nd device in a row. ROS: As above. 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 Hx: Menarche: 15 Menstrual history: cycle length - amenorrhea with IUD Dysmenorrhea: denies Pap smear history: remote h/o abl pap, last pap smear ?2021 STD history: denies Previous contraception: IUD, OCPs, Depo Urinary or fecal incontinence: denies PMHx: Past Medical History: Diagnosis Date Patient denies medical problems PSHx: Past Surgical History: Procedure Laterality Date HX SECTION HX TONSIL AND ADENOIDECTOMY FHx: Family history and genetic flow sheets completed and include: Family History Problem Relation Name Age of Onset No Known Problems Mother Breast Cancer Maternal Grandmother Colon Cancer Neg Hx Ovarian Cancer Neg Hx SHx: Social History Socioeconomic History Marital status: Single Spouse name: Not on file Number of children: Not on file Years of education: Not on file Highest education level: Not on file Occupational History Occupation: chief operating officer Tobacco Use Smoking status: Former Types: Cigarettes Smokeless tobacco: Not on file Substance and Sexual Activity Alcohol use: Not Currently Drug use: Yes Types: Marijuana Sexual activity: Not on file Other Topics Concern Not on file Social History Narrative Not on file Social Determinants of Health Financial Resource Strain: Not on file Food Insecurity: Not on file Transportation Needs: Not on file Social Connections: Not on file Intimate Partner Violence: Not on file Housing Stability: Not on file Medications: Current Outpatient Medications on File Prior to Visit Medication Sig Dispense Refill levonorgestreL (Mirena) 21 mcg/24 hr (8 yrs) 52 mg IUD Mirena 20 mcg/24 hours (6 yrs) 52 mg intrauterine device Take by intrauterine route. No current facility-administered medications on file prior to visit. Vaccinations: Flu shot: declined COVID vaccine status: completed series and booster Allergies: No Known Allergies Physical Exam: Vitals: 05/30/24 0957 BP: 112/64 Pulse: 67 SpO2: 99% Weight: 61.2 kg (135 lb) Height: 5' 4 (1.626 m) General: Well-developed, well-nourished female in [facility] HEENT: Normocephalic, atraumatic Heart: acyanotic Lungs: unlabored Breast: breasts appear normal, no suspicious masses, no skin or nipple changes or axillary nodes Abdomen: soft, nontender, nondistended Extremities: No edema. Skin: warm and dry : Normal female external genitalia. Vaginal mucosa moist without lesions. Cervix grossly normal. IUD strings visible. Uterus and adnexa appropriate on bimanual exam. No cervical motion tenderness. Assessment/Plan: 49 y.o. here for WWE 1. Well woman care - Cervical cancer screening: Pap smear obtained today, will follow up on the results with the patient as they become available. - Breast cancer screening: mammogram Ordered - Colon cancer screening: needs to R/S - STD testing: received - hereditary cancer screening: does not qualify for testing 2. Sexual health and contraception - continuing Mirena IUD, inserted 2021 - Encouraged safe sex practices Aliza Lacy MD documented in this encounter Plan of Treatment Not on file documented as of this encounter Procedures Procedure Name Priority Date/Time Associated Diagnosis Comments CERV/VAG CYTO AGE BASED SCREEN PAP W CT/NG, TRICH Routine 05/30/2024 10:24 AM CDT Well woman exam with routine gynecological exam documented in this encounter Results * MAMMO 3D MARITZA SCREEN BILAT W OR WO CAD (07/13/2024 1:49 PM CDT) Anatomical Region Laterality Modality Breast Bilateral Mammography 07/13/2024 1:50 PM CDT Addenda Addendum by Frantz So MD on 07/14/2024 12:14 PM CDT ADDENDUM: Outside study made available for review dated October 2020. FINDINGS: The parenchymal pattern of the breasts is unchanged from the previous studies with no concerning developing dominant masses, microcalcifications or focal areas of architectural distortion. IMPRESSION: 1. No concerning developing abnormality identified. OVERALL FINAL ASSESSMENT: BI-RADS CATEGORY 1: Negative RECOMMENDATIONS: 1. Recommend annual mammography. ?? Impressions 07/13/2024 4:29 PM CDT IMPRESSION: 1. Need outside films. OVERALL FINAL ASSESSMENT: ??BI-RADS CATEGORY 0: ??Incomplete, needs comparison to prior mammograms. RECOMMENDATIONS: 1. Outside films will be obtained. An addendum will be dictated when these films are available. DICTATION LOCATION: ??[facility] ?? Narrative 07/13/2024 4:29 PM CDT BILATERAL SCREENING DIGITAL MAMMOGRAM WITH 3D TOMOSYNTHESIS AND CAD ?? DATE: 07/13/2024 1:49 PM INDICATION: Routine yearly screening mammogram. TECHNIQUE: Full field digital screening mammograms of both breasts were performed. 2D and 3D acquisitions were obtained. CAD was utilized. ?? COMPARISON: None available. BREAST COMPOSITION: The breasts are heterogeneously dense, which may obscure small masses. FINDINGS: Comparison will be obtained to assure stability of the parenchymal pattern. An addendum will be dictated when these films are made available. Aliza Lacy MD MAMMO ORDERABLES * (ABNORMAL) CERV/VAG CYTO AGE BASED SCREEN PAP W CT/NG, TRICH (05/30/2024 10:24 AM CDT) COMMENT (PAP): [facility] [place] Comment: This order for age-based cervical cancer and STI screening follows ACOG guidelines(PB 168, 140, GXV024). See individual assays for performing site location. CLINICAL INFORMATION [facility] [place] Comment:None given LAST MENSTRUAL PERIOD [facility] [place] Comment:NONE GIVEN PREV PAP: [facility] [place] Comment:NONE GIVEN PREV BX: [facility] [place] Comment:NONE GIVEN SOURCE [facility] [place] Comment:Endocervix ADEQUACY: [facility] [place] Comment: Satisfactory for evaluation. Endocervical/transformation zone component present. Age and/or menstrual status not provided PAP INTERP [facility] [place] Comment: Cytology Results: Negative for intraepithelial lesion or malignancy. CYTOLOGY INFECTION [facility] [place] Comment: Shift in vaginal sander suggestive of bacterial vaginosis. COMMENT (PAP TEST) [facility] [place] Comment: This Pap test has been evaluated with computer assisted technology. TECHNICAL CUSTOMER SUPPORT SPECIALIST: [facility] [place] Comment: MEF, CT(ASCP) CT screening location: [place] [address] [place] [address] REVIEW TECHNICAL CUSTOMER SUPPORT SPECIALIST: David Craig Comment: [place], CT(ASCP) CT Screening location: [facility] [address] [place] [address] [address] [facility] [place] Comment: EXPLANATORY NOTE: The Pap is a screening test for cervical cancer. It is not a diagnostic test and is subject to false negative and false positive results. It is most reliable when a satisfactory sample, regularly obtained, is submitted with relevant clinical findings and history, and when the Pap result is evaluated along with historic and current clinical information. HPV E6/E7 Detected(A) Not Detected [facility] [place] Comment: Methodology: Beach Attendant-Mediated Amplification This assay detects E6/E7 viral messenger RNA (mRNA) from 14 high-risk HPV types (16,18,31,33,35,39,45,51,52,56,58,59,66,68). Cervical sources are required for HPV testing. If a vaginal source from a patient who has had a total hysterectomy with removal of cervix was submitted, please contact the testing laboratory for alternative testing options. For additional information, please refer to http://Vestiage/faq/JPF766v2 (This link if provided for information/ educational purposes only.) HPV 16 RNA NOT DETECTED NOT DETECTED [facility] HPV 18/45 RNA DETECTED(A) NOT DETECTED [facility] [place] Comment: Methodology: Beach Attendant Mediated Amplification Cervical sources are required for HPV testing. If a vaginal source from a patient who has had a total hysterectomy with removal of cervix was submitted, please contact the testing laboratory for alternative testing options. C TRAC RNA NOT DETECTED NOT DETECTED [facility] [place] N.GONORRHOEAE RNA, TMA NOT DETECTED NOT DETECTED [facility] [place] COMMENT INFECTIOUS DISEASE [facility] [place] Comment: The analytical performance characteristics of this assay, when used to test SurePath(TM) specimens have been determined by [facility]. The modifications have not been cleared or approved by the FDA. This assay has been validated pursuant to the CLIA regulations and is used for clinical purposes. For additional information, please refer to https://Vestiage/faq/QTP472 (This link is being provided for information/ educational purposes only.) TRICHOMONAS VAGINALIS,QUALITAT MARQUISE,PAP VIAL NOT DETECTED NOT DETECTED [facility] [place] Comment: The analytical performance characteristics of this assay have been determined by [facility]. The modifications have not been cleared or approved by the FDA. This assay has been validated pursuant to the CLIA regulations and is used for clinical purposes. For additional information, please refer to http://Vestiage/ faq/Trichomonastma (This link is being provided for information/ educational purposes only.) Test Performed at: [facility] [address] [place] ??[phone] Zoe BERRY Genital SWAB OF ENDOCERVIX / Unknown 05/30/2024 10:24 AM CDT 05/31/2024 3:15 AM CDT Aliza Lacy MD PATHOLOGY/CYTOLOGY ORDERABLES Performing Organization Address City/State/[facility] Co de Phone Number [facility] [phone] [facility] [address] [place] [address] documented in this encounter Visit Diagnoses Diagnosis Well woman exam with routine gynecological exam- Primary Routine gynecological examination Well woman exam with routine gynecological exam Routine gynecological examination documented in this encounter
--- OUTSIDE RECORDS SUMMARY | 2024-11-26 05:24 | XMS_ITS | Clinical Summary ---
Author Organization [facility] on Address [address] [place] [address] Phone Care Team Providers Care Manager Name Role Phone Unavailable Primary Care Provider Unavailabl e Allergies No known active allergies Medications Medication Sig Dispensed Refills Start Date End Date Status levonorgestreL (Mirena) 21 mcg/24 hr (8 yrs) 52 mg IUD Mirena 20 mcg/24 hours (6 yrs) 52 mg intrauterine device Take by intrauterine route. Active MULTIVITAMIN ORAL Take by mouth. Act marquise Active Problems No known active problems Family History Medical History Relation Name Comments Breast Cancer Maternal Grandmother No Known Problems Mother Colon Cancer Neg Hx Ovarian Cancer Neg Hx Relation Name Status Comments Maternal Grandmother Mother Social History Tobacco Use Types Packs/Day Years Used Date Smoking Tobacco: Former Cigarettes Tobacco Cessation:Counseling Given: Not Answered Alcohol Use Standard Drinks/Week Comments Not Currently 0 (1 standard drink = 0.6 oz pur e alcohol) Sex and Gender Information Value Date Recorded Sex Assigned at Not on file Gender Identity Not on file Sexual Orientation Not on file Last Filed Vital Signs Vital Sign Reading Time Taken Comments Blood Pressure 114/68 07/11/2024 11:33 AM CDT Pulse 67 05/30/2024 9:57 AM CDT Temperature - - Respiratory Rate - - Oxygen Saturation 99% 05/30/2024 9:57 AM CDT Inhaled Oxygen Concentration - - Weight 60.5 kg (133 lb 6.4 oz) 07/11/2024 11:33 AM CDT Height 162.6 cm (5' 4 ) 07/11/2024 11:33 AM CDT Body Mass Index 22.9 07/11/2024 11:33 AM CDT Plan of Treatment Health Maintenance Due Date Last Done Comments PNEUMOCOCCAL VACCINE 0-64 YEARS (1 of 2 - PCV) 982 DTAP/TDAP/TD VACCINES (1 - Tdap) 1995 HEPATITIS B VACCINES (1 of 3 - 19+ 3-dose series) 02/21 COLORECTAL SCREENING 2021 Colorectal Cancer Screening 2021 FIT-DNA Q 3 years 2021 FIT/FOBT Q 1 year 2021 Flex Sig/CT Colonography Q 5 years 2021 INFLUENZA VACCINE (#1) 2024 BREAST CANCER SCREENING 07/13/2025 07/13/2024 CERVICAL CANCER SCREENING 05/30/2027 05/30/2024 Procedures Procedure Name Priority Date/Time Associated Diagnosis Comments MAMMO 3D MARITZA SCREEN BILAT W OR WO CAD Routine 07/13/2024 1:49 PM CDT Well woman exam with routine gynecological exam CERV/VAG CYTO AGE BASED SCREEN PAP W CT/NG, TRICH Routine 05/30/2024 10:24 AM CDT Well woman exam with routine gynecological exam from Last 3 Months or Most Recently Relevant to Health Maintenance Results * MAMMO 3D MARITZA SCREEN BILAT [...] TRICH (05/30/2024 10:24 AM CDT) COMMENT (PAP): [facility] [place] Comment: This order for age-based cervical cancer and STI screening follows ACOG guidelines(PB 168, 140, EQC664). See individual assays for performing site location. CLINICAL INFORMATION [facility] [place] Comment:None given LAST MENSTRUAL PERIOD [facility] [place] Comment:NONE GIVEN PREV PAP: [facility] [place] Comment:NONE GIVEN PREV BX: [facility] [place] Comment:NONE GIVEN SOURCE [facility] [place] Comment:Endocervix ADEQUACY: [facility] [place] Comment: Satisfactory for evaluation. Endocervical/transformation zone component present. Age and/or menstrual status not provided PAP INTERP [facility] [place] Comment: Cytology Results: Negative for intraepithelial lesion or malignancy. CYTOLOGY INFECTION [facility] [place] Comment: Shift in vaginal sander suggestive of bacterial vaginosis. COMMENT (PAP TEST) [facility] [place] Comment: This Pap test has been evaluated with computer assisted technology. CLERICAL CLERK: Jah Craig Comment: MEF, CT(ASCP) CT screening location: [place] [address] [address] [place] [address] REVIEW CLERICAL CLERK: David Craig Comment: [place], CT(ASCP) CT Screening location: [facility] [address] [place] [address] EXPLANATORY NOTE Que Chuck Craig Comment: EXPLANATORY NOTE: The Pap is a [...] clinical information. HPV E6/E7 Detected(A) Not Detected [facility] [place] Comment: Methodology: Learning Technologist-Mediated Amplification This assay detects E6/E7 viral messenger RNA (mRNA) from 14 high-risk HPV types (16,18,31,33,35,39,45,51,52,56,58,59,66,68). Cervical sources are required for HPV testing. If a vaginal source from a patient who has had a total hysterectomy with removal of cervix was submitted, please contact the testing laboratory for alternative testing options. For additional information, please refer to http://Naldo.CiteeCar/faq/UOF308z8 (This link if provided for information/ educational purposes only.) HPV 16 RNA NOT DETECTED NOT DETECTED [facility] [place] HPV 18/45 RNA DETECTED(A) NOT DETECTED [facility] [place] Comment: Methodology: Learning Technologist Mediated Amplification Cervical sources are required for HPV testing. If a vaginal source from a patient who has had a total hysterectomy with removal of cervix was submitted, please contact the testing laboratory for alternative testing options. C TRAC RNA NOT DETECTED NOT DETECTED [facility] [place] N.GONORRHOEAE RNA, TMA NOT DETECTED NOT DETECTED [facility] [place] COMMENT INFECTIOUS DISEASE [facility] [place] Comment: The analytical performance characteristics of this assay, when used to test SurePath(TM) specimens have been determined by [facility]. The modifications have not been cleared or approved by the FDA. This assay has been validated pursuant to the CLIA regulations and is used for clinical purposes. For additional information, please refer to https://education.Eagle-i Music.[facility]/faq/VLB737 (This link is being provided for information/ educational purposes only.) TRICHOMONAS VAGINALIS,QUALITAT MARQUISE,PAP VIAL NOT DETECTED NOT DETECTED [facility] [place] Comment: The analytical performance characteristics of this assay have been determined by [facility]. The modifications have not been cleared or approved by the FDA. This assay has been validated pursuant to the CLIA regulations and is used for clinical purposes. For additional information, please refer to [email or web address][facility]com/ faq/Trichomonastma (This link is being provided for information/ educational purposes only.) Test Performed at: [facility] [address] [place] ??[phone] Zoe BERRY Genital SWAB OF ENDOCERVIX / Unknown 05/30/2024 10:24 AM CDT 05/31/2024 3:15 AM CDT Aliza Lacy MD PATHOLOGY/CYTOLOGY ORDERABLES [facility] [phone] [facility] [address] [place] [address] from Last 3 Months or Most Recently Relevant to Health Maintenance
--- OUTSIDE RECORDS SUMMARY | 2024-11-26 05:24 | XMS_ITS | Encounter Summary ---
Author Organization [facility] Address [address] [place] [address]. [place], [place] [id number] [place] [address] Care Team Providers Care Skid Strapper Name Role Phone Unavailable Primary Care Provider Unavailabl e Encounter Details Date Type Department Care Team (Late st Contact Info) Description 10/25/[address] [facility] [address] [place] [address] Dev Blum MD Social History Tobacco Use Types Packs/Day Years [...]
--- OUTSIDE RECORDS SUMMARY | 2024-11-26 05:24 | XMS_ITS | Clinical Summary ---
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 Gender Identity Not on file Sexual Orientation Not on file Plan of Treatment Health Maintenance Due Date Last Done Comments Hepatitis C Virus (HCV) Screening 1976 TdaP Immunization 1976 Hepatitis B Immunization (1 of 3 - 19+ 3-dose series) 1995 Pap Smear 1997 Cervical Cancer Screening (CCS) 2006 HPV/Cotest 2006 Discussion re Starting/Frequency of Mammograms 2016 Colonoscopy 2021 Colorectal Cancer Screening 2021 SARS-COV-2 Immunization ( season) 2023 02/09/2021, 01/19/2021 Influenza Immunization (#1) 2024 Meningococcal Immunization (ACWY) Aged Out No longer eligible b ased on patient's age to complete this topic Pneumococcal Immunization Combined Aged Out No longer eligible b ased on patient's age to complete this topic Rotavirus Immunization Aged Out No lo nger eligible based on patient's age to complete this topic
--- OUTSIDE RECORDS SUMMARY | 2024-11-26 05:24 | XMS_ITS | Encounter Summary ---
Author Organization [facility] Address [address] [place] [address] Care Team Providers Care Radar Mechanic Name Role Phone Lee Campbell MD Primary Care Provider [phone] Mat Stubbs MD Unavailable [phone] Reason for Referral * Radiology Services (Routine) - Closed Specialty Diagnoses / Procedures Referred By Contac t Referred To Contact Ultrasound Diagnoses Alcoholic cirrhosis of liver without ascites (HCC) Portal hypertension (HCC) Elevated bilirubin Procedures US ABDOMEN LIMITED Lani Hernandez PA-C [address] [place] [address] [address] [place] [address] [facility] [address] [place] [address] Referral ID Status Reason Start Date Expiration Date Visits Re quested Visits Authorized [id number] Closed 07/17/2022 07/17/2023 1 1 Reason for Visit * Reason Comments Cirrhosis Encounter Details Date Type Department Care Team (Late Contact Info) Description 07/17/2022 11:00 AM CDT Office Visit [facility] [address] [place] [address], [place] [address] Dirk Mcdermott MD [address] [place] [address] [address] [place] [address] Lani Hernandez PA-C [address] [place] [address] Alcoholic cirrhosis of liver without ascites (HCC) (Primary Dx); Portal hypertension (HCC); Elevated bilirubin Social History Tobacco Use Types Packs/Day Years Used Date Smoking Tobacco: Never Smokeless Tobacco: Never Sex and Gender Information Value Date Recorded Sex Assigned at Female 12/08/2020 7:15 PM MENTAL HEALTH PROGRAM SPECIALIST Gender Identity Female 12/08/2020 7:15 PM MENTAL HEALTH PROGRAM SPECIALIST Sexual Orientation Straight 12/08/2020 7: 15 PM MENTAL HEALTH PROGRAM SPECIALIST documented as of this encounter Last Filed Vital Signs Vital Sign Reading Time Taken Comments Blood Pressure 135/69 07/17/2022 11:40 AM CDT Pulse 64 07/17/2022 11:40 AM CDT Temperature 36.8 ??C (98.3 ??F) 07/17/2022 11:40 AM C DT Respiratory Rate 18 07/17/2022 11:40 AM CDT Oxygen Saturation 100% 07/17/2022 11:40 AM CDT Inhaled Oxygen Concentration - - Weight 57.8 kg (127 lb 6.4 oz) 07/17/2022 11:40 AM CDT Height 162.6 cm (5' 4 ) 07/17/2022 11:40 AM CDT Body Mass Index 21.87 07/17/2022 11:40 AM CDT documented in this encounter Patient Instructions * Patient Instructions* Lani Hernandez PA-C - 07/17/2022 12:29 PM CDT IMPORTANT INSTRUCTIONS 07/17/2022 The following information and instructions are from your visit today: Medication Changes: No changes Laboratory Studies: Pt is to have labs done here today Pt is to have labs done every 3 months Health Maintenance Goals: Pt is to have an ultrasound in July Pt is to have a colonoscopy and EGD- will wait to order until she changes insurance Thank you for entrusting your healthcare to the physicians and other specialists at the [facility] Gastro[facility]ology and Hepatology clinic today. Following your visit, you may receive a survey via email or U.S. Mail. We encourage you to respond to this confidential survey about your care. Your feedback helps us to provide quality service at every visit. Thank you for your help in making our practice meet higher expectations. Contact information: To reach the clinic please call (8 am to noon, 1 to 4:30 pm weekdays). Press 1 to make schedule or cancel an appointment Press 2 for pharmacy refills Press 3 to speak with a nurse regarding a change in your condition. Many times your nurse may be busy seeing patients in clinic. In order to meet your needs timely we have implemented a nurse triage line to take your calls. We are closed from 10-22 for lunch After hours please call (hospital main number), ask the tube making machine operator to call the gastroenterology fellow emergency response technician. Emergency: call 911 or go to your closest emergency room. We encourage you to use [employer] to send and receive messages and review your test results. Let us know if you need information on signing up for [employer]. More information about us and our services can be found on our websites at [email or web address] and [email or web address] Information about the [facility], a hdb-jhb-wgdvbw foundation supporting liver disease research by your doctors and researchers at [facility], can be found at: [email or web address] documented in this encounter Progress Notes * Lani Hernandez PA-C - 07/17/2022 11:56 AM CDT [facility] Progress Note Subjective: Hx obtained from: patient External records reviewed: no Last Hepatology Visit: 01/13/22 Chief Complaint: is a 47 year old female with a history of EtOH related liver dz possible cirrhosis here in the office for follow up. Pt feels good. No complaints. Interval Hx: No interval issues. Past Medical History: Patient denies any new PMH or FH Patient Active Problem List: Alcoholic cirrhosis of liver without ascites Review of Systems Constitutional: Positive for weight loss. Negative for fever. More active in the summer Respiratory: Negative for shortness of breath. Cardiovascular: Negative for chest pain and leg swelling. Gastrointestinal: Negative for abdominal pain, blood in stool, constipation, diarrhea, melena, nausea and vomiting. Skin: Negative for itching and rash. Endo/Heme/Allergies: Does not bruise/bleed easily. Psychiatric/Behavioral: Negative for substance abuse. Social History Nicotine Products: none EtOH: none Marijuana: 5 mg gummies on occasion (when she has to be in a social situation) Illegal drugs: none Health Maintenance Screening Last visit with PCP- more than one year Colon CA screening/ surveillance- pt not yet ready due to some insurance changes coming Esophageal Varices screening/ surveillance- not yet done HCC screening/ surveillance- last done 01/21/22 TwinRx- pt immune to hepatitis A, needs vaccination for hepatitis B Influenza vaccination- COVID vaccination- series of 2 completed on 02/09/21 Objective: Vitals: 07/17/22 1140 BP: 135/69 Pulse: 64 Resp: 18 Temp: 98.3 ??F (36.8 ??C) SpO2: 100% Weight: 57.8 kg (127 lb 6.4 oz) Height: 1.626 m (5' 4 ) Estimated body mass index is 21.87 kg/m?? as calculated from the following: Height as of this encounter: 1.626 m (5' 4 ). Weight as of this encounter: 57.8 kg (127 lb 6.4 oz). Wt Readings from Last 3 Encounters: 07/17/22 57.8 kg (127 lb 6.4 oz) 01/13/22 61.7 kg (136 lb) 04/15/21 62 kg (136 lb 9.6 oz) Medications Current Outpatient Medications Medication Sig ??? levonorgestrel (MIRENA, 52 MG,) 20 MCG/24HR IUD Mirena 20 mcg/24 hours (6 yrs) 52 mg intrauterine device Take by intrauterine route. ??? Multiple Vitamin (MULTIVITAMIN ADULT) TABS Take 1 tablet by mouth No current facility-administered medications for this visit. I have reviewed the current medications with the patient. Physical Examination: General appearance: Well nourished well developed 47 year old in no acute distress Eyes: sclerae were anicteric bilaterally Skin: without evidence of jaundice Lungs: clear to ascultation bilaterally, without wheezes, rales, rhonchi, or dullness Heart: regular rate and rhythm without murmur, clicks, or thrills Abdomen: Bowel sounds normoactive in all four quadrants, soft, non-tender, non- distented, no ascites, no masses, or hepatosplenomegaly Extremities: without clubbing, cyanosis, or edema Mental status: Alert and oriented to person, place, time and situation with a normal affect. No asterixis. Labs/data: Recent Labs Component Name 02/13/22 1258 04/15/21 1338 BUN 13 8 CREATININE 0.55* 0.53* NA 140 141 POTASSIUM 3.7 3.5 CL 104 106 CO2 26 25 GLUCOSE 85 98 CALCIUM 9.8 9.3 PROT 8.3 7.7 ALB 4.6 4.2 TBILI 1.8* 1.6* ALKPHOS 95 95 ALT 29 33 AST 41* 52* ANIONGAP 14 14 BCR 24* 15 OSMOLALITY 289 290 AGRATIO 1.2 1.2 EGFR >90 >90 Recent Labs Component Name 02/13/22 1258 04/15/21 1338 WBC 5.4 5.7 HGB 14.6 13.2 HCT 43.2 39.2 PLTCOUNT 80* 73* Recent Labs Component Name 04/15/21 1338 INR 1.2 02/13/22 12:58 Ceruloplasmin 28 02/13/22 12:58 Hepatitis A Virus Antibody Total Positive ! Hepatitis B Surface Antibody Quantitative 0.0 Hepatitis B Virus Surface Antibody Non-reactive Hepatitis B Virus Surface Antigen Non-reactive Hepatitis C Antibody Non-reactive 01/21/22 Ultrasound IMPRESSION: ?? 1. Cirrhotic liver morphology, with no focal lesion observed. 2. Splenomegaly. Labs and test results were reviewed with the patient. 47 minutes was spent with the patient >50% of which was spent in counseling and coordination of care. Impression/ Plan: 1. Cirrhosis- dx based upon presentation in 2019 with jaundice in the presence of EtOH consumption,evidence of portal hypertension on imaging, morphologic evidence of cirrhosis on ultrasound, and thrombocytopenia. Pt has no evidence of decompensation today. She is up to date on screening for HCC. She is to have a repeat ultrasound in July. 2. Portal hypertension- evidenced through thrombocytopenia and splenomegaly. Pt has yet to have esophageal variceal screening. She is to have this done the same day as her colonoscopy. 3. Elevated bilirubin- mostly indirect. Will continue to fractionate with subsequent labs. 3. Health maintenance- pt is advised to have a colonoscopy which she will do once she has finalizedher medical insurance. She is advised to be vaccinated against hepatitis B. Return to clinic: An appointment was scheduled for her to see us in followup in 6 months. Lani Hernandez PA-C Physician Rewriter in Internal Medicine Dirk Mcdermott MD Professor of Internal Medicine Orders Placed This Encounter ??? US ABDOMEN LIMITED ??? HEPATIC FUNCTION PANEL ??? BASIC METABOLIC PANEL (CALCIUM TOTAL) ??? CBC WITH DIFFERENTIAL ??? PT-INR [facility] PCP Lee Campbell MD [address] [place] [address] Referring Physician No referring provider defined for this encounter. documented in this encounter Plan of Treatment Upcoming Encounters Date Type Department Care Team (Late st Contact Info) Description 01/02/2025 8:45 AM MENTAL HEALTH PROGRAM SPECIALIST Appointment [facility] [address] [place] [address] 01/02/2025 9:30 AM MENTAL HEALTH PROGRAM SPECIALIST Appointment [facility] LAB OP DRAW STATION [address] [place] [address] 01/02/2025 10:00 AM MENTAL HEALTH PROGRAM SPECIALIST Office Visit [facility] - GI [address] [place] [address], [place] [address] Dirk Mcdermott MD [address] [place] [address] [place] [address] documented as of this encounter Goals Goal Patient Goal Type Associated Problems Recent Progress Patient-Stated? Author Reduce fat intake. Diet On track( 11:01 AM MENTAL HEALTH PROGRAM SPECIALIST) No Rupali Pratt RN Note: REDUCED FAT AND REDUCED SODIUM DIET. Safety General On track( 11:01 AM MENTAL HEALTH PROGRAM SPECIALIST) Rupali Cruz RN Note: Expected end date: ONGOING Interventions: Wear glasses/hearing aid Keep personal items within easy reach Use some light at night in your room documented as of this encounter Results * US ABDOMEN LIMITED (01/22/2023 10:47 AM MENTAL HEALTH PROGRAM SPECIALIST) Anatomical Region Laterality Modality Abdomen Ultrasound 01/22/2023 10:4 3 AM MENTAL HEALTH PROGRAM SPECIALIST Impressions 01/22/2023 2:11 PM MENTAL HEALTH PROGRAM SPECIALIST Impression: 1. Hepatic cirrhosis with sequela of [...] (resident). > Dictated by Herrera Kiser MD (Class 1 Owner Operator) 01/22/2023 11:51 AM I, Tu Hester MD have personally reviewed and interpreted this examination/study. > Interpreting Provider: Tu Hester MD on 01/22/2023 2:11 PM Narrative 01/22/2023 2:11 PM MENTAL HEALTH PROGRAM SPECIALIST PROCEDURE: ??US ABDOMEN LIMITED, DATE/TIME OF EXAM: ??01/22/2023 10:48 AM, LOCATION ??[facility] INDICATION: K70.30: Alcoholic cirrhosis of liver [...] DATE/TIME OF EXAM: 01/22/2023 10:48 AM, LOCATION [facility] INDICATION: K70.30: Alcoholic cirrhosis of liver [...] (resident). > Dictated by Herrera Kiser MD (Class 1 Owner Operator) 01/22/2023 11:51 AM I, Tu Hester MD have personally reviewed and interpreted this examination/study. > Interpreting Provider: Tu Hester MD on 01/22/2023 2:11 PM Lani Hernandez PA-C US ORDERABLES documented in this encounter Visit Diagnoses Diagnosis Alcoholic cirrhosis of liver without ascites (HCC)- Primary Alcoholic cirrhosis of liver Portal hypertension (HCC) Portal hypertension Elevated bilirubin Disorders of bilirubin excretion Alcoholic cirrhosis of liver without ascites (HCC) Alcoholic cirrhosis of liver Portal hypertension (HCC) Portal hypertension Elevated bilirubin Disorders of bilirubin excretion documented in this encounter Care Teams Radar Mechanic Relationship Specialty Start Date End Date Lee Campbell MD [address] [place] [address] PCP - General Internal Medicine 04/15/21 Mat Stubbs MD [address] [facility] [address] [place] [address] Gastroenterology 04/15/21 documented as of this encounter
--- OUTSIDE RECORDS SUMMARY | 2024-11-26 05:24 | XMS_ITS | Encounter Summary ---
Author Organization [facility] Address [address] [place] [address] Care Team Providers Care Insurance Adjustor Name Role Phone Unavailable Primary Care Provider Unavailabl e Encounter Details Date Type Department Care Team (Latest Contact Info) Description 11/01/2020 11:15 AM SENIOR CONSULTING MANAGER - 11/01/2020 11:59 PM SENIOR CONSULTING MANAGER Hospital Encounter [facility] Mammography Services [place] [address] [place] [address] [facility], External Provider [address] [place] [address] Discharge Disposition: Home or Self Care Social History Tobacco Use Types Packs/Day Years Used Date Smoking Tobacco: Never Assessed Sex and Gender Information Value Date Recorded Sex Assigned at Not on file Gender Identity Not on file Sexual Orientation Not on file documented as of this encounter Plan of Treatment Not on file documented as of this encounter Procedures Procedure Name Priority Date/Time Associated Diagnosis Comments MAMMO PRIOR STUDY Routine 11/01/2020 11: 15 AM SENIOR CONSULTING MANAGER Follow-up exam documented in this encounter Results * MAMMO PRIOR STUDY (11/01/2020 11:15 AM SENIOR CONSULTING MANAGER) Narrative Crystal Trotter, RT - 07/14/2024 11:13 AM CDT This exam was auto finalized to allow images to be scanned to PACS. Procedure Note Crystal Trotter RT - 07/14/2024 This exam was auto finalized to allow images to be scanned to PACS. External Provider [facility] DIAGNOSTIC IMAGI NG ORDERABLES documented in this encounter Visit Diagnoses Diagnosis Follow-up exam Unspecified follow-up examination documented in this encounter
--- OUTSIDE RECORDS SUMMARY | 2024-11-26 05:24 | XMS_ITS | Encounter Summary ---
Author Organization [facility] Address [address] [place] [address] Care Team Providers Care Hair Dryer Name Role Phone Unavailable Primary Care Provider Unavailabl e Encounter Details Date Type Department Care Team (Late st Contact Info) Description 06/13/2024 External Device Data ST[facility] ABSTRACTION Provider, Abstract [...]
--- OUTSIDE RECORDS SUMMARY | 2024-11-26 05:24 | XMS_ITS | Encounter Summary ---
Author Organization [facility] Address [address] [place] [address] Care Team Providers Care White Hat Hacker Name Role Phone Lee Campbell MD Primary Care Provider [phone] Mat Stubbs MD Unavailable [phone] Encounter Details Date Type Department Care Team (Late Contact Info) Description 12/09/2020 Telephone [facility] [address] [place] [phone] Mahnaz Li Social History Tobacco Use Types Packs/Day Years Used Date Smoking Tobacco: Never Assessed Sex and Gender Information Value Date Recorded Sex Assigned at Female 12/08/2020 7:15 PM STAGE SETTING PAINTER APPRENTICE Gender Identity Female 12/08/2020 7:15 PM STAGE SETTING PAINTER APPRENTICE Sexual Orientation Straight 12/08/2020 7: 15 PM STAGE SETTING PAINTER APPRENTICE documented as of this encounter Plan of Treatment Upcoming Encounters Date Type Department Care Team (Late Contact Info) Description 01/02/2025 8:45 AM STAGE SETTING PAINTER APPRENTICE Appointment [facility] [address] [place] [address] 01/02/2025 9:30 AM STAGE SETTING PAINTER APPRENTICE Appointment [facility] OP DRAW STATION [address] [place] [address] 01/02/2025 10:00 AM STAGE SETTING PAINTER APPRENTICE Office Visit [facility] - GI [address] [place] [phone] Dirk Mcdermott MD [address] [place] [address] [place] [address] documented as of this encounter Visit Diagnoses Not on filedocumented in this encounter Care Teams White Hat Hacker Relationship Specialty Start Date End Date Lee Campbell MD [address] [place] [address] PCP - General Internal Medicine 04/15/21 Mat Stubbs MD [address] [place] [address] Gastroenterology 04/15/21 documented as of this encounter
--- OUTSIDE RECORDS SUMMARY | 2024-11-26 05:24 | XMS_ITS | Encounter Summary ---
Author Organization [facility] Address [address] [place] [address] Care Team Providers Care Biomed Tech Name Role Phone Lee Campbell MD Primary Care Provider [phone] Mat Stubbs MD Unavailable [phone] Encounter Details Date Type Department Care Team (Latest Contact Info) Description 02/04/2022 1:03 PM CDT - 02/04/2022 11:59 PM CDT Hospital Encounter [facility] OP DRAW STATION [address] [place] [phone] Discharge Disposition: Home or Self Care Social History Tobacco Use Types Packs/Day Years Used Date Smoking Tobacco: Never Smokeless Tobacco: Never Sex and Gender Information Value Date Recorded Sex Assigned at Female 12/08/2020 7:15 PM PLASTERER ROUGH Gender Identity Female 12/08/2020 7:15 PM PLASTERER ROUGH Sexual Orientation Straight 12/08/2020 7: 15 PM PLASTERER ROUGH COVID-19 Exposure Response Date Recorded In the [...] st Contact Info) Description 01/02/2025 8:45 AM [address]ER R[address] [facility] [address] [place] [address] 01/02/2025 9:30 AM [address]ERER ROUGH App[address] [facility] OP DRAW STATION [address] [place] [address] 01/02/2025 10:00 AM PLASTERER ROUGH Office Visit [facility] - GI [address] [facility], [place] [address] Dirk Mcdermott MD [address] [place] [address] [address] [place] [address] documented as of this encounter Goals Goal Patient Goal Type Associated Problems Recent Progress Patient-Stated? Author Reduce fat intake. Diet On track( 11:01 AM PLASTERER ROUGH) No Rupali Pratt, RN Note: REDUCED FAT AND REDUCED SODIUM DIET. Safety General On track( 11:01 AM PLASTERER ROUGH) No Rupali Pratt, RN Note: Expected end date: ONGOING Interventions: Wear glasses/hearing aid Keep personal items within easy reach Use some light at night in your room documented as of this encounter Visit Diagnoses Not on filedocumented in this encounter Care Teams Biomed Tech Relationship Specialty Start Date End Date Lee Campbell MD [address] [facility] [place] [address] PCP - General Internal Medicine 04/15/21 Mat Stubbs MD [address] [place] [address] Gastroenterology 04/15/21 documented as of this encounter
--- OUTSIDE RECORDS SUMMARY | 2024-11-26 05:24 | XMS_ITS | Encounter Summary ---
Author Organization [facility] Address [address] [place] [address] Care Team Providers Care Furnace Firer Name Role Phone Lee Campbell MD Primary Care Provider [phone] Mat Stubbs MD Unavailable [phone] Encounter Details Date Type Department Care Team (Latest Contact Info) Description 02/13/2022 12:54 PM CDT - 02/13/2022 11:59 PM CDT Hospital Encounter [facility] [address] [place] [id number] Dirk Mcdermott MD [address] [place] [address] [place] [address] Discharge Disposition: Home or Self Care Social History Tobacco Use Types Packs/Day Years Used Date Smoking Tobacco: Never Smokeless Tobacco: Never Sex and Gender Information Value Date Recorded Sex Assigned at Female 12/08/2020 7:15 PM BRUSH OR BROOM CUTTER Gender Identity Female 12/08/2020 7:15 PM BRUSH OR BROOM CUTTER Sexual Orientation Straight 12/08/2020 7: 15 PM BRUSH OR BROOM CUTTER COVID-19 Exposure Response Date Recorded In the [...] st Contact Info) Description 01/02/2025 8:45 AM BRUSH OR BROOM CUTTER Appointment [facility] [address] [place] [address] 01/02/2025 9:30 AM BRUSH OR BROOM CUTTER Appointment [facility] [address] [place] [address] 01/02/2025 10:00 AM BRUSH OR BROOM CUTTER Office Visit [facility] - GI [address] [facility], [place] [phone] Dirk Mcdermott MD [address] [place] [address] [address] [place] [address] documented as of this encounter Goals Goal Patient Goal Type Associated Problems Recent Progress Patient-Stated? Author Reduce fat intake. Diet On track( 11:01 AM BRUSH OR BROOM CUTTER) Rupali Cruz, RN Note: REDUCED FAT AND REDUCED SODIUM DIET. Safety General On track( 11:01 AM BRUSH OR BROOM CUTTER) Rupali Cruz, RENATA Note: Expected end date: ONGOING Interventions: Wear glasses/hearing aid Keep personal items within easy reach Use some light at night in your room documented as of this encounter Procedures Procedure Name Priority Date/Time Associated Diagnosis Comments HEPATITIS C AB SCREEN RFLX NAAT QUANT Routine 02/13/2022 12:58 PM CDT Alcoholic cirrhosis of liver without ascites (HCC) CERULOPLASMIN Routine 02/13/2022 12:58 PM CDT Alcoholic cirrhosis of liver without ascites (HCC) BASIC METABOLIC PANEL (CALCIUM TOTAL) Routine 02/13/2022 12:58 PM CDT Alcoholic cirrhosis of liver without ascites (HCC) HEPATIC FUNCTION PANEL Routine 12:58 PM CDT Alcoholic cirrhosis of liver without ascites (HCC) HEPATITIS B SURFACE ANTIBODY Routine 02/13/2022 12:58 PM CDT Alcoholic cirrhosis of liver without ascites (HCC) HEPATITIS B SURFACE ANTIGEN W RFLX CONFIRMATION Routine 02/13/2022 12:58 PM CDT Alcoholic cirrhosis of liver without ascites (HCC) HEPATITIS A ANTIBODY Routine 02/13/2022 12:58 PM CDT Alcoholic cirrhosis of liver without ascites (HCC) documented in this encounter Results * CERULOPLASMIN (02/13/2022 12:58 PM CDT) Ceruloplasmin 28 20 - 60 mg/dL 02/13/2022 2:34 PM CDT [facility] Blood BLOOD SPECIMEN / Unknown Lab Venipuncture / Unknown 02/13/2022 12:58 PM CDT 02/13/2022 1:58 PM CDT Dirk Mcdermott MD LAB - CHEMISTRY ADRIEN MARTINEZ [facility] Organization Address City/State/ZIP Co de Phone Number [facility] [address] [place] [address], [facility] [phone] * (ABNORMAL) BASIC METABOLIC PANEL (CALCIUM TOTAL) (02/13/2022 12:58 PM CDT) BUN 13 7 - 26 mg/dL 02/13/2022 2:29 PM CDT [facility] Creatinine 0.55(L) 0.56 - 0.96 mg/dL 02/13/2022 2:29 PM CDT [facility] Sodium 140 136 - 145 mmol/L 02/13/2022 2:29 PM CDT [facility] Potassium 3.7 3.5 - 4.5 mmol/L 02/13/2022 2:29 PM CDT [facility] Chloride 104 98 - 107 mmol/L 02/13/2022 2:29 PM CDT [facility] CO2 26 22 - 29 mmol/L 02/13/2022 2:29 PM CDT [facility] Glucose 85 70 - 115 mg/dL 02/13/2022 2:29 PM [facility] Calcium 9.8 8.4 - 10.2 mg/dL 02/13/2022 2:29 PM [facility] Anion Gap 14 8 - 18 02/13/2022 2:29 PM [facility] BUN/Creatinine Ratio 24(H) 7 - 23 02/13/2022 2:29 PM [facility] Osmolality Calculated 289 270 - 300 mOsm/kg 02/13/2022 2:29 PM [facility] eGFR by CKD-EPI >90 >=90 mL/min/1.7 3 m2 02/13/2022 2:29 PM [facility] Blood BLOOD SPECIMEN / Unknown Lab Venipuncture / Unknown 02/13/2022 12:58 PM CDT 02/13/2022 2:02 PM CDT Dirk Mcdermott MD LAB - CHEMISTRY ADRIEN [facility] Organization Address City/State/[facility] Co de Phone Number [facility] [address] [place] [address], [facility] [phone] * (ABNORMAL) HEPATIC FUNCTION PANEL (02/13/2022 12:58 PM CDT) Protein Total 8.3 6.0 - 8.3 g/dL 022 2:29 PM [facility] Albumin 4.6 3.4 - 5.0 g/dL 02/13/2022 2:29 PM [facility] Bilirubin Total 1.8(H) 0.2 - 1.2 mg/dL 01/21 2:29 PM [facility] Bilirubin Conjugated 0.8(H) 0.1 - 0.5 mg/dL 02/13/2022 2:29 PM [facility] Bilirubin Unconjugated 1.0 Unconjugated Bilirubin is a calculated value: Reference ranges have not been established. mg/dL 02/13/2022 2:29 PM [facility] Alkaline Phosphatase 95 40 - 150 U/L 02/13/2022 2:29 PM [facility] ALT 29 5 - 55 U/L 02/13/2022 2:29 PM CDT [facility] AST 41(H) 5 - 34 U/L 02/13/2022 2:29 PM CDT [facility] Albumin/Globulin Ratio 1.2 1.1 - 2.3 02/13/2022 2:29 PM CDT [facility] Blood BLOOD SPECIMEN / Unknown Lab Venipuncture / Unknown 02/13/2022 12:58 PM CDT 02/13/2022 2:02 PM CDT Dirk Mcdermott MD LAB - CHEMISTRY ADRIEN MARTINEZ Performing Organization Address City/[facility]/ZIP Co de Phone Number [facility] [address] [place] [address], [facility] [phone] * (ABNORMAL) HEPATITIS A ANTIBODY (02/13/2022 12:58 PM CDT) Hepatitis A Virus Antibody Total Positive( A) Negative 02/15/2022 9:22 AM CDT [facility] ([facility]) Comment: The positive anti-HAV is consistent with recent or remote Hepatitis A infection or antibody response to HAV vaccination. False positive anti-HAV can occur. Performed by [employer], [address] [place], [place] [id number] www.[employer], Danelle Martínez MD, Lab. Director Blood BLOOD SPECIMEN / Unknown Lab Venipuncture / Unknown 02/13/2022 12:58 PM CDT 02/13/2022 1:58 PM CDT Dirk Mcdermott MD LAB - CHEMISTRY ADRIEN MARTINEZ Performing Organization Address [facility]/ZIP Co de Phone Number [facility]) [address] [place] [address] * HEPATITIS B SURFACE ANTIBODY (02/13/2022 12:58 PM CDT) Hepatitis B Virus Surface Antibody Non-react shaylee Non-react shaylee 02/13/2022 2:52 PM CDT [facility] Comment: < 8 mIU/mL Hepatitis B surface Antibody (HBsAb). Nonreactive for HBsAb - individual is considered not immune to Hepatitis B Virus infection. Hepatitis B Surface Antibody Quantitative 0.0 <8.0 mIU/mL 02/13/2022 2:52 PM CDT [facility] Comment: Hepatitis B Surface Antibody Numeric Result Interpretation: ? Nonreactive: ?<8.0 mIU/mL ? Indeterminate: ??8.0 - 12.0 mIU/mL ? Reactive: ?>12.0 mIU/mL ? Blood BLOOD SPECIMEN / Unknown Lab Venipuncture / Unknown 02/13/2022 12:58 PM CDT 02/13/2022 1:58 PM CDT Dirk Mcdermott MD LAB - CHEMISTRY ADRIEN MARTINEZ Performing Organization Address City/[facility]/ZIP Co de Phone Number [address] [address], [facility] [phone] * HEPATITIS B SURFACE ANTIGEN W RFLX CONFIRMATION (02/13/2022 12:58 PM CDT) Pathologist [facility] Hepatitis B Virus Surface Antigen Non-reacti ve Non-reacti ve 02/13/2022 2:52 PM CDT [facility] Blood BLOOD SPECIMEN / Unknown Lab Venipuncture / Unknown 02/13/2022 12:58 PM CDT 02/13/2022 1:58 PM CDT Dirk Mcdermott MD LAB - CHEMISTRY ADRIEN MARTINEZ [address] [address], [place] [phone] * HEPATITIS C AB SCREEN RFLX NAAT QUANT (02/13/2022 12:58 PM CDT) Hepatitis C Antibody Non-react shaylee Non-reac tive 02/13/2022 2:52 PM CDT [facility] Comment:Hepatitis C Antibody screen indicates [...] Mcdermott MD LAB - CHEMISTRY ADRIEN MARTINEZ [facility] Organization Address City/State/ZIP Co de Phone Number [facility] [address] [place] [address], [facility] [phone] documented in this encounter Visit Diagnoses Diagnosis Alcoholic cirrhosis of liver without ascites (HCC) Alcoholic cirrhosis of liver documented in this encounter Care Teams Furnace Firer Relationship Specialty Start Date End Date Lee Campbell MD [address] [facility] [place] [address] PCP - General Internal Medicine 04/15/21 Mat Stubbs MD [address] [place] [address] Gastroenterology 04/15/21 documented as of this encounter
--- OUTSIDE RECORDS SUMMARY | 2024-11-26 05:24 | XMS_ITS | Encounter Summary ---
Author Organization [facility] Address [address] [place] [address]. [place] [id number] [place] [address] Care Team Providers Care Toaster Element Repairer Name Role Phone Unavailable Primary Care Provider Unavailabl e Encounter Details Date Type Department Care Team (Late st Contact Info) Description 04/17/1999 Abstract [place] [address] , Generic Conversion, Social History Tobacco Use Types Packs/Day Years [...]
--- OUTSIDE RECORDS SUMMARY | 2024-11-26 05:24 | XMS_ITS | Encounter Summary ---
Author Organization [facility] Address [address] [facility] [address] Care Team Providers Care Senior Abap Developer Name Role Phone Lee Campbell MD Primary Care Provider [phone] Mat Stubbs MD Unavailable [phone] Encounter Details Date Type Department Care Team (Latest Contact Info) Description 02/13/2022 Travel Social History Tobacco Use Types Packs/Day Years Used Date Smoking Tobacco: Never Smokeless Tobacco: Never Sex and Gender Information Value Date Recorded Sex Assigned at Female 12/08/2020 7:15 PM DIRECTOR MEDICAL ECONOMICS Gender Identity Female 12/08/2020 7:15 PM DIRECTOR MEDICAL ECONOMICS Sexual Orientation Straight 12/08/2020 7: 15 PM DIRECTOR MEDICAL ECONOMICS COVID-19 Exposure Response Date Recorded In the last month, have you been in contact with someone who was confirmed or suspected to have Coronavirus / COVID-19? No / Unsure 02/13/2022 12:50 PM CDT documented as of this encounter Plan of Treatment Upcoming Encounters Date Type Department Care Team (Late st Contact Info) Description 01/02/2025 8:45 AM DIRECTOR MEDICAL ECONOMICS Appointment [facility] [address] [place] [address] 01/02/2025 9:30 AM DIRECTOR MEDICAL ECONOMICS Appointment [facility] [address] [place] [address] 01/02/2025 10:00 AM DIRECTOR MEDICAL ECONOMICS Office Visit [facility] - [address] [facility], [place] [address] Dirk Mcdermott MD [address] [place] [address] documented as of this encounter Goals Goal Patient Goal Type Associated Problems Recent Progress Patient-Stated? Author Reduce fat intake. Diet On track( 11:01 AM DIRECTOR MEDICAL ECONOMICS) No Rupali Pratt, RN Note: REDUCED FAT AND REDUCED SODIUM DIET. Safety General On track( 11:01 AM DIRECTOR MEDICAL ECONOMICS) Rupali Cruz, RN Note: Expected end date: ONGOING Interventions: Wear glasses/hearing aid Keep personal items within easy reach Use some light at night in your room documented as of this encounter Visit Diagnoses Not on filedocumented in this encounter Care Teams Senior Abap Developer Relationship Specialty Start Date End Date Lee Campbell MD [address] [facility] [place] [address] PCP - General Internal Medicine 04/15/21 Mat Stubbs MD [address] [place] [address] Gastroenterology 04/15/21 documented as of this encounter
--- OUTSIDE RECORDS SUMMARY | 2024-11-26 05:24 | XMS_ITS | Encounter Summary ---
Author Organization [facility] Address [address] [place] [address] Care Team Providers Care Lot Worker Name Role Phone Unavailable Primary Care Provider Unavailabl e Encounter Details Date Type Department Care Team (Late st Contact Info) Description 11/16/2020 1:00 PM LIFE MANAGER Rapid Evaluation [place] [facility] Community Testing [address] [address] Social History Tobacco Use Types Packs/Day Years Used Date Smoking Tobacco: Never Assessed Comments Unknown Sex and Gender Information Value Date Recorded Sex Assigned at Not on file Legal Sex Female 1:20 PM LIFE MANAGER Gender Identity Not on file Sexual Orientation Not on file documented as of this encounter Plan of Treatment Not on file documented as of this encounter Visit Diagnoses Not on filedocumented in this encounter
--- OUTSIDE RECORDS SUMMARY | 2024-11-26 05:24 | XMS_ITS | Encounter Summary ---
Author Organization [facility] Address [address] [place] [address] Care Team Providers Care Assistant Spa Director Name Role Phone Unavailable Primary Care Provider Unavailabl e Reason for Visit * Reason Onset Date Comments Pap Smear Results 06/02/2024 Encounter Details Date Type Department Care Team (Late st Contact Info) Description 06/02/2024 Telephone [facility] Clinical Support [address] [place] [address] Monika Henao RN Pap Smear Results Social History Tobacco Use Types Packs/Day Years Used Date Smoking Tobacco: Former Cigarettes Alcohol Use Standard Drinks/Week Comments Not Currently 0 (1 standard drink = 0.6 oz pur e alcohol) Sex and Gender Information Value Date Recorded Sex Assigned at Not on file Gender Identity Not on file Sexual Orientation Not on file documented as of this encounter Miscellaneous Notes * Telephone Encounter - Arianna Roberts RN - 06/05/2024 9:26 AM CDT Pt called back regarding below. Pt verbalized understanding. Transferred to scheduling. * Addendum Note - Arianna Roberts RN - 06/05/2024 8:35 AM CDTAddended by: ARIANNA ROBERTS on: 06/05/2024 08:35 AM Modules accepted: Orders * Telephone Encounter - Arianna Roberts RN - 06/05/2024 8:34 AM CDT Called pt regarding below. LVM. Prescription sent. * Telephone Encounter - Monika Henao, RN - 06/02/2024 2:03 PM CDT Images from the original note were not included. LVM instructing pt to callback for results and recommendations. Aliza Lacy MD [facility] Rn 1 Pap with normal cytology but +HRHPV. Needs colpo scheduled. Also needs PO Flagyl x 7 days for BV noted documented in this encounter Plan of Treatment Not on file documented as of this encounter Visit Diagnoses Not on filedocumented in this encounter
--- OUTSIDE RECORDS SUMMARY | 2024-11-26 05:24 | XMS_ITS | Encounter Summary ---
Author Organization [facility] Address [address] [place] [address] Care Team Providers Care Car Pick Up Driver Name Role Phone Unavailable Primary Care Provider Unavailabl e Reason for Referral * Radiology Services (Routine) - Closed Specialty Diagnoses / Procedures Referred By Jessica fleming Referred To Contact Radiology Diagnoses Well woman exam with routine gynecological exam Procedures MAMMO 3D MARITZA SCREEN BILAT W OR WO CAD CHG SCREENING MAMMOGRAPHY BI 2-VIEW BREAST INC CAD CHG SCREENING DIGITAL BREAST TOMOSYNTHESIS BI Aliza Lacy MD [address] [place] [address] [facility] [address] [place] [address] Referral ID Status Reason Start Date Expiration Date Visits Re quested Visits Authorized [id number] Closed 05/30/2024 06/30/2025 1 1 Reason for Visit * Radiology Services (Routine) - Closed Specialty Diagnoses / Procedures Referred By Contac t Referred To Contact Radiology Diagnoses Well woman exam with routine gynecological exam Procedures MAMMO 3D MARITZA SCREEN BILAT W OR WO CAD CHG SCREENING MAMMOGRAPHY BI 2-VIEW BREAST INC CAD CHG SCREENING DIGITAL BREAST TOMOSYNTHESIS BI Aliza Lacy MD [address] [place] [address] [facility] [address] [place] [address] Referral ID Status Reason Start Date Expiration Date Visits Re quested Visits Authorized [id number] Closed 05/30/2024 06/30/2025 1 1 Encounter Details Date Type Department Care Team (Latest Contact Info) Description 07/13/2024 1:00 PM CDT - 07/13/2024 11:59 PM CDT Hospital Encounter [facility] [address] [place] [phone] Aliza Salter MD [address] [place] [phone] Discharge Disposition: Home or Self Care Social [...] on file documented as of this encounter Medications at Time of Discharge Medication Sig Dispensed Refills Start Date End Date MULTIVITAMIN ORAL Take by mouth. levonorgestreL (Mirena) 21 mcg/24 hr (8 yrs) [...] made available. Aliza Lacy MD MAMMO ORDERABLES documented in this encounter Visit Diagnoses Diagnosis Well woman exam with routine gynecological exam Routine gynecological examination documented in this encounter
--- OUTSIDE RECORDS SUMMARY | 2024-11-26 05:24 | XMS_ITS | Encounter Summary ---
Author Organization [facility] Address [address] [place] [address] Care Team Providers Care Welding Systems And Equipment Repairer Name Role Phone Unavailable Primary Care Provider Unavailabl e Encounter Details Date Type Department Care Team (Late st Contact Info) Description 06/06/2024 External Device Data STL ABSTRACTION Provider, Abstract [...]
--- OUTSIDE RECORDS SUMMARY | 2024-11-26 05:24 | XMS_ITS | Encounter Summary ---
Author Organization [facility] Address [address] [place] [address] Care Team Providers Care Repairer And Checker Name Role Phone Lee Campbell MD Primary Care Provider [phone] Mat Stubbs MD Unavailable [phone] Reason for Referral * Radiology Services (Routine) - Closed Specialty Diagnoses / Procedures Referred By Contac t Referred To Contact Ultrasound Diagnoses Alcoholic cirrhosis of liver without ascites (HCC) Procedures US ABDOMEN LIMITED Dirk Mcdermott MD [address] [place] [address] [address] [place] [address] [address] Referral ID Status Reason Start Date Expiration Date Visits Re quested Visits Authorized [id number] Closed 01/13/2022 01/13/2023 1 1 RMAN Reason for Visit * Radiology Services (Routine) - Closed Specialty Diagnoses / Procedures Referred By Contac t Referred To Contact Ultrasound Diagnoses Alcoholic cirrhosis of liver without ascites (HCC) Procedures US ABDOMEN LIMITED Dirk Mcdermott MD [address] [place] [address] [address] [place] [address] [address] Referral ID Status Reason Start Date Expiration Date Visits Re quested Visits Authorized [id number] Closed 01/13/2022 01/13/2023 1 1 Encounter Details Date Type Department Care Team (Latest Contact Info) Description 01/21/2022 2:56 PM FLOORMAN - 01/21/2022 11:59 PM FLOORMAN Hospital Encounter [facility] [address] [place] [address] Dirk Mcdermott MD [address] [place] [address] [place] [address] Discharge Disposition: Home or Self Care Social History Tobacco Use Types Packs/Day Years Used Date Smoking Tobacco: Never Smokeless Tobacco: Never Sex and Gender Information Value Date Recorded Sex Assigned at Female 12/08/2020 7:15 PM FLOORMAN Gender Identity Female 12/08/2020 7:15 PM FLOORMAN Sexual Orientation Straight 12/08/2020 7: 15 PM FLOORMAN COVID-19 Exposure Response Date Recorded In the last month, have you been in contact with someone who was confirmed or suspected to have Coronavirus / COVID-19? No / Unsure 01/21/2022 2:52 PM FLOORMAN documented as of this encounter Medications at [...] st Contact Info) Description 01/02/2025 8:45 AM FLOORMAN Appointment [facility] [address] [place] [address] 01/02/2025 9:30 AM FLOORMAN Appointment [facility] [place] [address] 01/02/2025 10:00 AM FLOORMAN Office Visit [facility] - GI [address] [place] [address], [place] [address] Dirk Mcdermott MD [address] [place] [address] [place] [address] documented as of this encounter Goals Goal Patient Goal Type Associated Problems Recent Progress Patient-Stated? Author Reduce fat intake. Diet On track( 024 11:01 AM FLOORMAN) Rupali Cruz RN Note: REDUCED FAT AND REDUCED SODIUM DIET. Safety General On track( 024 11:01 AM FLOORMAN) Rupali Cruz RN Note: Expected end date: ONGOING Interventions: Wear glasses/hearing aid Keep personal items within easy reach Use some light at night in your room documented as of this encounter Procedures Procedure Name Priority Date/Time Associated Diagnosis Comments US ABDOMEN LIMITED Routine 01/21/2022 3: 52 PM FLOORMAN Alcoholic cirrhosis of liver without ascites (HCC) documented in this encounter Results * US ABDOMEN LIMITED (01/21/2022 3:52 PM FLOORMAN) Anatomical Region Laterality Modality Abdomen Ultrasound 01/21/2022 4:24 PM FLOORMAN Impressions 01/21/2022 4:27 PM FLOORMAN IMPRESSION: 1. Cirrhotic liver morphology, with no focal lesion observed. 2. Splenomegaly. This report was electronically signed by LEROY SALOMON ??on 01/21/2022 4:27 PM . Narrative 01/21/2022 4:27 PM FLOORMAN EXAMINATION: US ABDOMEN LIMITED HISTORY: K70.30: Alcoholic [...] liver documented in this encounter Care Teams Repairer And Checker Relationship Specialty Start Date End Date Lee Campbell MD [address] [place] [address] PCP - General Internal Medicine 04/15/21 Mat Stubbs MD [address] [place] [address] Gastroenterology 04/15/21 documented as of this encounter
--- OUTSIDE RECORDS SUMMARY | 2024-11-26 05:24 | XMS_ITS | Encounter Summary ---
Author Organization [facility] Address [address] [place] [address]. [place] [address] Care Team Providers Care Purchasing/Receiving Name Role Phone Unavailable Primary Care Provider Unavailabl e Encounter Details Date Type Department Care Team (Late st Contact Info) Description 10/04/2020 Patient Self-Triage [facility] DEPARTMENT [address] [place] [address] [facility] Social History Tobacco Use Types [...]
--- OUTSIDE RECORDS SUMMARY | 2024-11-26 05:24 | XMS_ITS | Encounter Summary ---
Author Organization [facility] Address [address] [place] [address] Care Team Providers Care Universal Grinder Tool Name Role Phone Unavailable Primary Care Provider [...]
--- OUTSIDE RECORDS SUMMARY | 2024-11-26 05:24 | XMS_ITS | Encounter Summary ---
Author Organization [facility] Address [address] [place] [address] Care Team Providers Care Stock Chaser Name Role Phone Unavailable Primary Care Provider Unavailabl e Encounter Details Date Type Department Care Team (Late st Contact Info) Description 07/18/2024 External Device Data STL ABSTRACTION Provider, Abstract [...]
--- OUTSIDE RECORDS SUMMARY | 2024-11-26 05:24 | XMS_ITS | Encounter Summary ---
Author Organization [facility] Address [address] [facility] [place] [address] Care Team Providers Care Food And Beverage Order Clerk Name Role Phone Lee Campbell MD Primary Care Provider [phone] Mat Stubbs MD Unavailable [phone] Encounter Details Date Type Department Care Team (Latest Contact Info) Description 04/15/2021 Travel Social History Tobacco Use Types Packs/Day Years Used Date Smoking Tobacco: Never Smokeless Tobacco: Never Sex and Gender Information Value Date Recorded Sex Assigned at Female 12/08/2020 7:15 PM METAL NUMERICAL CONTROL PROGRAMMER Gender Identity Female 12/08/2020 7:15 PM METAL NUMERICAL CONTROL PROGRAMMER Sexual Orientation Straight 12/08/2020 7: 15 PM METAL NUMERICAL CONTROL PROGRAMMER COVID-19 Exposure Response Date Recorded In the last month, have you been in contact with someone who was confirmed or suspected to have Coronavirus / COVID-19? No / Unsure 04/15/2021 1:29 PM CDT documented as of this encounter Plan of Treatment Upcoming Encounters Date Type Department Care Team (Late st Contact Info) Description 01/02/2025 8:45 AM METAL NUMERICAL CONTROL PROGRAMMER Appointment [facility] [address] [place] [address] 01/02/2025 9:30 AM METAL NUMERICAL CONTROL PROGRAMMER Appointment [facility] OP DRAW STATION [address] [place] [address] 01/02/2025 10:00 AM METAL NUMERICAL CONTROL PROGRAMMER Office Visit [facility] - [address] [facility], [place] [address] Dirk Mcdermott MD [address] [place] [address] documented as of this encounter Visit Diagnoses Not on filedocumented in this encounter Care Teams Food And Beverage Order Clerk Relationship Specialty Start Date End Date Lee Campbell MD [address] [place] [address] PCP - General Internal Medicine 04/15/21 Mat Stubbs MD [address] [place], [place] [id number] Gastroenterology 04/15/21 documented as of this encounter
--- OUTSIDE RECORDS SUMMARY | 2024-11-26 05:24 | XMS_ITS | Clinical Summary ---
Author Organization [facility] Address [address] [place] [address]. [place], [place] [address] [place] [address] Care Team Providers Care Nurseryman Assistant Name Role Phone Unavailable Primary Care Provider Unavailabl e Social History Tobacco Use Types Packs/Day Years Used Date Smoking Tobacco: Never Assessed Comments Unknown Sex and Gender Information Value Date Recorded Sex Assigned at Not on file Legal Sex Female 7:26 PM CDT Gender Identity Not on file Sexual Orientation Not on file Plan of Treatment Health Maintenance Due Date Last Done Comments Cervical Cancer Screening Pa p Smear (Age 30 to 64) Every 3 Years 1976 Colorectal Cancer Screening Colonoscopy (10 Years) 1976 Annual Physical 1979 Hepatitis C 1994 DTaP, Tdap and Td Vaccines ( 1 - Tdap) 1995 Hepatitis B Vaccines (1 of 3 - 19+ 3-dose series) 1995 Cervical Cancer Screening Pa p with HPV Testing (Age 30 to 64) Every 5 Years 2006 Cervical Cancer Screening with HPV 2006 Mammogram Screening 2016 COVID-19 Vaccine (2023-2 5 season) 2024 Influenza Adult (#1) 2024 Meningococcal Vaccine Aged Out No scot jesus eligible based on patient's age to complete this topic Pneumococcal Vaccine: Pediat rics (0 to 5 Years) and At-Risk Patients (6 to 64 Years) Aged Out No longer eligible b ased on patient's age to complete this topic RSV Immunizations Under 20 Months Aged Out No longer eligible based on patient's age to complete this topic
--- OUTSIDE RECORDS SUMMARY | 2024-11-26 05:24 | XMS_ITS | Encounter Summary ---
Author Organization [facility] Address 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); Pre-procedure lab exam Social History Tobacco Use Types Packs/Day Years [...] Pressure 114/68 07/11/2024 11:33 AM CDT Pulse - - Temperature - - Respiratory Rate - - Oxygen Saturation - - Inhaled Oxygen Concentration - - Weight 60.5 kg (133 lb 6.4 oz) 07/11/2024 11:33 AM CDT Height 162.6 cm (5' 4 ) 07/11/2024 11:33 AM CDT Body Mass Index 22.9 07/11/2024 11:33 AM CDT documented in this encounter Progress Notes * Aliza Lacy MD - 07/11/2024 11:59 AM CDT Procedure documented in this encounter Procedure Notes * Aliza Lacy MD - 07/11/2024 12:00 PM CDTAssociated Order(s): COLPOSCOPY Pre-Procedure Diagnose(s): HPV in female Pt is a 49 y.o. female with history of abnormal pap smear 05/2024 showing NILM with +HRHPV Counseling & education given on abnormal pap smears, HPV, and colposcopy. Risks/benefits/alt ofprocedure were reviewed beforehand and consents obtained. Pt was placed comfortably in stirrups. A SSE was performed with good visualization of cervix and surrounding vaginal tissue. Initial findings noted: Normal - general appearance; clean; IUD strings visible. Acetic acid applied. Aceto-white changes are not noted. Punctation, mosaicism, and/or abnormal vessels are not noted. Colposcopy was adequate with entire transformation zone seen. ECC was performed. IUD strings remained intact. All specimens were sent for pathology. Monsel's was applied for hemostasis which was assured. All instruments were removed. Patient tolerated the procedure well and was discharged to home in stable condition. All questions answered. Follow-up pending pathology results. Aliza Lacy MD documented in this encounter Plan of Treatment Not on file documented as of this encounter Procedures Procedure Name Priority Date/Time Associated Diagnosis Comments PATHOLOGY Routine 07/11/2024 12:30 PM CDT HPV in female POC , URINE Routine 07/11/2024 12:11 PM CDT Pre-procedure lab exam COLPOSCOPY Routine 07/11/2024 12:00 PM CDT HPV in female documented in this encounter Results * PATHOLOGY (07/11/2024 12:30 PM CDT) CASE REPORT Surgical Pathology Report ? Case: [id number] ? Authorizing Provider: ??Regino , ?Collected: ? 07/11/2024 12:30 PM ? Aliza Nguyễn MD ? Ordering Location: ? [facility] Received: ?07/12/2024 07:48 AM ? [address] ? Pathologist: ? Shirley, Paul Mercado, ? MD ? Specimen: ?Endocervix, ECC ? 4 12:[address] [facility] FINAL DIAGNOSIS Endocervix, curettage: - Low-grade squamous intraepithelial lesion (LSIL, JAREN-1) 4 12:[address] [facility] S DESCRIPTION Received in a single container labeled Alea Garcia, endocervix ECC is a 1.3 x 0.1 by less than 0.1 cm aggregate of ramsay tissue and translucent mucoid material. The specimen is submitted entirely labeled A1. KA 4 12:[address] [facility] MICROSCOPIC DESCRIPTION The slides are labeled [id number] and Alea Garcia. Sections show a fragment of squamous mucosa with nuclear enlargement, hyperchromasia, and irregular nuclear contours, consistent with low-grade squamous intraepithelial lesion. 4 12:[address] [facility] CLINICAL INFORMATION B97.7 - HPV in female [ICD-10-CM] 4 12:[address] [facility] COMMENT Special stain, immunohistochemical, and/or in situ hybridization results are interpreted with controls that demonstrate appropriate staining reactions. Note on use of immunohistochemistry reagents and in situ hybridization probes: These tests were developed and their performance characteristics determined by [facility], Department of Laboratory Medicine. It has not been cleared or approved by the U.S. Food and Drug Administration. The FDA has determined that such clearance or approval is not necessary. The test is used for clinical purposes. It should not be regarded as investigational or for research. This laboratory is certified to perform high complexity testing. Frozen section/operating room consultation, gross examination and dissection, and case sign out may have been performed in part or completely in the following laboratories: [facility], CLIA #[id number] [address] [place] [address] [facility], CLIA #[id number] [address] [place] [address] [facility], CLIA #[id number] [address] [facility] [place] [address] This report was created with the Authentic[employer] voice-activated dictation system. Inherent to this system is the possibility of syntax, grammar, punctuation and other errors that could impact the interpretation of the report. If there are interpretative questions about aspects of this report, please contact the performing pathologist. 12:11 PM CDT [facility] Tissue SWAB OF ENDOCERVIX / Unknown Collection / Unknown 07/11/2024 12:30 PM CDT 07/12/2024 7:48 AM CDT Aliza Lacy MD PATHOLOGY/CYTOLOGY ORDERABLES [facility] CLIA# [id number] [address] [place] [address] * POC , URINE (07/11/2024 12:11 PM CDT) HCG QUAL URINE POC Negative Negative, Indeterminate [facility] INTERNAL KIT QC POC Pass Pass [facility] K[facility] LOT NUMBER POC [phone] [facility] KIT EXP DATE POC 11/24/25 [facility] Urine 07/11/2024 12:1 1 PM CDT Aliza Lacy MD POINT OF CARE TESTING [facility] CLIA# [id number] [address] [facility], [address] [place] [address] * COLPOSCOPY (07/11/2024 12:00 PM CDT) Narrative [facility] - 07/11/2024 12:00 PM CDT Aliza Lacy MD ? 07/11/2024 12:19 PM Pt is a 49 y.o. female with history of abnormal pap smear 05/2024 showing NILM with +HRHPV Counseling & education given on abnormal pap smears, HPV, and colposcopy. ??Risks/benefits/alt of procedure were reviewed beforehand and consents obtained. Pt was placed comfortably in stirrups. ??A SSE was performed with good visualization of cervix and surrounding vaginal tissue. ?? Initial findings noted: Normal - general appearance; clean; IUD strings visible. Acetic acid applied. ??Aceto-white changes are not noted. Punctation, mosaicism, and/or abnormal vessels are not noted. Colposcopy was adequate with entire transformation zone seen. ECC was performed. IUD strings remained intact. All specimens were sent for pathology. ?? Monsel's was applied for hemostasis which was assured. ??All instruments were removed. ??Patient tolerated the procedure well and was discharged to home in stable condition. ??All questions answered. ?? Follow-up pending pathology results. Aliza Lacy MD Aliza Lacy MD PROCEDURE/MINOR SURGICAL ORDERABLES [facility] CLIA# [id number] [address] [place] [address], [address] [place] [address] documented in this encounter Visit Diagnoses Diagnosis HPV in female- Primary Human papillomavirus in conditions classified elsewhere and of unspecified site Pre-procedure lab exam Pre-procedural laboratory examination documented in this encounter
--- OUTSIDE RECORDS SUMMARY | 2024-11-26 05:24 | XMS_ITS | Encounter Summary ---
Author Organization [facility] Address [address] [facility] [place] [address] Care Team Providers Care Patrol Deputy Sheriff Name Role Phone Lee Campbell MD Primary Care Provider [phone] Mat Stubbs MD Unavailable [phone] Encounter Details Date Type Department Care Team (Latest Contact Info) Description 07/17/2022 12:48 PM CDT - 07/17/2022 11:59 PM CDT Hospital Encounter [facility] OP DRAW STATION [address] [place] [address] Lani Hernandez PA-C [address] [facility] [place] [address] Discharge Disposition: Home or Self Care Social History Tobacco Use Types Packs/Day Years Used Date Smoking Tobacco: Never Smokeless Tobacco: Never Sex and Gender Information Value Date Recorded Sex Assigned at Female 12/08/2020 7:15 PM CHAIN DYER Gender Identity Female 12/08/2020 7:15 PM CHAIN DYER Sexual Orientation Straight 12/08/2020 7: 15 PM CHAIN DYER documented as of this encounter Medications at [...] st Contact Info) Description 01/02/2025 8:45 AM CHAIN DYER Appointment [facility] [address] [place] [address] 01/02/2025 9:30 AM CHAIN DYER Appointment [facility] OP DRAW STATION [address] [place] [address] 01/02/2025 10:00 AM CHAIN DYER Office Visit [facility] - GI [address] [facility], [place] [address] Dirk Mcdermott MD [address] [place] [address] [address] [facility] [place] [address] documented as of this encounter Goals Goal Patient Goal Type Associated Problems Recent Progress Patient-Stated? Author Reduce fat intake. Diet On track( 11:01 AM CHAIN DYER) No Rupali Pratt, RN Note: REDUCED FAT AND REDUCED SODIUM DIET. Safety General On track( 11:01 AM CHAIN DYER) No Rupali Pratt, RN Note: Expected end date: ONGOING Interventions: Wear glasses/hearing aid Keep personal items within easy reach Use some light at night in your room documented as of this encounter Procedures Procedure Name Priority Date/Time Associated Diagnosis Comments PT-INR [facility] Routine 07/17/2022 1:02 PM CDT Alcoholic cirrhosis of liver without ascites (HCC) CBC W AUTO DIFFERENTIAL Routine 07/17/2022 1:02 PM CDT Alcoholic cirrhosis of liver without ascites (HCC) BASIC METABOLIC PANEL (CALCIUM TOTAL) Routine 07/17/2022 1:02 PM CDT Alcoholic cirrhosis of liver without ascites (HCC) HEPATIC FUNCTION PANEL Routine 07/17/2022 1:02 PM CDT Alcoholic cirrhosis of liver without ascites (HCC) documented in this encounter Results * PT-INR [facility] (07/17/2022 1:02 PM CDT) PT 14.4 12.1 - 14.8 Seconds 07/17/2022 1:46 PM T [facility] INR 1.1 See Comment 07/17/2022 1:46 PM [facility] Comment:The suggested therap eutic range for standard coumadin (warfarin) therapy is an INR of 2.0-3.0. For high-risk patients (Mechanical Mitral Valve Prosthesis, etc.), the suggested prophylactic therapeutic range is an INR of 2.5-3.5. Blood BLOOD SPECIMEN / Unknown Lab Venipuncture / Unknown 07/17/2022 1:02 PM CDT 07/17/2022 1:21 PM CDT Lani Hernandez PA-C LAB - COAGULATI ON ORDERABLES [facility] [address] [place] [address], [facility] [phone] * (ABNORMAL) CBC WITH DIFFERENTIAL (07/17/2022 1:02 PM CDT) Pathologist [facility] WBC 5.7 3.5 - 10.5 10? 3 /uL 07/17/2022 1:33 PM [facility] RBC 4.95 3.80 - 5.20 10? 6 /uL 07/17/2022 1:33 PM [facility] Hemoglobin 14.5 12.0 - 15.6 g/dL 07/17/2022 1:33 PM [facility] Hematocrit 43.0 35.0 - 45.0 % 07/17/2022 1:33 PM [facility] MCV 86.9 80.7 - 98.3 fL 07/17/2022 1:33 PM [facility] MCH 29.3 26.7 - 34.0 pg 07/17/2022 1:33 PM [facility] MCHC 33.7 30.8 - 35.9 g/dL 07/17/2022 1:33 PM [facility] Platelet Count 75(L) 150 - 400 10? 3 /uL 07/17/2022 1:33 PM [facility] RDW-SD 40.2 36.0 - 50.0 fL 07/17/2022 1:33 PM [facility] RDW-CV 12.7 11.2 - 14.8 % 07/17/2022 1:33 PM [facility] MPV 12.2 9.4 - 12.9 fL 07/17/2022 1:33 PM [facility] nRBC Absolute 0.00 0 10? 3 /uL 07/17/2022 1:33 PM [facility] nRBC Auto 0.0 0 /100 WBC 07/17/2022 1:33 PM [facility] Neutrophils % 69.2 35.0 - 70.0 % 07/17/2022 1:33 PM [facility] Lymphocytes % 22.3 20.0 - 43.0 % 07/17/2022 1:33 PM [facility] Monocytes % 6.4 5.0 - 13.0 % 07/17/2022 1:33 PM [facility] Eosinophils % 0.9 0.0 - 6.0 % 07/17/2022 1:33 PM [facility] Basophil % 0.7 0.0 - 2.0 % 07/17/2022 1:33 PM [facility] Neutrophils Absolute 3.97 1.60 - 7.00 10? 3 /uL 07/17/2022 1:33 PM [facility] Lymphocyte Absolute 1.28 1.10 - 3.90 10? 3 /uL 07/17/2022 1:33 PM [facility] Monocytes Absolute 0.37 0.26 - 1.07 10? 3 /uL 07/17/2022 1:33 PM [facility] Eosinophils Absolute 0.05 0.00 - 0.47 10? 3 /uL 07/17/2022 1:33 PM [facility] Basophils Absolute 0.04 0.00 - 0.08 10? 3 /uL 07/17/2022 1:33 PM [facility] Immature Granulocytes % 0.5 0.0 - 1.0 % 07/17/2022 1:33 PM [facility] Immature Granulocytes Absolute 0.03 07/17/2022 1:33 PM [facility] Blood BLOOD SPECIMEN / Unknown Lab Venipuncture / Unknown 07/17/2022 1:02 PM CDT 07/17/2022 1:19 PM CDT Lani Hernandez PA-C LAB - HEMATOLOG Y ORDERABLES Performing Organization Address City/[facility]/ZIP Co de Phone Number [facility] [address] [place] [address], [facility] [phone] * BASIC METABOLIC PANEL (CALCIUM TOTAL) (07/17/2022 1:02 PM CDT) BUN 10 7 - 26 mg/dL 07/17/2022 1:50 PM [facility] Creatinine 0.60 0.56 - 0.96 mg/dL 07/17/2022 1:50 PM [facility] Sodium 142 136 - 145 mmol/L 07/17/2022 1:50 PM [facility] Potassium 3.8 3.5 - 4.5 mmol/L 07/17/2022 1:50 PM [facility] Chloride 104 98 - 107 mmol/L 07/17/2022 1:50 PM [facility] CO2 27 22 - 29 mmol/L 07/17/2022 1:50 PM [facility] Glucose 82 70 - 115 mg/dL 07/17/2022 1:50 PM [facility] Calcium 9.8 8.4 - 10.2 mg/dL 07/17/2022 1:50 PM [facility] Anion Gap 15 8 - 18 07/17/2022 1:50 PM [facility] BUN/Creatinine Ratio 17 7 - 23 07/17/2022 1:50 PM [facility] Osmolality Calculated 292 270 - 300 mOsm/kg 07/17/2022 1:50 PM [facility] eGFR by CKD-EPI >90 >=90 mL/min/1.7 3 m2 07/17/2022 1:50 PM [facility] Blood BLOOD SPECIMEN / Unknown Lab Venipuncture / Unknown 07/17/2022 1:02 PM CDT 07/17/2022 1:19 PM CDT Lani Hernandez PA-C LAB - CHEMISTRY ORDERABLES [facility] [address] [place] [address], [facility] [phone] * (ABNORMAL) HEPATIC FUNCTION PANEL (07/17/2022 1:02 PM CDT) Protein Total 7.9 6.0 - 8.3 g/dL 022 1:50 PM CDT [facility] Albumin 4.5 3.4 - 5.0 g/dL 07/17/2022 1:50 PM CDT [facility] Bilirubin Total 1.6(H) 0.2 - 1.2 mg/dL 06/23 1:50 PM CDT [facility] Bilirubin Conjugated 0.7(H) 0.1 - 0.5 mg/dL 07/17/2022 1:50 PM T [facility] Bilirubin Unconjugated 0.9 Unconjugated Bilirubin is a calculated value: Reference ranges have not been established. mg/dL 07/17/2022 1:50 PM CDT [facility] Alkaline Phosphatase 85 40 - 150 U/L 07/17/2022 1:50 PM CDT [facility] ALT 29 5 - 55 U/L 07/17/2022 1:50 PM T [facility] AST 40(H) 5 - 34 U/L 07/17/2022 1:50 PM T [facility] Albumin/Globulin Ratio 1.3 1.1 - 2.3 07/17/2022 1:50 PM T [facility] Blood BLOOD SPECIMEN / Unknown Lab Venipuncture / Unknown 07/17/2022 1:02 PM CDT 07/17/2022 1:19 PM CDT Lani Hernandez PA-C LAB - CHEMISTRY ORDERABLES [facility] [address] [place] [address], [facility] [phone] documented in this encounter Visit Diagnoses Diagnosis Alcoholic cirrhosis of liver without ascites (HCC) Alcoholic cirrhosis of liver documented in this encounter Care Teams Patrol Deputy Sheriff Relationship Specialty Start Date End Date Lee Campbell MD [address] [place] [address] PCP - General Internal Medicine 04/15/21 Mat Stubbs MD [address] [place], [place] [id number] Gastroenterology 04/15/21 documented as of this encounter
--- OUTSIDE RECORDS SUMMARY | 2024-11-26 05:24 | XMS_ITS | Encounter Summary ---
Author Organization [facility] Address [address] [place] [address]. [place], [place] [address] [place] [address] Care Team Providers Care Unit Aid Name Role Phone Unavailable Primary Care Provider Unavailabl e Encounter Details Date Type Department Care Team (Late st Contact Info) Description 11/20/[address] [facility] [address] [place] [address] Jourdan Tenorio MD Social History Tobacco Use Types Packs/Day [...]
--- OUTSIDE RECORDS SUMMARY | 2024-11-26 05:24 | XMS_ITS | Encounter Summary ---
Author Organization [facility] Address [address] [place] [address]. [place] [address] Care Team Providers Care Surgical Physician Assistant Name Role Phone Unavailable Primary Care Provider Unavailabl e Encounter Details Date Type Department Care Team (Late st Contact Info) Description 10/04/2020 Patient Self-Triage [facility] DE[facility] [address] [place] [address] [facility] Provider Social History Tobacco Use Types Packs/Day [...]
--- OUTSIDE RECORDS SUMMARY | 2024-11-26 05:24 | XMS_ITS | Encounter Summary ---
Author Organization [facility] Address [address] [place] [address] Care Team Providers Care Multigrapher Name Role Phone Unavailable Primary Care Provider Unavailabl e Encounter Details Date Type Department Care Team (Late st Contact Info) Description 11/12/2020 Lab Requisition [facility] Testing [facility] [address] [place] [address] Slinger, [place] [address] [place] [address] Social History Tobacco Use Types Packs/Day Years Used Date Smoking Tobacco: Never Assessed Comments Unknown Sex and Gender Information Value Date Recorded Sex Assigned at Not on file Legal Sex Female 1:20 PM RN CARDIAC Gender Identity Not on file Sexual Orientation Not on file documented as of this encounter Plan of Treatment Not on file documented as of this encounter Procedures Procedure Name Priority Date/Time Associated Diagnosis Comments SARS-COV-2 PCR [facility] ONLY Routine 11/12/2020 1:33 PM RN CARDIAC documented in this encounter Visit Diagnoses Not on filedocumented in this encounter
--- OUTSIDE RECORDS SUMMARY | 2024-11-26 05:24 | XMS_ITS | Encounter Summary ---
Author Organization [facility] Address [address] [facility] [address] Care Team Providers Care Java Lead Name Role Phone Lee Campbell MD Primary Care Provider [phone] Mat Stubbs MD Unavailable [phone] Encounter Details Date Type Department Care Team (Latest Contact Info) Description 01/21/2022 Travel Social History Tobacco Use Types Packs/Day Years Used Date Smoking Tobacco: Never Smokeless Tobacco: Never Sex and Gender Information Value Date Recorded Sex Assigned at Female 12/08/2020 7:15 PM AVIONICS SYSTEM ENGINEER Gender Identity Female 12/08/2020 7:15 PM AVIONICS SYSTEM ENGINEER Sexual Orientation Straight 12/08/2020 7: 15 PM AVIONICS SYSTEM ENGINEER COVID-19 Exposure Response Date Recorded In the last month, have you been in contact with someone who was confirmed or suspected to have Coronavirus / COVID-19? No / Unsure 01/21/2022 2:52 PM AVIONICS SYSTEM ENGINEER documented as of this encounter Plan of Treatment Upcoming Encounters Date Type Department Care Team (Late st Contact Info) Description 01/02/2025 8:45 AM AVIONICS SYSTEM ENGINEER Appointment [facility] [address] [place] [address] 01/02/2025 9:30 AM AVIONICS SYSTEM ENGINEER Appointment [facility] OP DRAW STATION [address] [place] [address] 01/02/2025 10:00 AM AVIONICS SYSTEM ENGINEER Office Visit [facility] - [address] [facility], [place] [address] Dirk Mcdermott MD [address] [place] [address] documented as of this encounter Goals Goal Patient Goal Type Associated Problems Recent Progress Patient-Stated? Author Reduce fat intake. Diet On track( 11:01 AM AVIONICS SYSTEM ENGINEER) No Rupali Pratt, RN Note: REDUCED FAT AND REDUCED SODIUM DIET. Safety General On track( 11:01 AM AVIONICS SYSTEM ENGINEER) Rupali Cruz, RN Note: Expected end date: ONGOING Interventions: Wear glasses/hearing aid Keep personal items within easy reach Use some light at night in your room documented as of this encounter Visit Diagnoses Not on filedocumented in this encounter Care Teams Java Lead Relationship Specialty Start Date End Date Lee Campbell MD [address] [facility] [place] [address] PCP - General Internal Medicine 04/15/21 Mat Stubbs MD [address] [place] [address] Gastroenterology 04/15/21 documented as of this encounter
--- OUTSIDE RECORDS SUMMARY | 2024-11-26 05:24 | XMS_ITS | Encounter Summary ---
Author Organization [facility] Address [address] [place] [address]. [place] [address] Care Team Providers Care Data Entry Specialist Name Role Phone Unavailable Primary Care Provider Unavailabl e Encounter Details Date Type Department Care Team (Late st Contact Info) Description 10/04/2020 Patient Self-Triage [facility] DEPARTMENT [address] [place] [id number] [facility] Social History Tobacco Use Types Packs/Day [...]
--- OUTSIDE RECORDS SUMMARY | 2024-11-26 05:24 | XMS_ITS | Encounter Summary ---
Author Organization [facility] Address [address] [place] [address]. [place] [address] [place] [address] Care Team Providers Care Estimator Binding Name Role Phone Unavailable Primary Care Provider Unavailabl e Encounter Details Date Type Department Care Team (Late st Contact Info) Description 06/12/[address] [facility] [address] [place] [address] John Diaz DO [address] [facility] [address] [place], [place] [id number] Social History Tobacco Use Types Packs/Day Years [...]
--- OUTSIDE RECORDS SUMMARY | 2024-11-26 05:24 | XMS_ITS | Encounter Summary ---
Author Organization [facility] Address [address] [facility] [place] [address] Care Team Providers Care Chipper Operator Name Role Phone Lee Campbell MD Primary Care Provider [phone] Mat Stubbs MD Unavailable [phone] Reason for Visit * Reason Comments Cirrhosis Establish Care Encounter Details Date Type Department Care Team (Latest Contact Info) Description 04/15/2021 12:00 PM CDT Office Visit [facility] - GI [address] [place] [address], [place] [id number] Dirk Mcdermott MD [address] [place] [address] [place] [address] Alcoholic liver disease (HCC) (Primary Dx); Alcoholic cirrhosis of liver without ascites (HCC); Alcohol abuse, uncomplicated Social History Tobacco Use Types Packs/Day Years Used Date Smoking Tobacco: Never Smokeless Tobacco: Never Sex and Gender Information Value Date Recorded Sex Assigned at Female 12/08/2020 7:15 PM TYPEWRITER MECHANIC Gender Identity Female 12/08/2020 7:15 PM TYPEWRITER MECHANIC Sexual Orientation Straight 12/08/2020 7: 15 PM TYPEWRITER MECHANIC COVID-19 Exposure Response Date Recorded In the last month, have you been in contact with someone who was confirmed or suspected to have Coronavirus / COVID-19? No / Unsure 04/15/2021 1:29 PM CDT documented as of this encounter Last Filed Vital Signs Vital Sign Reading Time Taken Comments Blood Pressure 160/83 04/15/2021 12:28 PM CDT Pulse 99 04/15/2021 12:28 PM CDT Temperature 36.6 ??C (97.8 ??F) 04/15/2021 12:28 PM C DT Respiratory Rate - - Oxygen Saturation 100% 04/15/2021 12:28 PM CDT Inhaled Oxygen Concentration - - Weight 62 kg (136 lb 9.6 oz) 04/15/2021 12:28 PM CDT Height 162.6 cm (5' 4 ) 04/15/2021 12:28 PM CDT Body Mass Index 23.45 04/15/2021 12:28 PM CDT documented in this encounter Progress Notes * Dirk Mcdermott MD - 04/15/2021 12:41 PM CDT Liver Attending Note Referring physician: No referring provider defined for this encounter. Primary Care Physician: Lee Campbell MD HPI: Chief Complaint Patient presents with ??? Cirrhosis ??? Establish Care 46 year old female with h/o jaundice who presents for evaluation of alcohol ( in liver, continuous, severe, no alleviating or exacerbating factors) 6 months of nausea and vomiting Summer [...] herbs and supplements except as already listed. Current Outpatient Medications Medication Sig ??? levonorgestrel (MIRENA, 52 MG,) 20 MCG/24HR IUD Mirena 20 mcg/24 hours (6 yrs) 52 mg intrauterine device Take by intrauterine route. No current facility-administered medications for this visit. Patient Active Problem List: Alcoholic liver disease Past Medical History: Past Medical History: Diagnosis Date ??? Broken arm Past Surgical History: Procedure Laterality Date ??? Section ??? Tonsillectomy and Adenoidectomy Social History: Patient denies current smoking Patient denies current drinking see above Patient denies IDU Review of Symptoms: Review of Systems Constitutional: Negative for chills and fever. HENT: Negative for hearing loss and tinnitus. Eyes: Negative for blurred vision and double vision. Respiratory: Negative for cough and shortness of breath. Cardiovascular: Negative for chest pain and palpitations. Gastrointestinal: Negative for nausea and vomiting. Genitourinary: Negative for dysuria and urgency. Musculoskeletal: Negative for back pain and neck pain. Skin: Negative for itching and rash. Neurological: Negative for dizziness and headaches. Endo/Heme/Allergies: Positive for environmental allergies. Does not bruise/bleed easily. Psychiatric/Behavioral: Negative for depression. The patient is nervous/anxious. Mild I reviewed the past medical history, social history, family medical history, problem list and medication as documented in the [facility] EHR today. Physical Examination: Blood pressure 160/83, pulse 99, temperature 97.8 ??F (36.6 ??C), temperature source Oral, height 1.626 m (5' 4 ), weight 62 kg (136 lb 9.6 oz), SpO2 100 %. Body mass index is 23.45 kg/m??. General appearance Well nourished well developed no acute distress Eyes: anicteric Ears, Nose and Throat: normal Skin: no jaundice, manifestation of chronic liver disease and no nodules Lungs: clear to ascultation bilaterally, no dullness Heart: regular rate and rhythm no thrills 2/6 ANDREA Abdomen: Bowel sounds normoactive soft non-tender, non-distended, no ascites, no masses, no hepatosplenomegaly Extremities: no clubbing cyanosis or edema Mental status: Alert and oriented Neurologic: exam grossly nonfocal Psychiatric: normal affect and mood Labs/data: Recent Labs Component Name 04/15/21 1338 BUN 8 CREATININE 0.53* NA 141 POTASSIUM 3.5 CL 106 CO2 25 CALCIUM 9.3 PROT 7.7 ALB 4.2 TBILI 1.6* ALKPHOS 95 ALT 33 AST 52* ANIONGAP 14 BCR 15 OSMOLALITY 290 AGRATIO 1.2 EGFR >90 Recent Labs Component Name 04/15/21 1338 WBC 5.7 HGB 13.2 HCT 39.2 PLTCOUNT 73* Recent Labs Component Name 04/15/21 1338 INR 1.2 Labs and test results were reviewed with the patient Impression: 1. Alcohol related liver disease uncertain if cirrhosis 2. Alcohol use disorder in remission discussed need for lifelong complete abstinence Plan: 1. Labs CBC CMP INR and lab w/u for chronic liver disease if needed after review of current and prior labs 2.An appointment was scheduled for her to see me in followup in 2 months. 3. STEFAN labs and CT notes from Dr Stubbs and [facility] Dirk Mcdermott MD PS Low plts highly suggestive of cirrhosis, await records and fibroscan results documented in this encounter Plan of Treatment Upcoming Encounters Date Type Department Care Team (Late st Contact Info) Description 01/02/2025 8:45 AM TYPEWRITER MECHANIC Appointment [facility] [address] [place] [address] 01/02/2025 9:30 AM TYPEWRITER MECHANIC Appointment [facility] OP DRAW STATION [address] [place] [address] 01/02/2025 10:00 AM TYPEWRITER MECHANIC Office Visit [facility] - GI [address] [place] [address], [place] [address] Dirk Mcdermott MD [address] [place] [address] [place] [address] documented as of this encounter Results * PT-INR [facility] (04/15/2021 1:38 PM CDT) PT 14.8 12.1 - 14.8 Seconds 04/15/2021 2:57 PM CDT [facility] INR 1.2 See Comment 04/15/2021 2:57 PM CDT [facility] Comment:The suggested therap eutic range for standard coumadin (warfarin) therapy is an INR of 2.0-3.0. For high-risk patients (Mechanical Mitral Valve Prosthesis, etc.), the suggested prophylactic therapeutic range is an INR of 2.5-3.5. Blood BLOOD SPECIMEN / Unknown Lab Venipuncture / Unknown 04/15/2021 1:38 PM CDT 04/15/2021 2:47 PM CDT Dirk Mcdermott MD LAB - COAGULATION OR DERABLES [facility] [address] [place] [address], [facility] [phone] * (ABNORMAL) COMPREHENSIVE METABOLIC PANEL (04/15/2021 1:38 PM CDT) BUN 8 7 - 26 mg/dL 04/15/2021 3:05 PM [facility] Creatinine 0.53(L) 0.56 - 0.96 mg/dL 04/15/2021 3:05 PM [facility] Sodium 141 136 - 145 mmol/L 04/15/2021 3:05 PM [facility] Potassium 3.5 3.5 - 4.5 mmol/L 04/15/2021 3:05 PM [facility] Chloride 106 98 - 107 mmol/L 04/15/2021 3:05 PM [facility] CO2 25 22 - 29 mmol/L 04/15/2021 3:05 PM [facility] Glucose 98 70 - 115 mg/dL 04/15/2021 3:05 PM [facility] Calcium 9.3 8.4 - 10.2 mg/dL 04/15/2021 3:05 PM [facility] Protein Total 7.7 6.0 - 8.3 g/dL 04/15/2021 3:05 PM [facility] Albumin 4.2 3.4 - 5.0 g/dL 04/15/2021 3:05 PM [facility] Bilirubin Total 1.6(H) 0.2 - 1.2 mg/dL 04/15/2021 3:05 PM [facility] Alkaline Phosphatase 95 40 - 150 U/L 04/15/2021 3:05 PM [facility] ALT 33 5 - 55 U/L 04/15/2021 3:05 PM [facility] AST 52(H) 5 - 34 U/L 04/15/2021 3:05 PM [facility] Anion Gap 14 8 - 18 04/15/2021 3:05 PM [facility] BUN/Creatinine Ratio 15 7 - 23 04/15/2021 3:05 PM [facility] Osmolality Calculated 290 270 - 300 mOsm/kg 04/15/2021 3:05 PM [facility] Albumin/Globulin Ratio 1.2 1.1 - 2.3 04/15/2021 3:05 PM [facility] eGFR by CKD-EPI >90 >=90 mL/min/1.7 3 m2 04/15/2021 3:05 PM [facility] Blood BLOOD SPECIMEN / Unknown Lab Venipuncture / Unknown 04/15/2021 1:38 PM CDT 04/15/2021 2:17 PM CDT Dirk Mcdermott MD LAB - CHEMISTRY [facility]ARTINE[facility] Organization Address City/[facility] Co de Phone Number [address] [address], [facility] [phone] * (ABNORMAL) CBC WITH DIFFERENTIAL (04/15/2021 1:38 PM CDT) WBC 5.7 3.5 - 10.5 10? 3 /uL 04/15/2021 3:20 PM [facility] RBC 4.38 3.80 - 5.20 10? 6 /uL 04/15/2021 3:20 PM [facility] Hemoglobin 13.2 12.0 - 15.6 g/dL 04/15/2021 3:20 PM [facility] Hematocrit 39.2 35.0 - 45.0 % 04/15/2021 3:20 PM [facility] MCV 89.5 80.7 - 98.3 fL 04/15/2021 3:20 PM [facility] MCH 30.1 26.7 - 34.0 pg 04/15/2021 3:20 PM [facility] MCHC 33.7 30.8 - 35.9 g/dL 04/15/2021 3:20 PM [facility] Platelet Count 73(L) 150 - 400 10? 3 /uL 04/15/2021 3:20 PM [facility] Comment: Checked by peripheral smear. This is an appended report. ??These results have been appended to a previously preliminary verified report. RDW-SD 43.2 36.0 - 50.0 fL 04/15/2021 3:20 PM [facility] RDW-CV 13.1 11.2 - 14.8 % 04/15/2021 3:20 PM [facility] MPV 12.0 9.4 - 12.9 fL 04/15/2021 3:20 PM [facility] nRBC Absolute 0.00 0 10? 3 /uL 04/15/2021 3:20 PM [facility] nRBC Auto 0.0 0 /100 WBC 04/15/2021 3:20 PM [facility] Neutrophils % 72.8(H) 35.0 - 70.0 % 04/15/2021 3:20 PM [facility] Lymphocytes % 16.6(L) 20.0 - 43.0 % 04/15/2021 3:20 PM [facility] Monocytes % 9.0 5.0 - 13.0 % 04/15/2021 3:20 PM [facility] Eosinophils % 0.7 0.0 - 6.0 % 04/15/2021 3:20 PM [facility] Basophil % 0.5 0.0 - 2.0 % 04/15/2021 3:20 PM [facility] Neutrophils Absolute 4.1 1.6 - 7.0 10? 3 /uL 04/15/2021 3:20 PM [facility] Lymphocyte Absolute 0.9(L) 1.1 - 3.9 10? 3 /uL 04/15/2021 3:20 PM [facility] Monocytes Absolute 0.51 0.26 - 1.07 10? 3 /uL 04/15/2021 3:20 PM [facility] Eosinophils Absolute 0.04 0.00 - 0.47 10? 3 /uL 04/15/2021 3:20 PM [facility] Basophils Absolute 0.03 0.00 - 0.08 10? 3 /uL 04/15/2021 3:20 PM CDT [facility] Immature Granulocytes % 0.4 0.0 - 1.0 % 04/15/2021 3:20 PM CDT [facility] Immature Granulocytes Absolute 0.02 04/15/2021 3:20 PM CDT [facility] Blood BLOOD SPECIMEN / Unknown Lab Venipuncture / Unknown 04/15/2021 1:38 PM CDT 04/15/2021 2:14 PM CDT Dirk Mcdermott MD LAB - HEMATOLOGY ORD ERABLES [facility] [address] [place] [address], [facility] [phone] documented in this encounter Visit Diagnoses Diagnosis Alcoholic liver disease (HCC)- Primary Alcoholic liver damage, unspecified Alcoholic cirrhosis of liver without ascites (HCC) Alcoholic cirrhosis of liver Alcohol abuse, uncomplicated documented in this encounter Care Teams Chipper Operator Relationship Specialty Start Date End Date Lee Campbell MD [address] [facility] [place] [address] PCP - General Internal Medicine 04/15/21 Mat Stubbs MD [address] [place] [address] Gastroenterology 04/15/21 documented as of this encounter
--- OUTSIDE RECORDS SUMMARY | 2024-11-26 05:25 | XMS_ITS | Encounter Summary ---
Author Organization [facility] Address [address] [place] [address] Care Team Providers Care Safety And Health Manager Name Role Phone Unavailable Primary Care Provider Unavailabl e Encounter Details Date Type Department Care Team (Late st Contact Info) Description 07/19/2024 External Device Data [facility] ABSTRACTION Provider, Abstract [...]
== END 2024-11-19 10:28 | disposition home or self-care (01) ==
PROVIDERS: Emergency Provider Nurse Practitioner Family
DX: U07.1 COVID-19 (principal); H66.90 Otitis media, unspecified, unspecified ear
CPT/HCPCS: 87426; 87804; 99213; G0463